=== PATIENT | female | born 1940 | race Caucasian/White ===

== ENCOUNTER 2023-02-10 10:35 | Inpatient (IN) | payer MEDICARE, OTHER, SELFPAY ==
[2023-02-10] VITALS (13 sets, daily range): BP systolic 94–139; BP diastolic 35–75; PULSE 82–112; RESP 18–24; TEMP 36.6–37.4; O2SAT 90–92; BMI 34.9
--- NOTE | ~2023-02-10 | CT_ITS ---
EXAMINATION: CT HEAD WITHOUT CONTRAST CLINICAL INFORMATION: Slurred speech. COMPARISON: None available. TECHNIQUE: Contiguous axial imaging was performed from the skull base to vertex without intravenous administration of contrast. This CT examination was performed using dose optimization techniques as appropriate, variously including the following: *Automated exposure control *Adjustment of mA and/or kV according to patient size (this includes techniques or standardized protocols for targeted exams where dose is matched to indication/reason for exam; i.e. extremities or head) *Use of iterative reconstruction technique DLP: 708 mGy-cm FINDINGS: There is cerebral volume loss with prominence of the lateral and the third ventricles. The cortical sulci are widened appropriately. The fourth ventricle and basal cisterns are normally outlined. There is mild to moderate bilateral periventricular and central white matter diminished attenuation. There is an old anterior left thalamic lacunar infarct. There is a hypodensity within the upper left estefania/cerebral peduncle without significant mass effect also suggesting a lacunar infarct. There is no definitive significant territorial defect, hemorrhage or midline shift. The extra-axial spaces are unremarkable. Calvarium: Intact. Maxillofacial sinuses and mastoids: Clear as visualized. CT/CT head/brain wo IV con IMPRESSION: Cerebral volume loss and [id number] bilateral periventricular and central white matter diminished attenuation which is nonspecific but likely to represent microvascular disease. Old lacunar infarcts of the left thalamus and upper left estefania/left cerebral peduncle. No definitive acute intracranial abnormality.
--- NOTE | ~2023-02-10 | XR_ITS ---
EXAMINATION: XR CHEST CLINICAL INFORMATION: Hypoxia COMPARISON: None available. TECHNIQUE: 2 views of the chest were obtained. FINDINGS: vascularity. LUNGS: Lungs are clear. No pneumothorax is seen. BONES: Bony skeleton is intact. XR/XR chest 2V IMPRESSION: Normal chest x-ray. Please note that chest x-ray has limited sensitivity for groundglass infiltrates.
--- NOTE | ~2023-02-10 | US_ITS ---
EXAMINATION: US RETROPERITONEAL LIMITED (RENAL ONLY) CLINICAL INFORMATION: Urinary tract infection. Sepsis. COMPARISON: None available. TECHNIQUE: Real-time imaging of the kidneys. Technically limited exam due to patient's altered level of awareness. FINDINGS: RIGHT KIDNEY: 10.5 x 5.3 x 5.3 cm (SAG x AP x TRV). The kidney is normal in size, contour, and echogenicity. Renal cortical thickness is normal. No calculi or focal parenchymal lesions. No hydronephrosis. LEFT KIDNEY: 11.0 x 5.9 x 5.5 cm (SAG x AP x TRV). The kidney is normal in size, contour, and echogenicity. Renal cortical thickness is normal. No calculi or focal parenchymal lesions. No hydronephrosis. US/US renal BI IMPRESSION: No acute abnormality.
--- NOTE | ~2023-02-10 | XR_ITS ---
EXAMINATION: XR CHEST CLINICAL INFORMATION: Hypoxia COMPARISON: 02/10/2023 TECHNIQUE: Frontal view of the chest was obtained. FINDINGS: Lung volumes remain low. There is no gross pneumothorax. Stable cardiomediastinal silhouette. Mild prominence of the interstitium may be related to low lung volumes or minimal edema. Left basilar streaky opacities may represent atelectasis, although pneumonia could also contribute to the appearance. XR/XR chest 1V IMPRESSION: Mild prominence of the interstitium may be related to low lung volumes or minimal edema. Left basilar streaky opacities may represent atelectasis, although pneumonia could also contribute to the appearance. This study was presented today 02/14/2023 at 12:47 PM for interpretation.
--- NOTE | 2023-02-10 10:53 | PC.NURSE ---
Patient reports feeling weak, tired, clammy, diaphoretic, and urinating a lot since last night. Denies headache or chest pain. 91% on 3 liters 02, not on home 02
--- NOTE | 2023-02-10 11:09 | ECG_ITS ---
Test Reason : STROKE ALERT Blood Pressure : / mmHG Vent. Rate : 090 BPM Atrial Rate : 090 BPM P-R Int : 164 ms QRS Dur : 098 ms QT Int : 450 ms P-R-T Axes : 032 -19 009 degrees QTc Int : 550 ms Normal sinus rhythm Moderate voltage criteria for LVH, may be normal variant ( R in aVL , [place] product ) Cannot rule out Anterior infarct , age undetermined Abnormal ECG When compared with ECG of 19-DEC-2019 12:39, Premature ventricular complexes are no longer Present Referred By: Chloe Hayden Electronically Signed By:SHAYY DERAS MD
--- NOTE | 2023-02-10 11:12 | ED_ITS ---
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 Patient reports this is very similar to how she felt with her last UTI 1 year ago. A majority of patient's history given by patient's daughter as patient is altered from baseline. Patient's assisted living staff told daughter that patient has been diaphoretic and light headed since Tuesday. Fever was recorded earlier in the week and patient had several episodes of N/V starting yesterday. Daughter reports that patient has a baseline weakness from her stroke but patient's weakness and confusion today is declined from baseline.Patient has a 70year history of smoking and has a baseline SpO2 of 90-92%, not on oxygen. Patient denies ZAPATA, chest pain, SOB, abdominal pain, urinary sxs. MD complaint: weakness, AMS Onset (ago): day(s) (3) Location: head Severity: moderate Treatments prior to arrival: none Related Data Home Medications Medication Instructions Recorded Confirmed albuterol sulfate 90 mcg/actuation 2 puff inhalation Q4-6H PRN sob or 02/10/23 aerosol inhaler Wheezing apixaban 5 mg tablet (Eliquis) 5 mg PO DAILY 02/10/23 atorvastatin 40 mg tablet 40 mg PO BEDTIME 02/10/23 cholecalciferol (vitamin D3) 25 25 mcg PO DAILY 02/10/23 mcg (1,000 unit) tablet docusate sodium 100 mg tablet 100 mg PO BID 02/10/23 fluticasone propionate 45 2 puff inhalation BID 02/10/23 mcg-salmeterol 21 mcg/actuation HFA inhaler (Advair HFA) meclizine 25 mg tablet 25 mg PO BID 02/10/23 montelukast 10 mg tablet 10 mg PO DAILY 02/10/23 ondansetron 4 mg disintegrating 4 mg PO Q6H PRN Nausea 02/10/23 tablet sertraline 100 mg tablet 100 mg PO BID 02/10/23 Allergies Allergy/AdvReac Type Severity Reaction Status Date / Time No Known Allergies Allergy Unverified 01/17/20 19:45 [No Known Allergies*] Review of Systems 2 Review of Systems: Yes all other systems are reviewed and are negative [facility] Social History Social History Alcohol intake: former Smoked in Last 30 Days: No Use of substances other than those prescribed or required for medical reasons: No Advance Directives: Yes Advance Directives on File: No Physical Exam ED Vital Signs: Vital Signs - 24 hr 02/10/23 10:50 02/10/23 10:55 02/10/23 14:42 Temperature 97.9 F Pulse Rate 95 98 82 Respiratory Rate 18 18 Blood Pressure 122/52 L 122/52 L Pulse Oximetry 90 L 92 92 Oxygen Delivery Method Nasal Cannula Nasal Cannula Nasal Cannula Oxygen Flow Rate 3 BMI result Body Mass Index 34.9 Appearance: lethargic elderly female. Oriented X3. No acute distress. +Fatigued. Head: normocephalic, atraumatic. Eyes: Pupils equal, round and reactive to light. ENT: Pharynx normal. No tonsillar swelling or exudate. Neck: Normal inspection. Neck supple. CVS: Normal heart rate and rhythm. Pulses normal. Respiratory: No respiratory distress. Breath sounds normal. Abdomen: Soft and nontender. +BS x4 Skin: Skin warm and dry. Normal skin color. Normal skin turgor. No rashes. Extremities: No lower extremity edema. No joint swelling. Bilateral UE/LE strength 3/5. Neuro/psych: Oriented x3. No sensory deficit. CN II-XII intact. +Slowed, weak speech. +decreased hand coordination. answers questions appropriately and follows commands External Female Exam: No normal external appearance (4cm firm, symmetric, mass on the right medial labia minora), normal appearance of the urethra, No erythema and No urethral discharge Medications Administered Discontinued Medications Generic Name Dose Route Start Last Admin Trade Name Freq PRN Reason Stop Dose Admin Sodium Chloride 1,000 mls @ 999 mls/hr 02/10/23 12:15 02/10/23 13:32 Ns IVCONT 02/10/23 13:15 Infused .Q1H1M ANGIE Infusion Ceftriaxone Sodium 1 gm/ 50 mls @ 100 mls/hr 02/10/23 12:47 02/10/23 14:44 Sodium Chloride IV 02/10/23 13:16 Infused ONCE ONE Infusion Potassium Chloride 40 meq 02/10/23 12:54 02/10/23 13:40 Potassium Chloride Packet 20 Meq Packet PO 02/10/23 12:55 40 meq ONCE ONE Administration Medical Decision Making Medical Decision Making [facility] Narrative: This is an 83yo female with a PMH of CVA on Eliquis and incontinence presenting by EMS called by assisted living staff due to progressively worsening lightheadedness and general weakness that started 3 days ago. History given by daughter as patient is altered from baseline. Vitals stable, baseline SpO2 92% on RA. heavy former smoker, on advair at home. No respiratory complaints, no SOB or cough. Patient's labs show WBC 21.1. BUN 22 and Cr 1.19 (increased from baseline of .74) indicating a mild CARYN most likely due to dehydration in which patient was given fluids. UA showed +nitrates and 4+ bacteria indicating UTI - patient was given IV ceftriaxone 1gm. Patient also received oral potassium chloride 40meq due to a Potassium 2.9mmol/L. Lactate and blood cultures ordered - lactic normal. CXR without PNA patient meeting sepsis criteria w/ HR >90, WBC 21K. + UTI. she is altered. Based on patients lab results and clinical presentation, patient is most likely suffering from acute metabolic encephalopathy secondary to UTI. will require admission. no evidence of severe sepsis or septic shock at this time Differential Diagnosis Differential Diagnoses: The differential diagnosis associated with the presentation includes Acute metabolic encephalopathy due to Urinary tract infection, Electrolyte abnormality, Covid, Influenza, Anemia. Less suspicion for CVA, meningitis. Admission/Observation Consideration of admission/observation: Escalation of care including admission/observation considered encephalopathic w/ infection Consult Healthcare Provider Management of the patient was discussed with: Hospitalist Lab Data [facility] Lab Attestation statement: I reviewed the patient's lab results. significant leukocytosis w/ bandemia 02/10/23 12:15 02/10/23 12:15 Labs: Lab Results 02/10/23 02/10/23 02/10/23 Range/Units 12:15 12:17 13:23 WBC 21.1 H (4.8-10.8) X10*3/uL RBC 3.98 L (4.20-5.50) X10*6/uL Hgb 12.4 (12.0-16.0) g/dl Hct 37.6 (37.0-47.0) % MCV 94.5 (80.0-98.0) fL MCH 31.2 (27.0-33.0) pg MCHC 33.0 (31.0-35.0) g/dl RDW 13.8 (11.0-16.0) % Plt Count 225 (160-400) X10*3/uL MPV 10.1 (9.4-12.3) fL Immature Gran % (Auto) Cancelled Neut % (Auto) Cancelled Lymph % (Auto) Cancelled [place] % (Auto) Cancelled Eos % (Auto) Cancelled Baso % (Auto) Cancelled Lymph # (Auto) Cancelled [place] # (Auto) Cancelled Eos # (Auto) Cancelled Baso # (Auto) Cancelled Abs Immat Gran (auto) Cancelled Absolute Neuts (auto) Cancelled Absolute Nucleated RBC 0.000 (0.0-0.012) X10*3/uL Nucleated RBC % (auto) 0.0 (0.0-0.2) /100WBC Neutrophils % (Manual) 78 H (45-73) % Band Neutrophils % 19 H (3-5) % Lymphocytes % (Manual) 1 L (20-40) % Monocytes % (Manual) 2 (2-11) % Abs Neuts (Manual) 20.5 H (2.0-8.3) X10*3/uL Lymphocytes # (Manual) 0.2 L (1.2-4.9) X10*3/uL Monocytes # (Manual) 0.4 (0.1-1.2) X10*3/uL Toxic Vacuolation PRESENT Platelet Estimate NORMAL (NORMAL) Plt Morphology Comment NORMAL RBC Morphology NORMAL VBG pH 7.38 (7.32-7.43) VBG pCO2 36 mmHg VBG pO2 59 mmHg VBG HCO3 21 L (22-26) mmol/L VBG O2 Saturation 81.0 % VBG Base Excess -2.5 mmol/L Sodium 142 (135-145) mmol/L Potassium 2.9 L (3.3-5.1) mmol/L Chloride 110 H (96-108) mmol/L Carbon Dioxide 21 L (22-29) mmol/L Anion Gap 14 (12-20) BUN 22 H (9-16) mg/dL Creatinine 1.19 (0.5-1.4) mg/dL Estim Creat Clear Calc 39.4 Estimated GFR 43 Random Glucose 199 H (60-115) mg/dL Lactic Acid 1.5 (0.5-2.0) mmol/L Calcium 9.3 (8.4-10.2) mg/dL Magnesium 1.8 (1.6-2.6) mg/dL Total Bilirubin 0.8 (0.0-1.0) mg/dL Direct Bilirubin 0.4 (0.0-0.5) mg/dL AST 33 H (5-31) U/L ALT 17 (0-31) U/L Alkaline Phosphatase 91 (39-117) U/L Ammonia 27 (13-55) umol/L Total Protein 7.1 (6.5-8.0) g/dL Albumin 3.8 (3.5-5.0) g/dL Urine Color Urine Appearance Urine pH (5.0-9.0) Ur Specific [place] (1.005-1.025) Urine Protein (Neg-Trace) mg/dL Urine Glucose (UA) (Negative) mg/dL Urine Ketones (Negative) mg/dL Urine Blood (Negative) Urine Nitrite (Negative) Ur Leukocyte Esterase (Negative) Urine RBC (0-2) /HPF Urine WBC (0-5) /HPF Ur Squamous Epith Cells (0-2) /HPF Urine Bacteria (None Seen) Hyaline Casts (0-2) /LPF Influenza Type A (PCR) NEGATIVE (Negative) Influenza Type B (PCR) NEGATIVE (Negative) RSV RNA Qual (PCR) NEGATIVE (Negative) SARS-CoV-2 RNA (RT-PCR) NEGATIVE (Negative) 02/10/23 Range/Units 13:35 WBC (4.8-10.8) X10*3/uL RBC (4.20-5.50) X10*6/uL Hgb (12.0-16.0) g/dl Hct (37.0-47.0) % MCV (80.0-98.0) fL MCH (27.0-33.0) pg MCHC (31.0-35.0) g/dl RDW (11.0-16.0) % Plt Count (160-400) X10*3/uL MPV (9.4-12.3) fL Immature Gran % (Auto) Neut % (Auto) Lymph % (Auto) [place] % (Auto) Eos % (Auto) Baso % (Auto) Lymph # (Auto) [place] # (Auto) Eos # (Auto) Baso # (Auto) Abs Immat Gran (auto) Absolute Neuts (auto) Absolute Nucleated RBC (0.0-0.012) X10*3/uL Nucleated RBC % (auto) (0.0-0.2) /100WBC Neutrophils % (Manual) (45-73) % Band Neutrophils % (3-5) % Lymphocytes % (Manual) (20-40) % Monocytes % (Manual) (2-11) % Abs Neuts (Manual) (2.0-8.3) X10*3/uL Lymphocytes # (Manual) (1.2-4.9) X10*3/uL Monocytes # (Manual) (0.1-1.2) X10*3/uL Toxic Vacuolation Platelet Estimate (NORMAL) Plt Morphology Comment RBC Morphology VBG pH (7.32-7.43) VBG pCO2 mmHg VBG pO2 mmHg VBG HCO3 (22-26) mmol/L VBG O2 Saturation % VBG Base Excess mmol/L Sodium (135-145) mmol/L Potassium (3.3-5.1) mmol/L Chloride (96-108) mmol/L Carbon Dioxide (22-29) mmol/L Anion Gap (12-20) BUN (9-16) mg/dL Creatinine (0.5-1.4) mg/dL Estim Creat Clear Calc Estimated GFR Random Glucose (60-115) mg/dL Lactic Acid (0.5-2.0) mmol/L Calcium (8.4-10.2) mg/dL Magnesium (1.6-2.6) mg/dL Total Bilirubin (0.0-1.0) mg/dL Direct Bilirubin (0.0-0.5) mg/dL AST (5-31) U/L ALT (0-31) U/L Alkaline Phosphatase (39-117) U/L Ammonia (13-55) umol/L Total Protein (6.5-8.0) g/dL Albumin (3.5-5.0) g/dL Urine Color Dark Yellow Urine Appearance Turbid Urine pH 7.5 (5.0-9.0) Ur Specific [place] 1.020 (1.005-1.025) Urine Protein 100 (2+) H (Neg-Trace) mg/dL Urine Glucose (UA) Negative (Negative) mg/dL Urine Ketones Trace (Negative) mg/dL Urine Blood Moderate (2+) H (Negative) Urine Nitrite Positive H (Negative) Ur Leukocyte Esterase Large (3+) H (Negative) Urine RBC >20 H (0-2) /HPF Urine WBC >50 H (0-5) /HPF Ur Squamous Epith Cells 11-20 (0-2) /HPF Urine Bacteria 4+ (None Seen) Hyaline Casts 6-10 (0-2) /LPF Influenza Type A (PCR) (Negative) Influenza Type B (PCR) (Negative) RSV RNA Qual (PCR) (Negative) SARS-CoV-2 RNA (RT-PCR) (Negative) Independent Interpretation I performed an independent interpretation of an: Plain X-Ray and CT Scan Interpretation: CT head without acute bleed or edema, volume loss noted, agree w/ radiology read CXR without focal infiltrate EKG w normal sinus rhythm, HR 90 bpm, artifact in lead V3. t-wave inversions in leads III and V1 only. no ST segment elevations or depressions Radiology Impression Discussion of test interpretation with radiology: I have reviewed the radiologist's reading. Radiologist Impression: CT/CT head/brain wo IV con IMPRESSION: Cerebral volume loss and [id number] bilateral periventricular and central white matter diminished attenuation which is nonspecific but likely to represent microvascular disease. Old lacunar infarcts of the left thalamus and upper left estefania/left cerebral peduncle. No definitive acute intracranial abnormality. Independent Historian Clinical information obtained from an independent historian. History obtained from or confirmed by: Other (adult daughter) External Record Review External record reviewed: Outpatient record and Prior outpatient labs Prescription Management I considered prescription management with: Antibiotic Chronic Conditions Patient?s care impacted by: Other (CVA) Critical Care Time Critical Care Time Critical Care Time: Yes Total Critical Care Time: 44 Attestation: I have personally provided critical care time exclusive of time spent on separately billable procedures. Time includes review of lab data, radiology results, discussion with consultants, and monitoring for potential decompensation. Intervention performed as documented. Discharge Plan Discharge Clinical Impression: Acute metabolic encephalopathy, Acute UTI Sepsis Qualifiers: Sepsis type: sepsis due to unspecified organism Sepsis acute organ dysfunction status: unspecified Qualified Code(s): A41.9 - Sepsis, unspecified organism Patient Disposition: Admitted As Inpatient
[2023-02-10] MEDS: 0.9 % Sodium Chloride 1,000 ML 999 ML IVCONT (12:10)
[2023-02-10 12:24] LABS: Hematocrit 37.6 % (37.0-47.0); Hemoglobin 12.4 g/dl (12.0-16.0); Mean Corpuscular Hemoglobin 31.2 pg (27.0-33.0); Mean Corpuscular Volume 94.5 fL (80.0-98.0); Mean Platelet Volume 10.1 fL (9.4-12.3); Platelet Count 225 X10*3/uL (160-400); Red Blood Count 3.98 X10*6/uL (4.20-5.50); Red Cell Distribution Width 13.8 % (11.0-16.0); White Blood Count 21.1 X10*3/uL (4.8-10.8)
[2023-02-10 12:27] LABS: Venous Blood Gas Refer to POC result
[2023-02-10 12:29] LABS: VBG Base Excess -2.5 mmol/L; VBG HCO3 21 mmol/L (22-26); VBG pCO2 36 mmHg; VBG pH 7.38 (7.32-7.43); VBG pO2 59 mmHg
[2023-02-10 12:32] LABS: Ammonia 27 umol/L (13-55)
[2023-02-10 12:38] LABS: Alanine Aminotransferase 17 U/L (0-31); Albumin Level 3.8 g/dL (3.5-5.0); Alkaline Phosphatase 91 U/L (39-117); Anion Gap 14 (12-20); Aspartate Amino Transferase 33 U/L (5-31); Bilirubin Direct 0.4 mg/dL (0.0-0.5); Bilirubin Total 0.8 mg/dL (0.0-1.0); Blood Urea Nitrogen 22 mg/dL (9-16); Calcium 9.3 mg/dL (8.4-10.2); Carbon Dioxide 21 mmol/L (22-29); Chloride 110 mmol/L (96-108); Creatinine Clr Calc Pharmacy 39.4; Estimated Glomerular Filt Rate 43; Glucose Random 199 mg/dL (60-115); Magnesium 1.8 mg/dL (1.6-2.6); Potassium 2.9 mmol/L (3.3-5.1); Sodium 142 mmol/L (135-145); Total Protein 7.1 g/dL (6.5-8.0)
[2023-02-10 12:54] LABS: Neutrophils Percent Manual 78 % (45-73)
[2023-02-10 12:56] LABS: Band Neutrophils Percent 19 % (3-5); Lymphocytes Absolute Manual 0.2 X10*3/uL (1.2-4.9); Lymphocytes Percent Manual 1 % (20-40); Monocytes Absolute Manual 0.4 X10*3/uL (0.1-1.2); Monocytes Percent Manual 2 % (2-11); Neutrophils Absolute Manual 20.5 X10*3/uL (2.0-8.3)
[2023-02-10 12:57] LABS: Platelet Estimate NORMAL (NORMAL); Platelet Morphology Comment NORMAL; RBC Morphology NORMAL; Toxic Vacuolation PRESENT
[2023-02-10 13:00] LABS: Influenza A PCR NEGATIVE (Negative); Influenza B PCR NEGATIVE (Negative); Resp Syncy Virus RNA Qual PCR NEGATIVE (Negative); SARS COV2 PCR INHOUSE NEGATIVE (Negative)
[2023-02-10] MEDS: cefTRIAXone sodium 1 GM in 0.9 % Sodium Chloride 50 ML IV (13:32)
[2023-02-10] MEDS: Potassium Chloride Packet 20 MEQ PACKET 40 MEQ PO (13:40)
[2023-02-10 13:42] LABS: Appearance Urine Turbid; Color Urine Dark Yellow; Glucose Urine UA Negative (Negative); Leukocyte Esterase Urine Large (3+) (Negative); Nitrite Urine Positive (Negative); PH 7.5 (5.0-9.0); UMIC TRIGGER UACC YES; Urine Blood Moderate (2+) (Negative); Urine Ketones Trace mg/dL (Negative); Urine Protein 100 (2+) mg/dL (Neg-Trace)
[2023-02-10 13:51] LABS: Lactic Acid 1.5 mmol/L (0.5-2.0)
[2023-02-10 13:56] LABS: Bacteria Urine 4+ (None Seen); RBC Urine >20 /HPF (0-2); UACC Culture Trigger YES; WBC Urine >50 /HPF (0-5)
--- NOTE | 2023-02-10 15:35 | PM.IMHP ---
History of Present Illness Date of Service: 02/10/23 Chief Complaint: weakness, lightheadedness History from the patient and her HCP/daughter Ariane Lockwood. 83yo F resident of [facility] living [facility], PMHx significant for CVA in 2014 complicated by aphasia/R hemiparesis requiring feeding tube but with recovery to the point where she now feeds herself, CARON intolerant of CPAP, COPD not on home oxygen. She comes in with 2-3 days of worsening lightheadedness and generalized weakness along with several episodes of vomiting. She has been urinating more frequently and complains of some discomfort with urination. [place] staff was concerned about her appearing dipahoretic and sent her in for evaluation. She has a history of a prior UTI with similar symptoms. She was found to be septic with 21.1k WBCs, 19% bands, and tachycardia in the 90s. She was mildly confused; CT head showed microvascular disease and old lacunar infarcts of the L thalamus and upper L estefania/cerebral peduncle. CXR was negative. She had nitrituria, pyuria, and bacteruria. Serum creatinine was slightly elevated to 1.19 compared to baseline of 0.8 in August 2022 at [facility]. Serum potassium was 2.9. BP was 122/52. Lactate was 1.5. She was given 1L of normal saline and 1g of IV ceftriaxone along with 40 mEq of KCl. Review of Systems Review of Systems: Yes all other systems are reviewed and are negative [facility] Medical History CARON (obstructive sleep apnea) COPD (chronic obstructive pulmonary disease) Anxiety disorder History of stroke Social History Alcohol intake: former Smoked in Last 30 Days: No Use of substances other than those prescribed or required for medical reasons: No Advance Directives: Yes Advance Directives on File: No Meds Allergies Allergy/AdvReac Type Severity Reaction Status Date / Time No Known Allergies Allergy Unverified 01/17/20 19:45 [No Known Allergies*] Active Medications: Current Medications Acetaminophen (Acetaminophen 325 Mg Tablet) 650 mg PO Q6H PRN PRN Reason: Pain, Mild (Pain Scale 1-3) Ceftriaxone Sodium 1 gm/ (Sodium Chloride) 50 mls @ 100 mls/hr IV Q24H [facility] Sodium Chloride (Ns) 1,000 mls @ 125 mls/hr IVCONT .Q8H ANGIE Potassium Chloride (Potassium Chloride/H20) 10 meq in 100 mls @ 100 mls/hr IV Q1H [facility] Stop: 02/10/23 17:29 Ondansetron HCl (Ondansetron Hcl 4 Mg/2 Ml Vial) 4 mg IVPUSH Q8H PRN PRN Reason: Nausea and Vomiting Sodium Chloride (0.9 % Sodium Chloride Flush 3 Ml Syringe) 3 ml IVFLUSH QSHIFT [facility] Home Medications Medication Instructions Recorded Confirmed Last Taken Type albuterol sulfate 90 mcg/actuation 2 puff inhalation Q4-6H PRN sob or 02/10/23 02/10/23 Unknown History aerosol inhaler Wheezing apixaban 5 mg tablet (Eliquis) 5 mg PO BID 02/10/23 02/10/23 Unknown History atorvastatin 40 mg tablet 40 mg PO BEDTIME 02/10/23 02/10/23 Unknown History cholecalciferol (vitamin D3) 25 25 mcg PO DAILY 02/10/23 02/10/23 Unknown History mcg (1,000 unit) tablet docusate sodium 100 mg tablet 100 mg PO BID 02/10/23 02/10/23 Unknown History fluticasone propionate 45 2 puff inhalation BID 02/10/23 02/10/23 Unknown History mcg-salmeterol 21 mcg/actuation HFA inhaler (Advair HFA) meclizine 25 mg tablet 25 mg PO BID 02/10/23 02/10/23 Unknown History montelukast 10 mg tablet 10 mg PO DAILY 02/10/23 02/10/23 Unknown History ondansetron 4 mg disintegrating 4 mg PO Q6H PRN Nausea 02/10/23 02/10/23 Unknown History tablet sertraline 100 mg tablet 100 mg PO BID 02/10/23 02/10/23 Unknown History Physical Exam Vital Signs and Narrative: Vital Signs: Last Vital Signs Temp 97.9 F 02/10/23 10:50 Pulse 82 02/10/23 14:42 Resp 18 02/10/23 14:42 BP 122/52 L 02/10/23 10:55 Pulse Ox 92 02/10/23 14:42 O2 Del Method Nasal Cannula 10/12/23 14:42 O2 Flow Rate 3 02/10/23 14:42 BMI result Body Mass Index 34.9 Gen: lethargic but arousable, ill-appearing HEENT: sclera anicteric, moist mucus membranes Neck: supple Lungs: clear to auscultation bilaterally Heart: regular rate and rhythm, no murmurs Abd: soft, non-tender, non-distended : 4cm firm, nontender mass on R medial labia Ext: no edema Skin: warm/well-perfused Neuro: alert and oriented to self and mm/dd/yy date but not place ( [facility] ), 4/5 strength in all extremities except 3/5 in RLE Psych: appropriate affect Results Labs 02/10/23 12:15 02/10/23 12:15 Labs: Laboratory Results - last 24 hr 02/10/23 02/10/23 02/10/23 12:15 12:17 13:23 MCV 94.5 MCH 31.2 MCHC 33.0 RDW 13.8 Plt Count 225 MPV 10.1 Immature Gran % (Auto) Cancelled Neut % (Auto) Cancelled Lymph % (Auto) Cancelled [place] % (Auto) Cancelled Eos % (Auto) Cancelled Baso % (Auto) Cancelled Lymph # (Auto) Cancelled [place] # (Auto) Cancelled Eos # (Auto) Cancelled Baso # (Auto) Cancelled Abs Immat Gran (auto) Cancelled Absolute Neuts (auto) Cancelled Absolute Nucleated RBC 0.000 Nucleated RBC % (auto) 0.0 Neutrophils % (Manual) 78 H Band Neutrophils % 19 H Lymphocytes % (Manual) 1 L Monocytes % (Manual) 2 Abs Neuts (Manual) 20.5 H Lymphocytes # (Manual) 0.2 L Monocytes # (Manual) 0.4 Toxic Vacuolation PRESENT Platelet Estimate NORMAL Plt Morphology Comment NORMAL RBC Morphology NORMAL VBG pH 7.38 VBG pCO2 36 VBG pO2 59 VBG HCO3 21 L VBG O2 Saturation 81.0 VBG Base Excess -2.5 Anion Gap 14 Estim Creat Clear Calc 39.4 Estimated GFR 43 Random Glucose 199 H Lactic Acid 1.5 Calcium 9.3 Magnesium 1.8 Total Bilirubin 0.8 Direct Bilirubin 0.4 AST 33 H ALT 17 Alkaline Phosphatase 91 Ammonia 27 Total Protein 7.1 Albumin 3.8 Urine Color Urine Appearance Urine pH Ur Specific [place] Urine Protein Urine Glucose (UA) Urine Ketones Urine Blood Urine Nitrite Ur Leukocyte Esterase Urine RBC Urine WBC Ur Squamous Epith Cells Urine Bacteria Hyaline Casts Influenza Type A (PCR) NEGATIVE Influenza Type B (PCR) NEGATIVE RSV RNA Qual (PCR) NEGATIVE SARS-CoV-2 RNA (RT-PCR) NEGATIVE 02/10/23 13:35 MCV MCH MCHC RDW Plt Count MPV Immature Gran % (Auto) Neut % (Auto) Lymph % (Auto) [place] % (Auto) Eos % (Auto) Baso % (Auto) Lymph # (Auto) [place] # (Auto) Eos # (Auto) Baso # (Auto) Abs Immat Gran (auto) Absolute Neuts (auto) Absolute Nucleated RBC Nucleated RBC % (auto) Neutrophils % (Manual) Band Neutrophils % Lymphocytes % (Manual) Monocytes % (Manual) Abs Neuts (Manual) Lymphocytes # (Manual) Monocytes # (Manual) Toxic Vacuolation Platelet Estimate Plt Morphology Comment RBC Morphology VBG pH VBG pCO2 VBG pO2 VBG HCO3 VBG O2 Saturation VBG Base Excess Anion Gap Estim Creat Clear Calc Estimated GFR Random Glucose Lactic Acid Calcium Magnesium Total Bilirubin Direct Bilirubin AST ALT Alkaline Phosphatase Ammonia Total Protein Albumin Urine Color Dark Yellow Urine Appearance Turbid Urine pH 7.5 Ur Specific [place] 1.020 Urine Protein 100 (2+) H Urine Glucose (UA) Negative Urine Ketones Trace Urine Blood Moderate (2+) H Urine Nitrite Positive H Ur Leukocyte Esterase Large (3+) H Urine RBC >20 H Urine WBC >50 H Ur Squamous Epith Cells 11-20 Urine Bacteria 4+ Hyaline Casts 6-10 Influenza Type A (PCR) Influenza Type B (PCR) RSV RNA Qual (PCR) SARS-CoV-2 RNA (RT-PCR) Imaging Radiologist's Impressions: Impressions Chest X-Ray 02/10/23 11:25 IMPRESSION: Normal chest x-ray. Please note that chest x-ray has limited sensitivity for groundglass infiltrates. Head CT 02/10/23 13:14 IMPRESSION: Cerebral volume loss and [id number] bilateral periventricular and central white matter diminished attenuation which is nonspecific but likely to represent microvascular disease. Old lacunar infarcts of the left thalamus and upper left estefania/left cerebral peduncle. No definitive acute intracranial abnormality. Assessment and Plan (1) Sepsis: Qualifiers: Sepsis acute organ dysfunction status: unspecified Sepsis type: sepsis due to unspecified organism Qualified Code(s): A41.9 - Sepsis, unspecified organism Status: Acute (2) Acute UTI: Status: Acute Plan 83yo F with hx CVA on apixaban, CARON not on CPAP, and COPD not on home oxygen presenting with 2-3d of lightheadedness, weakness, vomiting, and urinary discomfort found to be confused and septic due to UTI acute encephalopathy due to sepsis due to UTI - admit to telemetry, give IV fluids, IV ceftriaxone, follow blood + urine cultures, check renal US hypoK - replete IV/PO, recheck in AM COPD - continue prn albuterol, ICS/LABA hx CVA - continue apixaban, atorvastatin anxiety - continue sertraline VTE ppx - apixaban dispo - anticipate eventual return to [facility] code - DNR/DNI, confirmed with pt and daughter I anticipate that the patient will stay at least 2 midnights as an inpatient in the hospital due to the above reasons. It is neither reasonable nor safe to care for them in a less acute setting. Time Spent With Patient Time: Total time managing care of this patient today ____ minutes. Quality Stroke Does the patient have a stroke diagnosis?: No VTE Prior VTE?: No VTE Risk Level:: Medical - moderate - high VTE Device Contraindication: N/A - Device Ordered VTE Drug Contraindication: N/A - Med Ordered
--- NOTE | 2023-02-10 15:39 | PHA.MEDREC ---
Pharmacy Consult ? Medication Reconciliation Pharmacy has completed the medication reconciliation. List from the [facility] was with patient. It stated Eliquis once a day, called daughter Ariane to confirm if that was accurate. Patient is suppose to be taking eliquis BID. Reports patient is suppose to be getting a prescription for bupropion but they have not received it yet. Razia Santos, PharmD
--- NOTE | 2023-02-10 15:47 | P.CONOB_ITS ---
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 Upon inspection right vulvar swelling was identified. Patient does not give history of any fall or trauma at the perineum, no history of pain on the right vulvar area, no vaginal discharge cc:: CC: Thania Forrester MD [facility] Past Medical History Medical History CARON (obstructive sleep apnea) COPD (chronic obstructive pulmonary disease) Anxiety disorder History of stroke Social History Social History Alcohol intake: former Smoked in Last 30 Days: No Use of substances other than those prescribed or required for medical reasons: No Advance Directives: Yes Advance Directives on File: No Meds Allergies Allergy/AdvReac Type Severity Reaction Status Date / Time No Known Allergies Allergy Unverified 01/17/20 19:45 [No Known Allergies*] Active Medications: Current Medications Acetaminophen (Acetaminophen 325 Mg Tablet) 650 mg PO Q6H PRN PRN Reason: Pain, Mild (Pain Scale 1-3) Ceftriaxone Sodium 1 gm/ (Sodium Chloride) 50 mls @ 100 mls/hr IV Q24H ANGIE Sodium Chloride (Ns) 1,000 mls @ 125 mls/hr IVCONT .Q8H ANGIE Potassium Chloride (Potassium Chloride/H20) 10 meq in 100 mls @ 100 mls/hr IV Q1H ANGIE Stop: 02/10/23 17:29 Ondansetron HCl (Ondansetron Hcl 4 Mg/2 Ml Vial) 4 mg IVPUSH Q8H PRN PRN Reason: Nausea and Vomiting Sodium Chloride (0.9 % Sodium Chloride Flush 3 Ml Syringe) 3 ml IVFLUSH QSHIFT [facility] Home Medications Medication Instructions Recorded Confirmed Last Taken Type albuterol sulfate 90 mcg/actuation 2 puff inhalation Q4-6H PRN sob or 02/10/23 02/10/23 Unknown History aerosol inhaler Wheezing apixaban 5 mg tablet (Eliquis) 5 mg PO BID 02/10/23 02/10/23 Unknown History atorvastatin 40 mg tablet 40 mg PO BEDTIME 02/10/23 02/10/23 Unknown History cholecalciferol (vitamin D3) 25 25 mcg PO DAILY 02/10/23 02/10/23 Unknown History mcg (1,000 unit) tablet docusate sodium 100 mg tablet 100 mg PO BID 02/10/23 02/10/23 Unknown History fluticasone propionate 45 2 puff inhalation BID 02/10/23 02/10/23 Unknown History mcg-salmeterol 21 mcg/actuation HFA inhaler (Advair HFA) meclizine 25 mg tablet 25 mg PO BID 02/10/23 02/10/23 Unknown History montelukast 10 mg tablet 10 mg PO DAILY 02/10/23 02/10/23 Unknown History ondansetron 4 mg disintegrating 4 mg PO Q6H PRN Nausea 02/10/23 02/10/23 Unknown History tablet sertraline 100 mg tablet 100 mg PO BID 02/10/23 02/10/23 Unknown History 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 Physical Exam Vitals Vital signs: Temp Pulse Resp BP Pulse Ox O2 Del Method O2 Flow Rate 97.9 F 82 18 122/52 L 92 Nasal Cannula 3 02/10/23 10:50 02/10/23 14:42 02/10/23 14:42 02/10/23 10:55 02/10/23 14:42 02/10/23 14:42 02/10/23 14:42 BMI result Body Mass Index 34.9 Female Genitalia (Pelvic) Mass: Cyst (R labia majora 3 x 3 cm mass) Cervix: Grossly normal Uterus: Normal size Adnexa/Parametria: Adnexal Tenderness: None, Adnexal Mass: None and Parametrial Tenderness: None 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 - Results Labs 02/10/23 12:15 02/10/23 12:15 Labs: Short CBC 02/10/23 Range/Units 12:15 WBC 21.1 H (4.8-10.8) X10*3/uL Hgb 12.4 (12.0-16.0) g/dl Hct 37.6 (37.0-47.0) % Plt Count 225 (160-400) X10*3/uL BMP 02/10/23 12:15 Sodium 142 Potassium 2.9 L Chloride 110 H Carbon Dioxide 21 L BUN 22 H Creatinine 1.19 Calcium 9.3 Liver Function 02/10/23 Range/Units 12:15 Total Bilirubin 0.8 (0.0-1.0) mg/dL Direct Bilirubin 0.4 (0.0-0.5) mg/dL AST 33 H (5-31) U/L ALT 17 (0-31) U/L Alkaline Phosphatase 91 (39-117) U/L Albumin 3.8 (3.5-5.0) g/dL Urine 02/10/23 Range/Units 13:35 Urine Color Dark Yellow Urine Appearance Turbid Urine pH 7.5 (5.0-9.0) Ur Specific [place] 1.020 (1.005-1.025) Urine Protein 100 (2+) H (Neg-Trace) mg/dL Urine Glucose (UA) Negative (Negative) mg/dL Assessment and Plan (1) Hematoma of perineum in female: Status: Acute Discussed the finding on physical exam with the patient's daughter Fred Lockwood with her healthcare proxy, the differential diagnosis discussed included but not limited to: labia minora abscess versus hematoma. Since the patient has evidence of infection leukocytosis, I&D is recommended. Discussed with Fred Comfort the patient's healthcare proxy all the benefits , alternatives (to do nothing) and risks including bleeding, infection, scar tissue development, possible injury to urethra, bladder bowel, ureter, possible need for blood transfusion and others. A verbal consent for an I and D of the right labia minora was given on the phone. Conversation was witnessed by Nasra Martinez RN. I&D of right labia majora was done, see procedure note Time Spent With Patient Time: Total time managing care of this patient today ____ minutes. I&D Drain Details: Right labia minora hematoma I & D Indication: Right labia minora hematoma. Prep: the skin was cleaned with Betadine. Anesthesia: 3 cc of Xylocaine was used for anesthesia Guidance: palpation was used for guidance. Technique: a nicking incision was made in the skin, using an 11-blade to incise the hematoma . Yield: 30 cc of blood clot came out. Result: This substantially decompressed the swelling. Dressing: a clean dressing was placed. Tolerance: The patient tolerated the procedure well. Disposition: The patient was sent home in stable condition. Before the procedure was started d/w patient's healthcare proxy Mateus Martinez the procedure, alternatives (do nothing), & all the risks associated with the procedure (bleeding , infection, scar tissue development, injury to bladder, vessels, bowels, possible need for transfusion with all its risks) then a verbal consent was given, [place]. [id number] of Hematoma/Fluid All charges added?: Procedure code (CPT) selection complete
[2023-02-10] MEDS: 0.9 % Sodium Chloride 1,000 ML 125 ML IVCONT (16:11)
[2023-02-10] MEDS: Potassium Chloride/H20 10 MEQ/100 ML PIGGYBACK 100 MEQ IV ×2 (16:28→17:54)
[2023-02-10] MEDS: Silver Nitrate Applicator STICK..EA. 1 APPL TOPICAL (16:32)
--- NOTE | 2023-02-10 16:35 | PC.NURSE ---
Seen by dr julian, consent obtained via phone from for procedure. Hematoma to right labia drained by dr julian, pressure dressing applied
--- NOTE | 2023-02-10 17:40 | PC.NURSE ---
no additioanl bleeding noted from labia, transferred back to regular stretcher, denies pain or discomfort
--- NOTE | 2023-02-10 19:38 | PC.NURSE ---
this rn assumed care of pt. pt a&ox3. respirations even and unlabored, lung sounds clear bilaterally. pt on 4L nasal cannula, sating between 92-93%. pt reports no pain at this time.
--- NOTE | 2023-02-10 20:33 | PC.NURSE ---
report given to guillermo in [facility] – [place].
[2023-02-10] MEDS: ondansetron HCL 4 MG/2 ML VIAL IVPUSH (21:48)
[2023-02-11] VITALS (7 sets, daily range): BP systolic 92–116; BP diastolic 53–57; PULSE 77–83; RESP 16–20; TEMP 36.2–37; O2SAT 92–94
[2023-02-11] MEDS: 0.9 % Sodium Chloride 1,000 ML 125 ML IVCONT ×2 (00:18→08:40)
--- NOTE | 2023-02-11 06:25 | PC.NURSE ---
pt bladder scanned at 06:25, 74mLs.
[2023-02-11 06:57] LABS: Hematocrit 34.3 % (37.0-47.0); Mean Corpuscular HGB Conc 32.1 g/dl (31.0-35.0); Mean Corpuscular Hemoglobin 31.2 pg (27.0-33.0); Mean Corpuscular Volume 97.2 fL (80.0-98.0); Mean Platelet Volume 10.6 fL (9.4-12.3); Platelet Count 170 X10*3/uL (160-400); Red Blood Count 3.53 X10*6/uL (4.20-5.50); Red Cell Distribution Width 14.4 % (11.0-16.0)
[2023-02-11 07:33] LABS: Alanine Aminotransferase 18 U/L (0-31); Albumin Level 3.3 g/dL (3.5-5.0); Alkaline Phosphatase 85 U/L (39-117); Anion Gap 15 (12-20); Aspartate Amino Transferase 24 U/L (5-31); Bilirubin Total 0.5 mg/dL (0.0-1.0); Blood Urea Nitrogen 29 mg/dL (9-16); Calcium 8.5 mg/dL (8.4-10.2); Carbon Dioxide 21 mmol/L (22-29); Chloride 115 mmol/L (96-108); Creatinine Clr Calc Pharmacy 33.5; Estimated Glomerular Filt Rate 36; Glucose Random 125 mg/dL (60-115); Potassium 4.2 mmol/L (3.3-5.1); Sodium 147 mmol/L (135-145); Total Protein 6.3 g/dL (6.5-8.0)
[2023-02-11] MEDS: 0.9 % Sodium Chloride 1,000 ML 500 ML IVCONT (08:40)
[2023-02-11] MEDS: Cholecalciferol (Vitamin D3) 25 MCG TABLET PO (08:49)
[2023-02-11] MEDS: Docusate Sodium 100 MG CAPSULE PO ×2 (08:49→22:07)
[2023-02-11] MEDS: Sertraline HCL 100 MG TABLET PO ×2 (08:49→22:07)
[2023-02-11] MEDS: Meclizine HCl 25 MG TABLET PO ×2 (08:49→22:07)
[2023-02-11] MEDS: Montelukast Sodium 10 MG TABLET PO (08:49)
--- NOTE | 2023-02-11 09:50 | MHC.CM.PN ---
IMM 02/11/23 DELIVERED TO BEDSIDE, PT A&O AND REPORTS SHE LIVES AT [facility] NOT INDEP LIVING, PT REPORTS SHE IS IN W/C AT [facility]ELINE AND STANDS & PIVOTS TO TOILET/BED AND [facility] STAFF ASSIST W/ALL ADL'S/NEEDS, PT GIVES VERBAL PERMISSION FOR CM TO SPEAK W/HCP/DTR [facility], PT REPORTS SHE WILL NEED TRANSPORT BACK TO [facility]. PT VERIFIES STEPH PETER IS PCP, COVID VACC X2 AND NO BOOSTERS AND HCP IS DTR [facility] AND COPY OF HCP/MOLST/DNR SENT IN W/PT FROM [facility]. ANTIC D/C BACK TO [facility] W/BLS TRANSPORT
[2023-02-11] MEDS: Fluticasone/Vilanterol 100/25 BLST.W.DEV 1 PUFF INHALE (11:57)
--- NOTE | 2023-02-11 12:06 | P.PNIM_ITS ---
Subjective Subjective Date of Service: 02/11/23 Interval History: afebrile but still feels weak and complains of nausea Review of Systems Review of Systems: Yes all other systems are reviewed and are negative Physical Exam 2 Vital Signs: Vital Signs: Last Vital Signs Temp 97.8 F 02/11/23 11:58 Pulse 77 02/11/23 12:05 Resp 20 02/11/23 12:05 BP 96/53 L 02/11/23 11:58 Pulse Ox 93 02/11/23 11:58 O2 Del Method Nasal Cannula 02/11/23 11:58 O2 Flow Rate 4 02/11/23 11:58 BMI result Body Mass Index 34.9 Gen: ill-appearing, no respiratory distress HEENT: sclera anicteric, moist mucus membranes Neck: supple Lungs: clear to auscultation bilaterally Heart: regular rate and rhythm, no murmurs Abd: soft, non-tender, non-distended Ext: no edema Skin: warm/well-perfused Neuro: alert and oriented x3, 4/5 strength in all extremities except 3/5 in RLE Psych: appropriate affect Objective Data Active Medications Acetaminophen (Acetaminophen 325 Mg Tablet) 650 mg PO Q6H PRN PRN Reason: Pain, Mild (Pain Scale 1-3) Albuterol Sulfate (Albuterol Sulfate 90 Mcg 8 Gm Inhaler) 2 puff INHALE Q4H PRN PRN Reason: sob or Wheezing Atorvastatin Calcium (Atorvastatin Calcium 40 Mg Tablet) 40 mg PO BEDTIME [facility] Docusate Sodium (Docusate Sodium 100 Mg Capsule) 100 mg PO BID [facility] Last Admin: 02/11/23 08:49 Dose: 100 mg Documented By: TITI Fluticasone/Vilanterol (Fluticasone/Vilanterol 100/25 Blst.W.Dev) 1 puff INHALE RDAILY [facility] Last Admin: 02/11/23 11:57 Dose: 1 puff Documented By: STARR Ceftriaxone Sodium 2 gm/ (Sodium Chloride) 50 mls @ 100 mls/hr IV Q24H [facility] Lactated Ringer's (Lr) 1,000 mls @ 150 mls/hr IVCONT .Q6H40M [facility] Meclizine HCl (Meclizine Hcl 25 Mg Tablet) 25 mg PO BID [facility] Last Admin: 02/11/23 08:49 Dose: 25 mg Documented By: TITI Montelukast Sodium (Montelukast Sodium 10 Mg Tablet) 10 mg PO DAILY [facility] Last Admin: 02/11/23 08:49 Dose: 10 mg Documented By: TITI Ondansetron HCl (Ondansetron Hcl 4 Mg/2 Ml Vial) 4 mg IVPUSH Q8H PRN PRN Reason: Nausea and Vomiting Last Admin: 02/10/23 21:48 Dose: 4 mg Documented By: ANNA Sertraline HCl (Sertraline Hcl 100 Mg Tablet) 100 mg PO BID [facility] Last Admin: 02/11/23 08:49 Dose: 100 mg Documented By: TITI Sodium Chloride (0.9 % Sodium Chloride Flush 3 Ml Syringe) 3 ml IVFLUSH QSHIFT [facility] Last Admin: 02/11/23 07:28 Dose: Not Given Documented By: TITI Non-Admin Reason: IV Running Vitamin D (Cholecalciferol (Vitamin D3) 25 Mcg Tablet) 25 mcg PO DAILY [facility] Last Admin: 02/11/23 08:49 Dose: 25 mcg Documented By: TITI Labs 02/11/23 06:15 02/11/23 06:15 Labs: Laboratory Results - last 24 hr 02/10/23 02/10/23 02/10/23 12:15 12:17 13:23 MCV 94.5 MCH 31.2 MCHC 33.0 RDW 13.8 Plt Count 225 MPV 10.1 Immature Gran % (Auto) Cancelled Neut % (Auto) Cancelled Lymph % (Auto) Cancelled Robertson % (Auto) Cancelled Eos % (Auto) Cancelled Baso % (Auto) Cancelled Lymph # (Auto) Cancelled Robertson # (Auto) Cancelled Eos # (Auto) Cancelled Baso # (Auto) Cancelled Abs Immat Gran (auto) Cancelled Absolute Neuts (auto) Cancelled Absolute Nucleated RBC 0.000 Nucleated RBC % (auto) 0.0 Neutrophils % (Manual) 78 H Band Neutrophils % 19 H Lymphocytes % (Manual) 1 L Monocytes % (Manual) 2 Abs Neuts (Manual) 20.5 H Lymphocytes # (Manual) 0.2 L Monocytes # (Manual) 0.4 Toxic Vacuolation PRESENT Platelet Estimate NORMAL Plt Morphology Comment NORMAL RBC Morphology NORMAL Smear Path Review SEE NOTE VBG pH 7.38 VBG pCO2 36 VBG pO2 59 VBG HCO3 21 L VBG O2 Saturation 81.0 VBG Base Excess -2.5 Anion Gap 14 Estim Creat Clear Calc 39.4 Estimated GFR 43 Random Glucose 199 H Lactic Acid 1.5 Calcium 9.3 Magnesium 1.8 Total Bilirubin 0.8 Direct Bilirubin 0.4 AST 33 H ALT 17 Alkaline Phosphatase 91 Ammonia 27 Total Protein 7.1 Albumin 3.8 Urine Color Urine Appearance Urine pH Ur Specific [place] Urine Protein Urine Glucose (UA) Urine Ketones Urine Blood Urine Nitrite Ur Leukocyte Esterase Urine RBC Urine WBC Ur Squamous Epith Cells Urine Bacteria Hyaline Casts Influenza Type A (PCR) NEGATIVE Influenza Type B (PCR) NEGATIVE RSV RNA Qual (PCR) NEGATIVE SARS-CoV-2 RNA (RT-PCR) NEGATIVE 02/10/23 02/11/23 13:35 06:15 MCV 97.2 MCH 31.2 MCHC 32.1 RDW 14.4 Plt Count 170 MPV 10.6 Immature Gran % (Auto) Neut % (Auto) Lymph % (Auto) Robertson % (Auto) Eos % (Auto) Baso % (Auto) Lymph # (Auto) Robertson # (Auto) Eos # (Auto) Baso # (Auto) Abs Immat Gran (auto) Absolute Neuts (auto) Absolute Nucleated RBC 0.000 Nucleated RBC % (auto) 0.0 Neutrophils % (Manual) Band Neutrophils % Lymphocytes % (Manual) Monocytes % (Manual) Abs Neuts (Manual) Lymphocytes # (Manual) Monocytes # (Manual) Toxic Vacuolation Platelet Estimate Plt Morphology Comment RBC Morphology Smear Path Review VBG pH VBG pCO2 VBG pO2 VBG HCO3 VBG O2 Saturation VBG Base Excess Anion Gap 15 Estim Creat Clear Calc 33.5 Estimated GFR 36 Random Glucose 125 H Lactic Acid Calcium 8.5 D Magnesium Total Bilirubin 0.5 Direct Bilirubin AST 24 ALT 18 Alkaline Phosphatase 85 Ammonia Total Protein 6.3 L Albumin 3.3 L Urine Color Dark Yellow Urine Appearance Turbid Urine pH 7.5 Ur Specific [place] 1.020 Urine Protein 100 (2+) H Urine Glucose (UA) Negative Urine Ketones Trace Urine Blood Moderate (2+) H Urine Nitrite Positive H Ur Leukocyte Esterase Large (3+) H Urine RBC >20 H Urine WBC >50 H Ur Squamous Epith Cells 11-20 Urine Bacteria 4+ Hyaline Casts 6-10 Influenza Type A (PCR) Influenza Type B (PCR) RSV RNA Qual (PCR) SARS-CoV-2 RNA (RT-PCR) Microbiology Microbiology Results: Microbiology 02/10/23 13:22 Blood Culture - Preliminary Blood - Arterial Prelim: GNR Gram Stain only 02/10/23 13:23 Blood Culture - Preliminary Blood - Arterial Prelim: GNR Gram Stain only Assessment and Plan (1) Sepsis: Status: Acute Plan d2 83yo F with hx CVA on apixaban, CARON not on CPAP, and COPD not on home oxygen presenting with 2-3d of lightheadedness, weakness, vomiting, and urinary discomfort found to be confused and septic due to UTI, GNR bacteremia acute encephalopathy due to sepsis due to UTI and GNR bacteremia - continue IV ceftriaxone [increase to 2g q24h], follow blood + urine cultures CARYN, prerenal - give NS bolus and increase fluid rate, change to LR due to hyperchloremic acidosis hypoK - repleted COPD not in acute exacerbation - continue prn albuterol, ICS/LABA hx CVA - continue apixaban, atorvastatin anxiety - continue sertraline VTE ppx - apixaban dispo - anticipate eventual return to [facility] In my clinical judgment, the patient requires continued inpatient hospitalization for the following reasons: IV ABX, IV fluids Time Spent With Patient Time: Total time managing care of this patient today ___45_ minutes. Quality Stroke Does the patient have a stroke diagnosis?: No VTE Prior VTE?: No VTE Risk Level:: Medical - moderate - high VTE Device Contraindication: N/A - Device Ordered VTE Drug Contraindication: N/A - Med Ordered
[2023-02-11] MEDS: Lactated Ringers 1,000 ML 150 ML IVCONT ×2 (13:14→22:09)
[2023-02-11] MEDS: cefTRIAXone sodium 2 GM in 0.9 % Sodium Chloride 50 ML IV (13:21)
--- NOTE | 2023-02-11 15:31 | HO.WOUND ---
Wound Consult: Initial 83yr old female admitted to [facility] on 02/10/23 15:23 - See progress notes and H&P for detailed history. See Note / Report from Dr. Dean from 02/10/23 with I&D details. Right Labia Major Etiology: I&D Site for Hematoma Measurements: 0.5cm x 0.2cm Not probed for depth Wound Bed: Dry red stable clot observed Drainage / Odor: small amount of serosanguinous - no active oozing noted Edges: ?Well defined incision Iris wound: ?Intact moist pink tissue - Palpable induration at the site, warmth WNL noted, No observable erythema noted - pt reports mild discomfort when assessed Goals of Treatment: ?Protect from friction and trauma - do not use Purewick - Per Dr. Jimmy Dean no dressing needed as long as no active bleeding is occurring. No topical recommendations needed at this time. Defer to Dr. Jimmy Dean. Reconsult wound care team for wound deterioration or wound changes.
[2023-02-11] MEDS: Atorvastatin Calcium 40 MG TABLET PO (22:06)
[2023-02-11] MEDS: Acetaminophen 325 MG TABLET 650 MG PO (22:07)
[2023-02-12] VITALS (9 sets, daily range): BP systolic 98–156; BP diastolic 52–75; PULSE 65–149; RESP 18–20; TEMP 36.1–36.6; O2SAT 90–95
--- NOTE | 2023-02-12 | ECG_ITS ---
Test Reason : tachycardia Blood Pressure : / mmHG Vent. Rate : 136 BPM Atrial Rate : 000 BPM P-R Int : 000 ms QRS Dur : 096 ms QT Int : 308 ms P-R-T Axes : 000 -18 027 degrees QTc Int : 463 ms Atrial fibrillation with rapid ventricular response Minimal voltage criteria for LVH, may be normal variant ( R in aVL ) Abnormal ECG When compared with ECG of 10-FEB-2023 11:33, Atrial fibrillation has replaced Sinus rhythm Vent. rate has increased BY 46 BPM Referred By: Rich Brito Electronically Signed By:SHAYY DERAS MD
[2023-02-12] MEDS: Lactated Ringers 1,000 ML 150 ML IVCONT (05:06)
--- NOTE | 2023-02-12 05:19 | PM.EVENT ---
Event Note Date of Service: 02/12/23 Event Note: Nurse reported tachycardia. EKG revealed AFib with RVR, ?new onset. Noted patient on Eliquis at home which is being held due to the labial hematoma. Will obtain TSH and consult Cardiology. Administering IV diltiazem Time Spent With Patient Time: Total time managing care of this patient today ____ minutes.
[2023-02-12] MEDS: dilTIAZem HCL 50 MG/10 ML VIAL 15 MG IVPUSH (05:27)
--- NOTE | 2023-02-12 05:34 | PC.NURSE ---
Around 0500, patient heartrate sustaining in the 140s, touching into the 170s nonsustained. pt asymptomatic. vitals obtained, otherwise WNL, Dr. Brito notified. EKG obtained showing afib with RVR in the 130s. Pt already on Eliquis for h/o of CVA but on hold for hematoma of labia this admission. IVP cardizem 15mg ordered and administered. HR now 118-129 bpm. Additional dose of 20 mg IVP ordered per MD. cariology consult placed. labs ordered.
[2023-02-12] MEDS: dilTIAZem HCL 50 MG/10 ML VIAL 20 MG IVPUSH (05:45)
[2023-02-12] MEDS: Montelukast Sodium 10 MG TABLET PO (07:53)
[2023-02-12] MEDS: Sertraline HCL 100 MG TABLET PO ×2 (07:53→20:30)
[2023-02-12] MEDS: Meclizine HCl 25 MG TABLET PO ×2 (07:53→20:31)
[2023-02-12] MEDS: Docusate Sodium 100 MG CAPSULE PO ×2 (07:53→20:31)
[2023-02-12] MEDS: Cholecalciferol (Vitamin D3) 25 MCG TABLET PO (07:53)
[2023-02-12] MEDS: 0.9 % Sodium Chloride Flush 3 ML SYRINGE IVFLUSH ×2 (07:54→14:41)
[2023-02-12 08:15] LABS: Hematocrit 31.9 % (37.0-47.0); Hemoglobin 10.6 g/dl (12.0-16.0); Mean Corpuscular HGB Conc 33.2 g/dl (31.0-35.0); Mean Corpuscular Hemoglobin 31.7 pg (27.0-33.0); Mean Corpuscular Volume 95.5 fL (80.0-98.0); Platelet Count 162 X10*3/uL (160-400); Red Blood Count 3.34 X10*6/uL (4.20-5.50); Red Cell Distribution Width 14.6 % (11.0-16.0); White Blood Count 18.9 X10*3/uL (4.8-10.8)
[2023-02-12 08:44] LABS: Anion Gap 13 (12-20); Blood Urea Nitrogen 27 mg/dL (9-16); Calcium 8.9 mg/dL (8.4-10.2); Carbon Dioxide 20 mmol/L (22-29); Chloride 116 mmol/L (96-108); Creatinine Clr Calc Pharmacy 41.8; Estimated Glomerular Filt Rate 46; Glucose Random 92 mg/dL (60-115); Magnesium 1.9 mg/dL (1.6-2.6); Potassium 3.8 mmol/L (3.3-5.1); Sodium 145 mmol/L (135-145)
[2023-02-12] MEDS: Fluticasone/Vilanterol 100/25 BLST.W.DEV 1 PUFF INHALE (08:53)
[2023-02-12 08:55] LABS: Band Neutrophils Percent 7 % (3-5); Lymphocytes Absolute Manual 0.8 X10*3/uL (1.2-4.9); Lymphocytes Percent Manual 4 % (20-40); Neutrophils Absolute Manual 18.1 X10*3/uL (2.0-8.3); Neutrophils Percent Manual 89 % (45-73)
[2023-02-12 08:57] LABS: Acanthocytes 1+ (0-2) /OIF; Burr Cells 1+ (0-2) /OIF; Dohle Bodies PRESENT; Platelet Estimate NORMAL (NORMAL); Platelet Morphology Comment NORMAL; RBC Morphology NOTED
[2023-02-12 08:58] LABS: Thyroid Stimulating Hormone 1.43 uIU/mL (0.32-4.0)
[2023-02-12] MEDS: Apixaban 5 MG TABLET PO ×2 (09:45→20:31)
[2023-02-12] MEDS: Furosemide 20 MG/2 ML VIAL IVPUSH (11:00)
--- NOTE | 2023-02-12 12:20 | PM.CNCAR ---
History of Present Illness History of Present Illness Date of Service: 02/12/23 Requesting physician: Thania Forrester Chief complaint: sepsis due to UTI Narrative: [age] female who have been asked to see for atrial fibrillation. She is presenting with urinary tract infection. She has known history of atrial fibrillation and was on apixaban. Apparently a developed atrial fibrillation with rapid ventricular response and is back in sinus rhythm. She is complaining of some shortness of breath and wheezing. She does not have any significant lung issues by her report and does not wheeze usually. She was getting IV fluids. Clinically appears to be volume overloaded. [facility] Past Medical History Medical History CARON (obstructive sleep apnea) COPD (chronic obstructive pulmonary disease) Anxiety disorder History of stroke Social History Social History Alcohol intake: former Patient Tobacco Use Status: Former Tobacco user Advance Directives Date on File: 02/10/23 service: No Meds Allergies Allergy/AdvReac Type Severity Reaction Status Date / Time No Known Allergies Allergy Unverified 01/17/20 19:45 [No Known Allergies*] Active Medications: Current Medications Acetaminophen (Acetaminophen 325 Mg Tablet) 650 mg PO Q6H PRN PRN Reason: Pain, Mild (Pain Scale 1-3) Last Admin: 02/11/23 22:07 Dose: 650 mg Albuterol Sulfate (Albuterol Sulfate 90 Mcg 8 Gm Inhaler) 2 puff INHALE Q4H PRN PRN Reason: sob or Wheezing Apixaban (Apixaban 5 Mg Tablet) 5 mg PO BID [facility] Last Admin: 02/12/23 09:45 Dose: 5 mg Atorvastatin Calcium (Atorvastatin Calcium 40 Mg Tablet) 40 mg PO BEDTIME [facility] Last Admin: 02/11/23 22:06 Dose: 40 mg Docusate Sodium (Docusate Sodium 100 Mg Capsule) 100 mg PO BID [facility] Last Admin: 02/12/23 07:53 Dose: 100 mg Fluticasone/Vilanterol (Fluticasone/Vilanterol 100/25 Blst.W.Dev) 1 puff INHALE RDAILY [facility] Last Admin: 02/12/23 08:53 Dose: 1 puff Furosemide (Furosemide 20 Mg/2 Ml Vial) 20 mg IVPUSH DAILY [facility]; Protocol Last Admin: 02/12/23 11:00 Dose: 20 mg Ceftriaxone Sodium 2 gm/ (Sodium Chloride) 50 mls @ 100 mls/hr IV Q24H [facility] Last Infusion: 02/11/23 14:41 Dose: Infused Meclizine HCl (Meclizine Hcl 25 Mg Tablet) 25 mg PO BID [facility] Last Admin: 02/12/23 07:53 Dose: 25 mg Montelukast Sodium (Montelukast Sodium 10 Mg Tablet) 10 mg PO DAILY [facility] Last Admin: 02/12/23 07:53 Dose: 10 mg Ondansetron HCl (Ondansetron Hcl 4 Mg/2 Ml Vial) 4 mg IVPUSH Q8H PRN PRN Reason: Nausea and Vomiting Last Admin: 02/10/23 21:48 Dose: 4 mg Sertraline HCl (Sertraline Hcl 100 Mg Tablet) 100 mg PO BID [facility] Last Admin: 02/12/23 07:53 Dose: 100 mg Sodium Chloride (0.9 % Sodium Chloride Flush 3 Ml Syringe) 3 ml IVFLUSH QSHIFT [facility] Last Admin: 02/12/23 07:54 Dose: 3 ml Vitamin D (Cholecalciferol (Vitamin D3) 25 Mcg Tablet) 25 mcg PO DAILY [facility] Last Admin: 02/12/23 07:53 Dose: 25 mcg Home Medications Medication Instructions Recorded Confirmed Last Taken Type albuterol sulfate 90 mcg/actuation 2 puff inhalation Q4-6H PRN sob or 02/10/23 02/10/23 Unknown History aerosol inhaler Wheezing apixaban 5 mg tablet (Eliquis) 5 mg PO BID 02/10/23 02/10/23 Unknown History atorvastatin 40 mg tablet 40 mg PO BEDTIME 02/10/23 02/10/23 Unknown History cholecalciferol (vitamin D3) 25 25 mcg PO DAILY 02/10/23 02/10/23 Unknown History mcg (1,000 unit) tablet docusate sodium 100 mg tablet 100 mg PO BID 02/10/23 02/10/23 Unknown History fluticasone propionate 45 2 puff inhalation BID 02/10/23 02/10/23 Unknown History mcg-salmeterol 21 mcg/actuation HFA inhaler (Advair HFA) meclizine 25 mg tablet 25 mg PO BID 02/10/23 02/10/23 Unknown History montelukast 10 mg tablet 10 mg PO DAILY 02/10/23 02/10/23 Unknown History ondansetron 4 mg disintegrating 4 mg PO Q6H PRN Nausea 02/10/23 02/10/23 Unknown History tablet sertraline 100 mg tablet 100 mg PO BID 02/10/23 02/10/23 Unknown History Physical Exam Vital Signs: Vital Signs: Last Vital Signs Temp 97.0 F 02/12/23 11:02 Pulse 72 02/12/23 11:02 Resp 18 02/12/23 11:02 BP 120/59 L 02/12/23 11:02 Pulse Ox 95 02/12/23 11:02 O2 Del Method Nasal Cannula 02/12/23 11:02 O2 Flow Rate 3 02/12/23 11:02 BMI result Body Mass Index 34.9 GENERAL APPEARANCE: Dyspnea, wheezing. NECK: no carotid bruit, + jugular venous distention. SKIN: no suspicious lesions, warm and dry. HEART: no murmurs, regular rate and rhythm. LUNGS: Mild expiratory wheezes. ABDOMEN: soft, nontender. EXTREMITIES: no edema. PERIPHERAL PULSES: equal. NEUROLOGIC: No gross deficits, AAO X 3 Objective Labs and Meds 02/12/23 07:55 02/12/23 07:55 Lab results: Laboratory Results - last 24 hr 02/12/23 02/12/23 02/12/23 07:55 07:55 07:55 WBC 18.9 H RBC 3.34 L Hgb 10.6 L Hct 31.9 L MCV 95.5 MCH 31.7 MCHC 33.2 RDW 14.6 Plt Count 162 MPV 11.0 Immature Gran % (Auto) Cancelled Neut % (Auto) Cancelled Lymph % (Auto) Cancelled [place] % (Auto) Cancelled Eos % (Auto) Cancelled Baso % (Auto) Cancelled Lymph # (Auto) Cancelled [place] # (Auto) Cancelled Eos # (Auto) Cancelled Baso # (Auto) Cancelled Abs Immat Gran (auto) Cancelled Absolute Neuts (auto) Cancelled Absolute Nucleated RBC 0.000 Nucleated RBC % (auto) 0.0 Neutrophils % (Manual) 89 H Band Neutrophils % 7 H Lymphocytes % (Manual) 4 L Abs Neuts (Manual) 18.1 H Lymphocytes # (Manual) 0.8 L Dohle Bodies PRESENT Platelet Estimate NORMAL Plt Morphology Comment NORMAL RBC Morphology NOTED Alireza Cells 1+ (0-2) Acanthocytes (Spur) 1+ (0-2) Sodium Cancelled 145 Potassium Cancelled 3.8 Chloride Cancelled Carbon Dioxide Anion Gap BUN Creatinine Estim Creat Clear Calc Estimated GFR Random Glucose Calcium Magnesium TSH 02/12/23 02/12/23 02/12/23 07:55 07:55 07:55 WBC RBC Hgb Hct MCV MCH MCHC RDW Plt Count MPV Immature Gran % (Auto) Neut % (Auto) Lymph % (Auto) [place] % (Auto) Eos % (Auto) Baso % (Auto) Lymph # (Auto) [place] # (Auto) Eos # (Auto) Baso # (Auto) Abs Immat Gran (auto) Absolute Neuts (auto) Absolute Nucleated RBC Nucleated RBC % (auto) Neutrophils % (Manual) Band Neutrophils % Lymphocytes % (Manual) Abs Neuts (Manual) Lymphocytes # (Manual) Dohle Bodies Platelet Estimate Plt Morphology Comment RBC Morphology [place] Cells Acanthocytes (Spur) Sodium Potassium Chloride 116 H Carbon Dioxide Cancelled 20 L Anion Gap Cancelled 13 BUN Cancelled Creatinine Estim Creat Clear Calc Estimated GFR Random Glucose Calcium Magnesium TSH 02/12/23 02/12/23 02/12/23 07:55 07:55 07:55 WBC RBC Hgb Hct MCV MCH MCHC RDW Plt Count MPV Immature Gran % (Auto) Neut % (Auto) Lymph % (Auto) [place] % (Auto) Eos % (Auto) Baso % (Auto) Lymph # (Auto) [place] # (Auto) Eos # (Auto) Baso # (Auto) Abs Immat Gran (auto) Absolute Neuts (auto) Absolute Nucleated RBC Nucleated RBC % (auto) Neutrophils % (Manual) Band Neutrophils % Lymphocytes % (Manual) Abs Neuts (Manual) Lymphocytes # (Manual) Dohle Bodies Platelet Estimate Plt Morphology Comment RBC Morphology Alireza Cells Acanthocytes (Spur) Sodium Potassium Chloride Carbon Dioxide Anion Gap BUN 27 H Creatinine Cancelled 1.12 Estim Creat Clear Calc Cancelled 41.8 Estimated GFR Cancelled Random Glucose Calcium Magnesium TSH 02/12/23 02/12/23 02/12/23 07:55 07:55 07:55 WBC RBC Hgb Hct MCV MCH MCHC RDW Plt Count MPV Immature Gran % (Auto) Neut % (Auto) Lymph % (Auto) Luna % (Auto) Eos % (Auto) Baso % (Auto) Lymph # (Auto) Luna # (Auto) Eos # (Auto) Baso # (Auto) Abs Immat Gran (auto) Absolute Neuts (auto) Absolute Nucleated RBC Nucleated RBC % (auto) Neutrophils % (Manual) Band Neutrophils % Lymphocytes % (Manual) Abs Neuts (Manual) Lymphocytes # (Manual) Dohle Bodies Platelet Estimate Plt Morphology Comment RBC Morphology Alireza Cells Acanthocytes (Spur) Sodium Potassium Chloride Carbon Dioxide Anion Gap BUN Creatinine Estim Creat Clear Calc Estimated GFR 46 Random Glucose Cancelled 92 Calcium Cancelled 8.9 Magnesium 1.9 TSH Cancelled 02/12/23 07:55 WBC RBC Hgb Hct MCV MCH MCHC RDW Plt Count MPV Immature Gran % (Auto) Neut % (Auto) Lymph % (Auto) Luna % (Auto) Eos % (Auto) Baso % (Auto) Lymph # (Auto) Luna # (Auto) Eos # (Auto) Baso # (Auto) Abs Immat Gran (auto) Absolute Neuts (auto) Absolute Nucleated RBC Nucleated RBC % (auto) Neutrophils % (Manual) Band Neutrophils % Lymphocytes % (Manual) Abs Neuts (Manual) Lymphocytes # (Manual) Dohle Bodies Platelet Estimate Plt Morphology Comment RBC Morphology [place] Cells Acanthocytes (Spur) Sodium Potassium Chloride Carbon Dioxide Anion Gap BUN Creatinine Estim Creat Clear Calc Estimated GFR Random Glucose Calcium Magnesium TSH 1.43 Assessment and Plan (1) Sepsis: Qualifiers: Sepsis acute organ dysfunction status: unspecified Sepsis type: sepsis due to unspecified organism Qualified Code(s): A41.9 - Sepsis, unspecified organism Status: Acute (2) PAF (paroxysmal atrial fibrillation): Status: Acute (3) Congestive heart failure: Status: Acute Plan [age] year female here for sepsis due to UTI. She was for his stated and developed atrial fibrillation with rapid ventricular response. She is back in sinus rhythm. She is wheezing and appears to be short of breath. Clinically volume overloaded. Stop IV fluids. Give 20 mg IV Lasix. Currently apixaban is on hold due to perineal hematoma. She has history of stroke and Eliquis should be resumed as soon as it safely can be. Thank you for allowing me to participate in the care of your patient. Please feel free to contact me if you have any questions. Time Spent With Patient Time: Total time managing care of this patient today ____ minutes. Procedures Date of Service Date of Service: 02/12/23
[2023-02-12] MEDS: ondansetron HCL 4 MG/2 ML VIAL IVPUSH (12:22)
[2023-02-12] MEDS: cefTRIAXone sodium 2 GM in 0.9 % Sodium Chloride 50 ML IV (12:25)
--- NOTE | 2023-02-12 13:52 | HO.PM.IMPN ---
Subjective Subjective Date of Service: 02/12/23 Interval History: went in to AF/RVR this AM but then converted spontaneously no fever feels weak some dyspnea Review of Systems Review of Systems: Yes all other systems are reviewed and are negative Physical Exam Vital Signs: Vital Signs: Last Vital Signs Temp 97.0 F 02/12/23 11:02 Pulse 72 02/12/23 11:02 Resp 18 02/12/23 11:02 BP 120/59 L 02/12/23 11:02 Pulse Ox 95 02/12/23 11:02 O2 Del Method Nasal Cannula 02/12/23 11:02 O2 Flow Rate 3 02/12/23 11:02 BMI result Body Mass Index 34.9 Gen: ill-appearing, no respiratory distress HEENT: sclera anicteric, moist mucus membranes Neck: supple Lungs: diminished bilaterally Heart: regular rate and rhythm, no murmurs Abd: soft, non-tender, non-distended Ext: no edema Skin: warm/well-perfused Neuro: alert and oriented x3, 4/5 strength in all extremities except 3/5 in RLE Psych: appropriate affect Objective Data Active Medications Acetaminophen (Acetaminophen 325 Mg Tablet) 650 mg PO Q6H PRN PRN Reason: Pain, Mild (Pain Scale 1-3) Last Admin: 02/11/23 22:07 Dose: 650 mg Documented By: MK Albuterol Sulfate (Albuterol Sulfate 90 Mcg 8 Gm Inhaler) 2 puff INHALE Q4H PRN PRN Reason: sob or Wheezing Apixaban (Apixaban 5 Mg Tablet) 5 mg PO BID [facility] Last Admin: 02/12/23 09:45 Dose: 5 mg Documented By: ANA MARIA Atorvastatin Calcium (Atorvastatin Calcium 40 Mg Tablet) 40 mg PO BEDTIME [facility] Last Admin: 02/11/23 22:06 Dose: 40 mg Documented By: MK Docusate Sodium (Docusate Sodium 100 Mg Capsule) 100 mg PO BID [facility] Last Admin: 02/12/23 07:53 Dose: 100 mg Documented By: ANA MARIA Fluticasone/Vilanterol (Fluticasone/Vilanterol 100/25 Blst.W.Dev) 1 puff INHALE RDAILY [facility] Last Admin: 02/12/23 08:53 Dose: 1 puff Documented By: TERESA Furosemide (Furosemide 20 Mg/2 Ml Vial) 20 mg IVPUSH DAILY [facility]; Protocol Last Admin: 02/12/23 11:00 Dose: 20 mg Documented By: ANA MARIA Ceftriaxone Sodium 2 gm/ (Sodium Chloride) 50 mls @ 100 mls/hr IV Q24H [facility] Last Infusion: 02/12/23 13:02 Dose: Infused Documented By: ANA MARIA Meclizine HCl (Meclizine Hcl 25 Mg Tablet) 25 mg PO BID [facility] Last Admin: 02/12/23 07:53 Dose: 25 mg Documented By: ANA MARIA Montelukast Sodium (Montelukast Sodium 10 Mg Tablet) 10 mg PO DAILY [facility] Last Admin: 02/12/23 07:53 Dose: 10 mg Documented By: ANA MARIA Ondansetron HCl (Ondansetron Hcl 4 Mg/2 Ml Vial) 4 mg IVPUSH Q8H PRN PRN Reason: Nausea and Vomiting Last Admin: 02/12/23 12:22 Dose: 4 mg Documented By: ANA MARIA Sertraline HCl (Sertraline Hcl 100 Mg Tablet) 100 mg PO BID [facility] Last Admin: 02/12/23 07:53 Dose: 100 mg Documented By: ANA MARIA Sodium Chloride (0.9 % Sodium Chloride Flush 3 Ml Syringe) 3 ml IVFLUSH QSHIFT [facility] Last Admin: 02/12/23 07:54 Dose: 3 ml Documented By: ANA MARIA Vitamin D (Cholecalciferol (Vitamin D3) 25 Mcg Tablet) 25 mcg PO DAILY [facility] Last Admin: 02/12/23 07:53 Dose: 25 mcg Documented By: ANA MARIA Labs 02/12/23 07:55 02/12/23 07:55 Labs: Laboratory Results - last 24 hr 02/12/23 02/12/23 02/12/23 07:55 07:55 07:55 MCV 95.5 MCH 31.7 MCHC 33.2 RDW 14.6 Plt Count 162 MPV 11.0 Immature Gran % (Auto) Cancelled Neut % (Auto) Cancelled Lymph % (Auto) Cancelled [place] % (Auto) Cancelled Eos % (Auto) Cancelled Baso % (Auto) Cancelled Lymph # (Auto) Cancelled [place] # (Auto) Cancelled Eos # (Auto) Cancelled Baso # (Auto) Cancelled Abs Immat Gran (auto) Cancelled Absolute Neuts (auto) Cancelled Absolute Nucleated RBC 0.000 Nucleated RBC % (auto) 0.0 Neutrophils % (Manual) 89 H Band Neutrophils % 7 H Lymphocytes % (Manual) 4 L Abs Neuts (Manual) 18.1 H Lymphocytes # (Manual) 0.8 L Dohle Bodies PRESENT Platelet Estimate NORMAL Plt Morphology Comment NORMAL RBC Morphology NOTED Alireza Cells 1+ (0-2) Acanthocytes (Spur) 1+ (0-2) Anion Gap Cancelled 13 Estim Creat Clear Calc Cancelled 41.8 Estimated GFR Cancelled Random Glucose Calcium Magnesium TSH 02/12/23 02/12/23 02/12/23 07:55 07:55 07:55 MCV MCH MCHC RDW Plt Count MPV Immature Gran % (Auto) Neut % (Auto) Lymph % (Auto) [place] % (Auto) Eos % (Auto) Baso % (Auto) Lymph # (Auto) [place] # (Auto) Eos # (Auto) Baso # (Auto) Abs Immat Gran (auto) Absolute Neuts (auto) Absolute Nucleated RBC Nucleated RBC % (auto) Neutrophils % (Manual) Band Neutrophils % Lymphocytes % (Manual) Abs Neuts (Manual) Lymphocytes # (Manual) Dohle Bodies Platelet Estimate Plt Morphology Comment RBC Morphology [place] Cells Acanthocytes (Spur) Anion Gap Estim Creat Clear Calc Estimated GFR 46 Random Glucose Cancelled 92 Calcium Cancelled 8.9 Magnesium 1.9 TSH Cancelled 02/12/23 07:55 MCV MCH MCHC RDW Plt Count MPV Immature Gran % (Auto) Neut % (Auto) Lymph % (Auto) [place] % (Auto) Eos % (Auto) Baso % (Auto) Lymph # (Auto) [place] # (Auto) Eos # (Auto) Baso # (Auto) Abs Immat Gran (auto) Absolute Neuts (auto) Absolute Nucleated RBC Nucleated RBC % (auto) Neutrophils % (Manual) Band Neutrophils % Lymphocytes % (Manual) Abs Neuts (Manual) Lymphocytes # (Manual) Dohle Bodies Platelet Estimate Plt Morphology Comment RBC Morphology Alireza Cells Acanthocytes (Spur) Anion Gap Estim Creat Clear Calc Estimated GFR Random Glucose Calcium Magnesium TSH 1.43 Microbiology Microbiology Results: Microbiology 02/10/23 Unknown Urine Culture - Preliminary Urine clean catch - Urine lynch top Gram negative agustín Assessment and Plan (1) Sepsis: Status: Acute Plan d3 83yo F with hx CVA on apixaban, CARON not on CPAP, and COPD not on home oxygen presenting with 2-3d of lightheadedness, weakness, vomiting, and urinary discomfort found to be confused and septic due to UTI, GNR bacteremia acute encephalopathy due to sepsis due to UTI and GNR bacteremia - continue IV ceftriaxone [increased to 2g q24h] d3, follow speciation and susceptibilities CARYN, prerenal - resolving and now fluid-overloaded; stop IV fluids and give furosemide CHF exacerbation, unknown EF - furosemide diuresis, monitor lytes + I/O, TTE AF/RVR - now in NSR. on apixaban for anticoaglulation. TTE. hypoK - repleted COPD not in acute exacerbation - continue prn albuterol, ICS/LABA hx CVA - continue apixaban, atorvastatin anxiety - continue sertraline VTE ppx - apixaban dispo - anticipate eventual return to [facility] In my clinical judgment, the patient requires continued inpatient hospitalization for the following reasons: IV ABX Time Spent With Patient Time: Total time managing care of this patient today __35__ minutes. Quality Stroke Does the patient have a stroke diagnosis?: No VTE Prior VTE?: No VTE Risk Level:: Medical - moderate - high VTE Device Contraindication: N/A - Device Ordered VTE Drug Contraindication: N/A - Med Ordered
[2023-02-12] MEDS: Atorvastatin Calcium 40 MG TABLET PO (20:30)
[2023-02-13] VITALS (7 sets, daily range): BP systolic 113–149; BP diastolic 60–88; PULSE 64–158; RESP 16–22; TEMP 36.4–37.3; O2SAT 91–94
[2023-02-13] MEDS: 0.9 % Sodium Chloride Flush 3 ML SYRINGE IVFLUSH ×3 (00:09→16:45)
--- NOTE | 2023-02-13 07:28 | ECG_ITS ---
Test Reason : svt Blood Pressure : / mmHG Vent. Rate : 079 BPM Atrial Rate : 079 BPM P-R Int : 154 ms QRS Dur : 102 ms QT Int : 406 ms P-R-T Axes : 027 -24 -01 degrees QTc Int : 465 ms Normal sinus rhythm Minimal voltage criteria for LVH, may be normal variant ( R in aVL ) Borderline ECG Normal sinus rhythm has replaced Atrial fibrillation Referred By: Thania Forrester Electronically Signed By:SHAYY DERAS MD
[2023-02-13 07:55] LABS: Hematocrit 32.7 % (37.0-47.0); Hemoglobin 10.9 g/dl (12.0-16.0); Mean Corpuscular HGB Conc 33.3 g/dl (31.0-35.0); Mean Corpuscular Hemoglobin 31.7 pg (27.0-33.0); Mean Corpuscular Volume 95.1 fL (80.0-98.0); Mean Platelet Volume 11.5 fL (9.4-12.3); Platelet Count 172 X10*3/uL (160-400); Red Blood Count 3.44 X10*6/uL (4.20-5.50); Red Cell Distribution Width 14.3 % (11.0-16.0); White Blood Count 21.3 X10*3/uL (4.8-10.8)
[2023-02-13] MEDS: Metoprolol Tartrate 25 MG TABLET PO ×2 (07:58→20:44)
[2023-02-13] MEDS: Docusate Sodium 100 MG CAPSULE PO ×2 (08:08→20:44)
[2023-02-13] MEDS: Meclizine HCl 25 MG TABLET PO ×2 (08:08→20:44)
[2023-02-13] MEDS: Apixaban 5 MG TABLET PO ×2 (08:08→20:44)
[2023-02-13] MEDS: Cholecalciferol (Vitamin D3) 25 MCG TABLET PO (08:08)
[2023-02-13] MEDS: Sertraline HCL 100 MG TABLET PO ×2 (08:08→20:44)
[2023-02-13] MEDS: Montelukast Sodium 10 MG TABLET PO (08:08)
[2023-02-13 08:12] LABS: Anion Gap 13 (12-20); Blood Urea Nitrogen 23 mg/dL (9-16); Calcium 9.1 mg/dL (8.4-10.2); Carbon Dioxide 22 mmol/L (22-29); Chloride 112 mmol/L (96-108); Estimated Glomerular Filt Rate 52; Glucose Random 118 mg/dL (60-115); Magnesium 1.9 mg/dL (1.6-2.6); Potassium 3.4 mmol/L (3.3-5.1); Sodium 144 mmol/L (135-145)
[2023-02-13] MEDS: Furosemide 20 MG/2 ML VIAL IVPUSH (08:17)
[2023-02-13 08:34] LABS: B Type Natriuretic Peptide 457 pg/mL (<100)
--- NOTE | 2023-02-13 11:12 | HO.PM.IMPN ---
Subjective Subjective Date of Service: 02/13/23 Interval History: Had a few episodes of SVT this AM that terminated with self-vagal manuevers No fever but still quite weak UCx and BCx growing stevens-sensitive E coli Review of Systems Review of Systems: Yes all other systems are reviewed and are negative Physical Exam Vital Signs: Vital Signs: Last Vital Signs Temp 99.1 F 02/13/23 07:57 Pulse 158 H 02/13/23 07:57 Resp 17 02/13/23 07:57 BP 134/88 02/13/23 07:57 Pulse Ox 94 02/13/23 07:57 O2 Del Method Nasal Cannula 02/13/23 07:57 O2 Flow Rate 3 02/13/23 07:57 BMI result Body Mass Index 34.9 Gen: weak but no acute distress HEENT: sclera anicteric, moist mucus membranes Neck: supple Lungs: diminished bilaterally Heart: regular rate and rhythm, no murmurs Abd: soft, non-tender, non-distended Ext: no edema Skin: warm/well-perfused Neuro: alert and oriented x3, 4/5 strength in all extremities except 3/5 in RLE Psych: appropriate affect Objective Data Active Medications Acetaminophen (Acetaminophen 325 Mg Tablet) 650 mg PO Q6H PRN PRN Reason: Pain, Mild (Pain Scale 1-3) Last Admin: 02/11/23 22:07 Dose: 650 mg Documented By: MK Albuterol Sulfate (Albuterol Sulfate 90 Mcg 8 Gm Inhaler) 2 puff INHALE Q4H PRN PRN Reason: sob or Wheezing Apixaban (Apixaban 5 Mg Tablet) 5 mg PO BID [facility] Last Admin: 02/13/23 08:08 Dose: 5 mg Documented By: DARRIN Atorvastatin Calcium (Atorvastatin Calcium 40 Mg Tablet) 40 mg PO BEDTIME [facility] Last Admin: 02/12/23 20:30 Dose: 40 mg Documented By: HANY Docusate Sodium (Docusate Sodium 100 Mg Capsule) 100 mg PO BID [facility] Last Admin: 02/13/23 08:08 Dose: 100 mg Documented By: DARRIN Fluticasone/Vilanterol (Fluticasone/Vilanterol 100/25 Blst.W.Dev) 1 puff INHALE RDAILY [facility] Last Admin: 02/13/23 07:42 Dose: Not Given Documented By: STARR Non-Admin Reason: See Note Furosemide (Furosemide 20 Mg/2 Ml Vial) 20 mg IVPUSH DAILY [facility]; Protocol Last Admin: 02/13/23 08:17 Dose: 20 mg Documented By: DARRIN Ceftriaxone Sodium 2 gm/ (Sodium Chloride) 50 mls @ 100 mls/hr IV Q24H [facility] Last Infusion: 02/12/23 13:02 Dose: Infused Documented By: ANA MARIA Meclizine HCl (Meclizine Hcl 25 Mg Tablet) 25 mg PO BID [facility] Last Admin: 02/13/23 08:08 Dose: 25 mg Documented By: DARRIN Metoprolol Tartrate (Metoprolol Tartrate 25 Mg Tablet) 25 mg PO BID [facility]; Protocol Last Admin: 02/13/23 07:58 Dose: 25 mg Documented By: DARRIN Montelukast Sodium (Montelukast Sodium 10 Mg Tablet) 10 mg PO DAILY [facility] Last Admin: 02/13/23 08:08 Dose: 10 mg Documented By: DARRIN Ondansetron HCl (Ondansetron Hcl 4 Mg/2 Ml Vial) 4 mg IVPUSH Q8H PRN PRN Reason: Nausea and Vomiting Last Admin: 02/12/23 12:22 Dose: 4 mg Documented By: ANA MARIA Sertraline HCl (Sertraline Hcl 100 Mg Tablet) 100 mg PO BID [facility] Last Admin: 02/13/23 08:08 Dose: 100 mg Documented By: DARRIN Sodium Chloride (0.9 % Sodium Chloride Flush 3 Ml Syringe) [facility] Last Admin: 02/13/23 08:14 Dose: 3 ml Documented By: DARRIN Vitamin D (Cholecalciferol (Vitamin D3) 25 Mcg Tablet) 25 mcg PO DAILY [facility] Last Admin: 02/13/23 08:08 Dose: 25 mcg Documented By: DARRIN Labs 02/13/23 07:14 02/13/23 07:14 Labs: Laboratory Results - last 24 hr 02/13/23 07:14 MCV 95.1 MCH 31.7 MCHC 33.3 RDW 14.3 Plt Count 172 MPV 11.5 Absolute Nucleated RBC 0.000 Nucleated RBC % (auto) 0.0 Anion Gap 13 Estim Creat Clear Calc 46.0 Estimated GFR 52 Random Glucose 118 H Calcium 9.1 Magnesium 1.9 B-Natriuretic Peptide 457 H Microbiology 02/10/23 13:22 Blood - Arterial Blood Culture - Final Escherichia coli 02/10/23 13:23 Blood - Arterial Blood Culture - Final Escherichia coli 02/10/23 Unknown Urine clean catch - Urine lynch top Urine Culture - Final Escherichia coli Microbiology Microbiology Results: Microbiology 02/10/23 13:22 Blood Culture - Final Blood - Arterial Escherichia coli 02/10/23 13:23 Blood Culture - Final Blood - Arterial Escherichia coli 02/10/23 Unknown Urine Culture - Final Urine clean catch - Urine lynch top Escherichia coli Assessment and Plan (1) Sepsis: Status: Acute Plan d4 83yo F with hx CVA on apixaban, CARON not on CPAP, and COPD not on home oxygen presenting with 2-3d of lightheadedness, weakness, vomiting, and urinary discomfort found to be confused and septic due to UTI, E coli bacteremia acute encephalopathy due to sepsis due to E coli UTI and bacteremia - continue IV ceftriaxone [increased to 2g q24h] d4, will need total 14d but can be completed with oral cephalosporin upon eventual discharge SVT - metoprolol, cardiology consult, TTE. AF/RVR - now in NSR. on apixaban for anticoaglulation. started metoprolol for rate control. TTE. CHF exacerbation, unknown EF - furosemide diuresis, monitor lytes + I/O, TTE CARYN, prerenal - given IV fluids, resolved and then fluid-overloaded; diuresing now hypoK - repleted COPD not in acute exacerbation - continue prn albuterol, ICS/LABA hx CVA - continue apixaban, atorvastatin anxiety - continue sertraline VTE ppx - apixaban dispo - anticipate eventual return to [facility] In my clinical judgment, the patient requires continued inpatient hospitalization for the following reasons: IV ABX, cardiac workup Time Spent With Patient Time: Total time managing care of this patient today ___50_ minutes. Quality Stroke Does the patient have a stroke diagnosis?: No VTE Prior VTE?: No VTE Risk Level:: Medical - moderate - high VTE Device Contraindication: N/A - Device Ordered VTE Drug Contraindication: N/A - Med Ordered
--- NOTE | 2023-02-13 12:23 | PC.NURSE ---
noc technician notified patient heart rate 160's in SVT at approximately 0715 on tele monitor. Arrived at the room @0716 to assess patient. Patient Axo to self place and time. Patient showing no signs of distress, patient states not signs of chest pain. suggested to patient to blow through straw to stimulate vagus response. No decrease in hear rate. [place] texted Dr. Forrester at 0719 about patient heart rate 160's. No reply called Rapid response @ 0720. 0722. Provide Mitzy and Lala at bed side and rapid response team. Ekg ordered to complete. Patient vitals 129/80. 160, 97.7, spo2 95% on room air. During assessment patient converted to Normal sinus rhythm with out support of medication at approximately 0735 Dr Forrester order 25 mg of Metoprolol to be given po. Second set of vitals, 129/80, 84,97.7 , 95% on room air. Metoprolol given at 0758 see medication
--- NOTE | 2023-02-13 12:51 | PM.PNCARD ---
Subjective Subjective Date of Service: 02/13/23 Interval history: Seen examined at bedside. She has been getting runs of SVT. Physical Exam Vital Signs: Last Vital Signs Temp 97.6 F 02/13/23 11:15 Pulse 64 02/13/23 11:15 Resp 18 02/13/23 11:15 BP 113/60 02/13/23 11:15 Pulse Ox 91 L 02/13/23 11:15 O2 Del Method Room Air 02/13/23 11:15 O2 Flow Rate 3 02/13/23 07:57 BMI result Body Mass Index 34.9 GENERAL APPEARANCE: Comfortable. NECK: no carotid bruit, no significant JVD. SKIN: no suspicious lesions, warm and dry. HEART: no murmurs, regular rate and rhythm. LUNGS: Clear to auscultation. ABDOMEN: soft, nontender. EXTREMITIES: no edema. PERIPHERAL PULSES: equal. NEUROLOGIC: No gross deficits, AAO X 3 Objective Labs and Meds 02/13/23 07:14 02/13/23 07:14 Lab results: Laboratory Results - last 24 hr 02/13/23 07:14 WBC 21.3 H RBC 3.44 L Hgb 10.9 L Hct 32.7 L MCV 95.1 MCH 31.7 MCHC 33.3 RDW 14.3 Plt Count 172 MPV 11.5 Absolute Nucleated RBC 0.000 Nucleated RBC % (auto) 0.0 Sodium 144 Potassium 3.4 Chloride 112 H Carbon Dioxide 22 Anion Gap 13 BUN 23 H Creatinine 1.02 Estim Creat Clear Calc 46.0 Estimated GFR 52 Random Glucose 118 H Calcium 9.1 Magnesium 1.9 B-Natriuretic Peptide 457 H Progress Note: A&P Assessment and plan (1) Congestive heart failure: Status: Acute (2) PAF (paroxysmal atrial fibrillation): Status: Acute (3) SVT (supraventricular tachycardia): Status: Acute Plan 83-year-old female with sepsis due to urinary tract infection and paroxysmal atrial fibrillation. She has been in sinus rhythm but has been getting runs of supraventricular tachycardia. Has been started on metoprolol 25 mg twice a day. Clinically appears to be euvolemic at this stage. I think she can be changed to 20 mg p.o. Lasix from tomorrow. If she has recurrent runs of SVT despite beta blockade then other option will be to try verapamil instead of metoprolol. She was off apixaban because of labial hematoma. Resume when it is safe to start Eliquis. Thank you for allowing me to participate in the care of your patient. Please feel free to contact me if you have any questions. Time Spent With Patient Time: Total time managing care of this patient today ____ minutes. Progress Note: Quality Stroke Does the patient have a stroke diagnosis?: No Procedures Date of Service Date of Service: 02/13/23
[2023-02-13] MEDS: cefTRIAXone sodium 2 GM in 0.9 % Sodium Chloride 50 ML IV (13:14)
[2023-02-13] MEDS: Atorvastatin Calcium 40 MG TABLET PO (20:44)
[2023-02-13] MEDS: Acetaminophen 325 MG TABLET 650 MG PO (20:48)
[2023-02-14] VITALS (8 sets, daily range): BP systolic 112–145; BP diastolic 57–73; PULSE 54–80; RESP 18–20; TEMP 36.2–37.5; O2SAT 92–95
[2023-02-14] MEDS: 0.9 % Sodium Chloride Flush 3 ML SYRINGE IVFLUSH ×3 (00:08→16:00)
[2023-02-14] MEDS: Fluticasone/Vilanterol 100/25 BLST.W.DEV 1 PUFF INHALE (07:53)
[2023-02-14 08:07] LABS: Hematocrit 33.4 % (37.0-47.0); Mean Corpuscular HGB Conc 32.9 g/dl (31.0-35.0); Mean Corpuscular Hemoglobin 30.7 pg (27.0-33.0); Mean Corpuscular Volume 93.3 fL (80.0-98.0); Mean Platelet Volume 10.9 fL (9.4-12.3); Platelet Count 205 X10*3/uL (160-400); Red Blood Count 3.58 X10*6/uL (4.20-5.50); Red Cell Distribution Width 13.8 % (11.0-16.0); White Blood Count 18.2 X10*3/uL (4.8-10.8)
[2023-02-14 08:25] LABS: B Type Natriuretic Peptide 257 pg/mL (<100)
[2023-02-14 08:56] LABS: Anion Gap 12 (12-20); Blood Urea Nitrogen 20 mg/dL (9-16); Calcium 8.9 mg/dL (8.4-10.2); Carbon Dioxide 27 mmol/L (22-29); Chloride 107 mmol/L (96-108); Creatinine Clr Calc Pharmacy 44.2; Estimated Glomerular Filt Rate 49; Glucose Random 112 mg/dL (60-115); Potassium 3.4 mmol/L (3.3-5.1); Sodium 143 mmol/L (135-145)
[2023-02-14] MEDS: Docusate Sodium 100 MG CAPSULE PO ×2 (08:59→20:07)
[2023-02-14] MEDS: Meclizine HCl 25 MG TABLET PO ×2 (08:59→20:07)
[2023-02-14] MEDS: Montelukast Sodium 10 MG TABLET PO (08:59)
[2023-02-14] MEDS: Apixaban 5 MG TABLET PO ×2 (09:00→20:07)
[2023-02-14] MEDS: Sertraline HCL 100 MG TABLET PO ×2 (09:00→20:07)
[2023-02-14] MEDS: Cholecalciferol (Vitamin D3) 25 MCG TABLET PO (09:00)
[2023-02-14] MEDS: Furosemide 20 MG/2 ML VIAL IVPUSH (09:00)
[2023-02-14] MEDS: Metoprolol Tartrate 25 MG TABLET PO (09:00)
--- NOTE | 2023-02-14 09:53 | P.PNIM_ITS ---
Subjective Subjective Date of Service: 02/14/23 Interval History: Intermittent episodes of SVT, self-terminating Denies fever, dyspnea, palpitations, or chest pain Review of Systems Review of Systems: Yes all other systems are reviewed and are negative Physical Exam 2 Vital Signs: Vital Signs: Last Vital Signs Temp 97.7 F 02/14/23 08:00 Pulse 64 02/14/23 08:00 Resp 20 02/14/23 08:00 BP 145/67 H 02/14/23 08:00 Pulse Ox 92 02/14/23 08:00 O2 Del Method Nasal Cannula 02/14/23 08:00 O2 Flow Rate 2 02/14/23 08:00 BMI result Body Mass Index 34.9 Gen: weak but no acute distress HEENT: sclera anicteric, moist mucus membranes Neck: supple Lungs: clear bilaterally Heart: regular rate and rhythm, no murmurs Abd: soft, non-tender, non-distended Ext: no edema Skin: warm/well-perfused Neuro: alert and oriented x3, 4/5 strength in all extremities except 3/5 in RLE Psych: appropriate affect Objective Data Active Medications Acetaminophen (Acetaminophen 325 Mg Tablet) 650 mg PO Q6H PRN PRN Reason: Pain, Mild (Pain Scale 1-3) Last Admin: 02/13/23 20:48 Dose: 650 mg Documented By: DEYANIRA Albuterol Sulfate (Albuterol Sulfate 90 Mcg 8 Gm Inhaler) 2 puff INHALE Q4H PRN PRN Reason: sob or Wheezing Apixaban (Apixaban 5 Mg Tablet) 5 mg PO BID [facility] Last Admin: 02/14/23 09:00 Dose: 5 mg Documented By: JOHN Atorvastatin Calcium (Atorvastatin Calcium 40 Mg Tablet) 40 mg PO BEDTIME [facility] Last Admin: 02/13/23 20:44 Dose: 40 mg Documented By: DEYANIRA Docusate Sodium (Docusate Sodium 100 Mg Capsule) 100 mg PO BID [facility] Last Admin: 02/14/23 08:59 Dose: 100 mg Documented By: JOHN Fluticasone/Vilanterol (Fluticasone/Vilanterol 100/25 Blst.W.Dev) 1 puff INHALE RDAILY [facility] Last Admin: 02/14/23 07:53 Dose: 1 puff Documented By: ERICH Furosemide (Furosemide 20 Mg/2 Ml Vial) 20 mg IVPUSH DAILY [facility]; Protocol Last Admin: 02/14/23 09:00 Dose: 20 mg Documented By: JOHN Ceftriaxone Sodium 2 gm/ (Sodium Chloride) 50 mls @ 100 mls/hr IV Q24H [facility] Last Infusion: 02/13/23 14:05 Dose: Infused Documented By: DARRIN Meclizine HCl (Meclizine Hcl 25 Mg Tablet) 25 mg PO BID [facility] Last Admin: 02/14/23 08:59 Dose: 25 mg Documented By: JOHN Metoprolol Succinate (Metoprolol Succinate Er 25 Mg Tab.Er.24h) 25 mg PO BID [facility]; Protocol Montelukast Sodium (Montelukast Sodium 10 Mg Tablet) 10 mg PO DAILY [facility] Last Admin: 02/14/23 08:59 Dose: 10 mg Documented By: JOHN Ondansetron HCl (Ondansetron Hcl 4 Mg/2 Ml Vial) 4 mg IVPUSH Q8H PRN PRN Reason: Nausea and Vomiting Last Admin: 02/12/23 12:22 Dose: 4 mg Documented By: ANA MARIA Sertraline HCl (Sertraline Hcl 100 Mg Tablet) 100 mg PO BID [facility] Last Admin: 02/14/23 09:00 Dose: 100 mg Documented By: JOHN Sodium Chloride (0.9 % Sodium Chloride Flush 3 Ml Syringe) 3 ml IVFLUSH QSHIFT [facility] Last Admin: 02/14/23 09:00 Dose: 3 ml Documented By: JOHN Vitamin D (Cholecalciferol (Vitamin D3) 25 Mcg Tablet) 25 mcg PO DAILY [facility] Last Admin: 02/14/23 09:00 Dose: 25 mcg Documented By: JOHN Labs 02/14/23 07:36 02/14/23 07:36 Labs: Laboratory Results - last 24 hr 02/14/23 07:36 MCV 93.3 MCH 30.7 MCHC 32.9 RDW 13.8 Plt Count 205 MPV 10.9 Absolute Nucleated RBC 0.000 Nucleated RBC % (auto) 0.0 Anion Gap 12 Estim Creat Clear Calc 44.2 Estimated GFR 49 Random Glucose 112 Calcium 8.9 Magnesium 2.0 B-Natriuretic Peptide 257 H Microbiology Microbiology Results: Microbiology 02/10/23 13:22 Blood Culture - Final Blood - Arterial Escherichia coli 02/10/23 13:23 Blood Culture - Final Blood - Arterial Escherichia coli 02/10/23 Unknown Urine Culture - Final Urine clean catch - Urine lynch top Escherichia coli Assessment and Plan (1) Sepsis: Status: Acute Plan d5 83yo F with hx CVA on apixaban, CARON not on CPAP, and COPD not on home oxygen presenting with 2-3d of lightheadedness, weakness, vomiting, and urinary discomfort found to be confused and septic due to E coli bacteremia/UTI acute encephalopathy due to sepsis due to E coli bacteremia/UTI - continue IV ceftriaxone [increased to 2g q24h] d5; will need total 14d but can be completed with oral cefuroxime upon eventual discharge SVT - change to metoprolol succinate. Cardiology following. TTE today AF/RVR - now in NSR. on apixaban for anticoaglulation. metoprolol succinate for rate control. TTE as above CHF exacerbation, unknown EF - continue IV furosemide diuresis, monitor lytes + I/O, TTE as above CARYN, prerenal - given IV fluids, resolved and then fluid-overloaded; diuresing now hypoK - repleted COPD not in acute exacerbation - continue prn albuterol, ICS/LABA hx CVA - continue apixaban, atorvastatin anxiety - continue sertraline VTE ppx - apixaban dispo - PT evaluation In my clinical judgment, the patient requires continued inpatient hospitalization for the following reasons: IV ABX, cardiac workup Time Spent With Patient Time: Total time managing care of this patient today _40___ minutes. Quality Stroke Does the patient have a stroke diagnosis?: No VTE Prior VTE?: No VTE Risk Level:: Medical - moderate - high VTE Device Contraindication: N/A - Device Ordered VTE Drug Contraindication: N/A - Med Ordered
--- NOTE | 2023-02-14 10:51 | MHC.CM.PN ---
EMR REVIEWED, PER HOSPITALIST PLAN FOR CONTINUED DIURESING AND MED CHANGES, PT EVAL PENDING AND CM RECEIVED CALL FROM [facility] PT HAS STR DAYS AVAILABLE, CM WILL FOLLOW UP W/CLAY [phone] ONCE PT EVAL COMPLETED, CM WILL CONT TO FOLLOW D/C NEEDS.
[2023-02-14] MEDS: cefTRIAXone sodium 2 GM in 0.9 % Sodium Chloride 50 ML IV (13:28)
--- NOTE | 2023-02-14 18:22 | PC.NURSE ---
Pt went into SVT 160s, sustaining for about 5 minutes. VS obtained HR 165, BP 148/78, O2 92% on 2 L NC, RR 17. Pt reporting no dizziness, SOB, or chest pain. MD notified. Pt instructed to bear down with no effect. Pt instructed to blow into empty syringe; pt converted back to normal sinus rhythm. Pt remaining in normal sinus rhythm at this time.
[2023-02-14] MEDS: Acetaminophen 325 MG TABLET 650 MG PO (20:06)
[2023-02-14] MEDS: Metoprolol Succinate ER 25 MG TAB.ER.24H PO (20:07)
[2023-02-14] MEDS: Atorvastatin Calcium 40 MG TABLET PO (20:07)
[2023-02-15] VITALS (8 sets, daily range): BP systolic 105–132; BP diastolic 51–63; PULSE 59–65; RESP 18–20; TEMP 36.1–37.7; O2SAT 94–96
[2023-02-15] MEDS: 0.9 % Sodium Chloride Flush 3 ML SYRINGE IVFLUSH ×4 (00:25→19:47)
[2023-02-15 06:25] LABS: Hematocrit 33.7 % (37.0-47.0); Hemoglobin 11.3 g/dl (12.0-16.0); Mean Corpuscular HGB Conc 33.5 g/dl (31.0-35.0); Mean Corpuscular Hemoglobin 31.1 pg (27.0-33.0); Mean Corpuscular Volume 92.8 fL (80.0-98.0); Mean Platelet Volume 10.5 fL (9.4-12.3); Platelet Count 239 X10*3/uL (160-400); Red Blood Count 3.63 X10*6/uL (4.20-5.50); Red Cell Distribution Width 13.6 % (11.0-16.0); White Blood Count 16.4 X10*3/uL (4.8-10.8)
[2023-02-15 06:40] LABS: Anion Gap 14 (12-20); Blood Urea Nitrogen 17 mg/dL (9-16); Calcium 9.1 mg/dL (8.4-10.2); Carbon Dioxide 27 mmol/L (22-29); Chloride 106 mmol/L (96-108); Creatinine Clr Calc Pharmacy 43.8; Estimated Glomerular Filt Rate 49; Glucose Random 128 mg/dL (60-115); Magnesium 2.1 mg/dL (1.6-2.6); Potassium 3.5 mmol/L (3.3-5.1); Sodium 143 mmol/L (135-145)
[2023-02-15 06:46] LABS: B Type Natriuretic Peptide 184 pg/mL (<100)
--- NOTE | 2023-02-15 07:00 | CA_ITS ---
Transthoracic Echocardiogram Patient (Last, First, Middle): Patsy Frey, Gender: Female Date of : 1940 Age: 83 Procedure Date: 02/15/2023 Procedure Type: Transthoracic Echocardiogram Location: [facility] [place] Height: 165.1 cm Weight: 94.8 kg BSA: 2.02 m2 Heart Rate: bpm BP: 135 / 63 mmHg Single Needle Tufting Machine Operator: SB Referring MD: Thania Forrester MD Symptoms: new af Study Quality: Adequate with contrast ECG Rhythm: Sinus Conclusions: - The left ventricular systolic function is normal. The visually estimated ejection fraction is between 60-65%. - There is mild calcification of the aortic valve. - There is severe posterior mitral annular calcification. Findings Procedure Information Contrast agent, definity, is being given per protocol without apparent complications. Left Ventricle Normal left ventricular cavity size. The left ventricular systolic function is normal. The visually estimated ejection fraction is between 60-65%. Evidence suggests grade I (mild) diastolic dysfunction. There is mild septal asymmetric hypertrophy. Right Ventricle Mildly increased right ventricular cavity size. There is normal right ventricular systolic function. Atria Both atria are normal in size. Aortic Valve There is a normal trileaflet aortic valve. There is mild calcification of the aortic valve. There is no aortic valve stenosis. There is no aortic valve regurgitation. Mitral Valve There is severe posterior mitral annular calcification. There is no mitral valve regurgitation. There is no mitral valve stenosis. Pulmonic Valve The pulmonic valve is likely normal. Tricuspid Valve There is mild tricuspid valve regurgitation. There is no evidence of pulmonary hypertension. Great Vessels The asc aorta is normal in size. Venous The inferior vena cava is normal in size and collapses greater than 50% with inspiration. Pericardium/Pleural There is no evidence of pericardial effusion. Prior Study Comparison No prior study available for comparison. Measurements 2D Linear Measurements IVSd: 1.08 0.6-0.9/0.6-1.0 cm LVIDd: 4.53 3.9-5.3/4.2-5.9 cm LVIDd Index: 2.24 2.4-3.2/2.2-3.1 cm/m2 LVIDs: 2.62 2.0-3.6 cm LVPWd: 0.45 0.7-1.1 cm LA Diam: 3.60 2.7-3.8/3.0-4.0 cm LAIDs Index: 1.78 1.5-2.3 cm/m2 LV Mass: 134.43 67-162/88-224 g LV Mass Index: 66.55 43-95/49-115 g/m2 LVOT Diam: 1.90 3.0+(-)1.3 cm 2D Systolic Function EF 4C: 65.70 >55% EF 2C: 68.00 >55% EF BiP: 68.60 >55% Mitral Valve MV VTI: 0.41 MV Pk Erwin: 1.42 MV Mn Erwin: 0.69 MV Pk Grad: 8.00 MV Mn Grad: 3.00 MV Pk E: 0.82 MV PK A: 1.27 MV Decel Time: 190.00 E/A: 0.60 E'Lateral: 6.64 E'Medial: 5.33 E/E' Med: 15.30 E/E' Lat: 12.30 PHT: 56.00 MVA PHT: 3.93 MVA Continuity: 2.00 Decel [place]: 4.32 Aortic Valve AoV Pk Erwin: 1.86 AoV Mn Erwin: 1.23 AoV VTI: 0.39 AoV Pk Grad: 14.00 Aov Mn Grad: 7.00 ROSELIA Cont.VTI: 2.13 LVOT LVOT Pk Erwin: 1.29 LVOT Mn Erwin: 0.89 LVOT VTI: 0.29 LVOT Pk Grad: 7.00 LVOT Mn Grad: 4.00 LVOT Diam: 1.90 LVOT Area: 2.84 Diastolic Function MV Pk E: 0.82 MV Pk A: 1.27 E/A: 0.60 E'Medial: 5.33 E/E' Med: 15.30 E' Laterial: 6.64 E/E' Lat: 12.30 Right Ventricle TAPSE (mm): 24.40 TVS' Erwin: 15.30 Tricuspid Valve TR Pk Erwin: 2.44 TR Pk Grad: 24.00 Great Vessels Aorta Sinus of Valsalva: 3.30 2.0-3.5 cm Ao Asc: 3.50 2.1-3.4 cm Pulmonary Valve PV Pk Erwin: 1.08 Peak PV Grad: 5.00 Updated in Other Vendor System with Status of Final Lester Krishnamurthy MD electronically signed on 02/15/2023 11:21:11 AM with status of Final
[2023-02-15] MEDS: Fluticasone/Vilanterol 100/25 BLST.W.DEV 1 PUFF INHALE (08:47)
[2023-02-15] MEDS: Furosemide 20 MG/2 ML VIAL IVPUSH (09:51)
[2023-02-15] MEDS: Montelukast Sodium 10 MG TABLET PO (09:51)
[2023-02-15] MEDS: Apixaban 5 MG TABLET PO ×2 (09:51→19:47)
[2023-02-15] MEDS: Cholecalciferol (Vitamin D3) 25 MCG TABLET PO (09:51)
[2023-02-15] MEDS: Sertraline HCL 100 MG TABLET PO ×2 (09:51→19:47)
[2023-02-15] MEDS: Meclizine HCl 25 MG TABLET PO ×2 (09:51→19:47)
[2023-02-15] MEDS: Docusate Sodium 100 MG CAPSULE PO ×2 (09:51→19:47)
[2023-02-15] MEDS: Metoprolol Succinate ER 25 MG TAB.ER.24H PO ×2 (09:51→19:47)
[2023-02-15] MEDS: cefTRIAXone sodium 2 GM in 0.9 % Sodium Chloride 50 ML IV (12:00)
--- NOTE | 2023-02-15 13:11 | HO.PM.IMPN ---
Subjective Subjective Date of Service: 02/15/23 Interval History: SVT last evening at 18:00, terminated with Valsalva no SVT since then, remains in sinus rhythm feeling better Review of Systems Review of Systems: Yes all other systems are reviewed and are negative Physical Exam Vital Signs: Vital Signs: Last Vital Signs Temp 97.0 F 02/15/23 11:57 Pulse 61 02/15/23 11:57 Resp 20 02/15/23 11:57 BP 123/60 02/15/23 11:57 Pulse Ox 94 02/15/23 11:57 O2 Del Method Nasal Cannula 02/15/23 11:57 O2 Flow Rate 2 02/15/23 11:57 BMI result Body Mass Index 34.9 Gen: weak but no acute distress HEENT: sclera anicteric, moist mucus membranes Neck: supple Lungs: clear bilaterally Heart: regular rate and rhythm, no murmurs Abd: soft, non-tender, non-distended Ext: no edema Skin: warm/well-perfused Neuro: alert and oriented x3, 4/5 strength in all extremities except 3/5 in RLE Psych: appropriate affect Objective Data Active Medications Acetaminophen (Acetaminophen 325 Mg Tablet) 650 mg PO Q6H PRN PRN Reason: Pain, Mild (Pain Scale 1-3) Last Admin: 02/14/23 20:06 Dose: 650 mg Documented By: VALORIE Albuterol Sulfate (Albuterol Sulfate 90 Mcg 8 Gm Inhaler) 2 puff INHALE Q4H PRN PRN Reason: sob or Wheezing Apixaban (Apixaban 5 Mg Tablet) 5 mg PO BID [facility] Last Admin: 02/15/23 09:51 Dose: 5 mg Documented By: OG Atorvastatin Calcium (Atorvastatin Calcium 40 Mg Tablet) 40 mg PO BEDTIME [facility] Last Admin: 02/14/23 20:07 Dose: 40 mg Documented By: VALORIE Docusate Sodium (Docusate Sodium 100 Mg Capsule) 100 mg PO BID [facility] Last Admin: 02/15/23 09:51 Dose: 100 mg Documented By: OG Fluticasone/Vilanterol (Fluticasone/Vilanterol 100/25 Blst.W.Dev) 1 puff INHALE RDAILY [facility] Last Admin: 02/15/23 08:47 Dose: 1 puff Documented By: STARR Furosemide (Furosemide 20 Mg/2 Ml Vial) 20 mg IVPUSH DAILY [facility]; Protocol Last Admin: 02/15/23 09:51 Dose: 20 mg Documented By: OG Ceftriaxone Sodium 2 gm/ (Sodium Chloride) 50 mls @ 100 mls/hr IV Q24H [facility] Last Infusion: 02/15/23 12:30 Dose: Infused Documented By: OG Meclizine HCl (Meclizine Hcl 25 Mg Tablet) 25 mg PO BID [facility] Last Admin: 02/15/23 09:51 Dose: 25 mg Documented By: OG Metoprolol Succinate (Metoprolol Succinate Er 25 Mg Tab.Er.24h) 25 mg PO BID [facility]; Protocol Last Admin: 02/15/23 09:51 Dose: 25 mg Documented By: OG Montelukast Sodium (Montelukast Sodium 10 Mg Tablet) 10 mg PO DAILY [facility] Last Admin: 02/15/23 09:51 Dose: 10 mg Documented By: OG Ondansetron HCl (Ondansetron Hcl 4 Mg/2 Ml Vial) 4 mg IVPUSH Q8H PRN PRN Reason: Nausea and Vomiting Last Admin: 02/12/23 12:22 Dose: 4 mg Documented By: ANA MARIA Sertraline HCl (Sertraline Hcl 100 Mg Tablet) 100 mg PO BID [facility] Last Admin: 02/15/23 09:51 Dose: 100 mg Documented By: OG Sodium Chloride (0.9 % Sodium Chloride Flush 3 Ml Syringe) 3 ml IVFLUSH QSHIFT [facility] Last Admin: 02/15/23 09:51 Dose: 3 ml Documented By: OG Vitamin D (Cholecalciferol (Vitamin D3) 25 Mcg Tablet) 25 mcg PO DAILY [facility] Last Admin: 02/15/23 09:51 Dose: 25 mcg Documented By: OG Labs 02/15/23 05:52 02/15/23 05:52 Labs: Laboratory Results - last 24 hr 02/15/23 05:52 MCV 92.8 MCH 31.1 MCHC 33.5 RDW 13.6 Plt Count 239 MPV 10.5 Absolute Nucleated RBC 0.000 Nucleated RBC % (auto) 0.0 Anion Gap 14 Estim Creat Clear Calc 43.8 Estimated GFR 49 Random Glucose 128 H Calcium 9.1 Magnesium 2.1 B-Natriuretic Peptide 184 H Assessment and Plan (1) Sepsis: Status: Acute Plan d6 83yo F resident of assisted living facility with PMHx of CVA on apixaban, CARON not on CPAP, and COPD not on home oxygen presenting with 2-3d of lightheadedness, weakness, vomiting, and urinary discomfort found to be confused and septic due to E coli bacteremia/UTI acute encephalopathy due to sepsis due to E coli bacteremia/UTI - continue IV ceftriaxone [increased to 2g q24h] 02/11-02/25; will need total 14d but can be completed with oral cefuroxime upon eventual discharge SVT - continue metoprolol succinate. if recurs, switch to verapamil. Cardiology following. TTE today: - The left ventricular systolic function is normal. The visually estimated ejection fraction is between 60-65%. - There is mild calcification of the aortic valve. - There is severe posterior mitral annular calcification. labial hematoma - s/p I+D by Dr Dean on 02/10/23 AF/RVR - now in NSR. on apixaban for anticoagulation plus metoprolol succinate for rate control. TTE as above. acute HFpEF - continue IV furosemide, monitor lytes + I/O, TTE as above acute hypoxic resp failure - wean O2 as tolerated; provide IS CARYN, prerenal, resolved - given IV fluids, resolved and then fluid-overloaded; diuresing now hypoK - repleted COPD not in acute exacerbation - continue prn albuterol, ICS/LABA hx CVA - continue apixaban, atorvastatin anxiety - continue sertraline VTE ppx - apixaban dispo - PT evaluation done: plan STR- pt has bed at [facility]. If no SVT x24h may be ready tomorrow. I updated the pt's daughter Ariane by phone today, In my clinical judgment, the patient requires continued inpatient hospitalization for the following reasons: IV ABX, cardiac monitoring Time Spent With Patient Time: Total time managing care of this patient today __45__ minutes. Quality Stroke Does the patient have a stroke diagnosis?: No VTE Prior VTE?: No VTE Risk Level:: Medical - moderate - high VTE Device Contraindication: N/A - Device Ordered VTE Drug Contraindication: N/A - Med Ordered
[2023-02-15] MEDS: Atorvastatin Calcium 40 MG TABLET PO (19:47)
[2023-02-16 01:31] VITALS: BP 132/68; PULSE 62; RESP 18; TEMP 36.4; O2SAT 95
--- NOTE | 2023-02-16 01:46 | PC.NURSE ---
Assumed care of pt at 19:00 (02/15). At 01:27 this commercial insurance underwriter was notified by nuclear monitoring technician pt was in SVT HR 150's. Message Broker Developer responded immediately to bedside. HR noted 140's, Pt asymptomatic. Vitals obtained, spontaneous resolution observed with pt back to NSR HR 62 after approx. four minutes SVT. Covering Dr. Brito notified. See shift assessment for full details. Will continue to monitor for remainder of scheduled shift.
[2023-02-16 03:41] VITALS: BP 119/58; PULSE 63; RESP 18; TEMP 36.8; O2SAT 93
[2023-02-16 08:00] VITALS: BP 123/60; PULSE 59; RESP 19; TEMP 36.9; O2SAT 96
[2023-02-16] MEDS: Fluticasone/Vilanterol 100/25 BLST.W.DEV 1 PUFF INHALE (08:05)
[2023-02-16 08:07] VITALS: PULSE 59; RESP 18; O2SAT 96
[2023-02-16] MEDS: Metoprolol Succinate ER 25 MG TAB.ER.24H PO (09:54)
[2023-02-16] MEDS: Montelukast Sodium 10 MG TABLET PO (09:55)
[2023-02-16] MEDS: Meclizine HCl 25 MG TABLET PO (09:55)
[2023-02-16] MEDS: 0.9 % Sodium Chloride Flush 3 ML SYRINGE IVFLUSH ×2 (09:55→15:57)
[2023-02-16] MEDS: Docusate Sodium 100 MG CAPSULE PO (09:55)
[2023-02-16] MEDS: Apixaban 5 MG TABLET PO (09:55)
[2023-02-16] MEDS: Sertraline HCL 100 MG TABLET PO (09:55)
[2023-02-16] MEDS: Cholecalciferol (Vitamin D3) 25 MCG TABLET PO (09:55)
[2023-02-16] MEDS: Furosemide 20 MG/2 ML VIAL IVPUSH (09:55)
[2023-02-16 12:00] VITALS: BP 110/59; PULSE 63; RESP 20; TEMP 36.4; O2SAT 94
--- NOTE | 2023-02-16 12:15 | MHC.CM.PN ---
Addendum entered by Akua Amaya, RN 02/16/23 13:27: CM CONTACTED PT'S DTR AGUSTIN AT 1:20PM TO CONFIRM PLN, AGUSTIN REQUESTED CM EXPND SNF REFERRAL TO [facility] AND PT REPORTS SHE IS FRIEND S W/THE AUTHOR AGENT, CM HAS ALSO EXPANDED TO [facility] W/AGUSTIN'S PERMISSION. Original Note: CM RETURNED CALL FROM PTS DTR/HCP AGUSTIN [phone], AGUSTIN REPORTING THAT SHE WOULD LIKE TO TRY TO ARRANGE INCREASED CARE AT PT'S [facility], AND REPORTS SHE WAS HAVING DIFFICULTY GETTING A HOLD OF ANYONE FROM [facility], CM ATTEMPTED TO CONTACT [facility] AT MAIN NUMBER WHICH WENT DIRECTLY TO [employer], CM WAS GIVEN DIRECT LINE FOR MANAGEMENT [phone] AND WAS TRANSFERRED THEIR SERVER MANAGER, CM RECEIVED CALL BACK FROM CHARLES DASH NURSE PROCESS ENG WHO REPORTS PT IS A TWO ASSIST THEY WILL NOT BE ABLE TO ACCOMMODATE THAT AND FAMILY WOULD NEED TO PROVIDE 24HR CARE AT FACILITY, CHARLES REPORTS MEJIA THE INVESTMENT STRATEGIST IS CALLING FAMILY TO DISCUSS, CM WILL AWAIT RESULT OF THAT CONVERSATION.
[2023-02-16] MEDS: cefTRIAXone sodium 2 GM in 0.9 % Sodium Chloride 50 ML IV (12:44)
--- NOTE | 2023-02-16 13:28 | P.PNIM_ITS ---
Subjective Subjective Date of Service: 02/16/23 Interval History: SVT last evening, terminated with Valsalva no SVT since then, remains in sinus rhythm feeling better Review of Systems Review of Systems: Yes all other systems are reviewed and are negative Physical Exam 2 Vital Signs: Vital Signs: Last Vital Signs Temp 97.6 F 02/16/23 12:00 Pulse 63 02/16/23 12:00 Resp 20 02/16/23 12:00 BP 110/59 L 02/16/23 12:00 Pulse Ox 94 02/16/23 12:00 O2 Del Method Nasal Cannula 02/16/23 12:00 O2 Flow Rate 2 02/16/23 12:00 BMI result Body Mass Index 34.9 Constitutional - Awake and Alert, No apparent distress Eyes - PERRLA, EOMI Cardiovascular - S1S2, RRR, No edema Respiratory - Normal lung expansion, Normal respiratory effort, No respiratory distress, CTA bilaterally Extremities - no calf tenderness bilaterally, no swelling Skin - Warm/Dry Neurological - Alert & oriented x3 Psychological - Appropriate affect Objective Data Active Medications Acetaminophen (Acetaminophen 325 Mg Tablet) 650 mg PO Q6H PRN PRN Reason: Pain, Mild (Pain Scale 1-3) Last Admin: 02/14/23 20:06 Dose: 650 mg Documented By: VALORIE Albuterol Sulfate (Albuterol Sulfate 90 Mcg 8 Gm Inhaler) 2 puff INHALE Q4H PRN PRN Reason: sob or Wheezing Apixaban (Apixaban 5 Mg Tablet) 5 mg PO BID [facility] Last Admin: 02/16/23 09:55 Dose: 5 mg Documented By: JOHN Atorvastatin Calcium (Atorvastatin Calcium 40 Mg Tablet) 40 mg PO BEDTIME [facility] Last Admin: 02/15/23 19:47 Dose: 40 mg Documented By: JOSE Docusate Sodium (Docusate Sodium 100 Mg Capsule) 100 mg PO BID [facility] Last Admin: 02/16/23 09:55 Dose: 100 mg Documented By: JOHN Fluticasone/Vilanterol (Fluticasone/Vilanterol 100/25 Blst.W.Dev) 1 puff INHALE RDAILY [facility] Last Admin: 02/16/23 08:05 Dose: 1 puff Documented By: ERICH Furosemide (Furosemide 20 Mg/2 Ml Vial) 20 mg IVPUSH DAILY [facility]; Protocol Last Admin: 02/16/23 09:55 Dose: 20 mg Documented By: JOHN Ceftriaxone Sodium 2 gm/ (Sodium Chloride) 50 mls @ 100 mls/hr IV Q24H [facility] Last Infusion: 02/16/23 13:23 Dose: Infused Documented By: JOHN Meclizine HCl (Meclizine Hcl 25 Mg Tablet) 25 mg PO BID [facility] Last Admin: 02/16/23 09:55 Dose: 25 mg Documented By: JOHN Metoprolol Succinate (Metoprolol Succinate Er 25 Mg Tab.Er.24h) 25 mg PO BID [facility]; Protocol Last Admin: 02/16/23 09:54 Dose: 25 mg Documented By: JOHN Montelukast Sodium (Montelukast Sodium 10 Mg Tablet) 10 mg PO DAILY [facility] Last Admin: 02/16/23 09:55 Dose: 10 mg Documented By: JOHN Ondansetron HCl (Ondansetron Hcl 4 Mg/2 Ml Vial) 4 mg IVPUSH Q8H PRN PRN Reason: Nausea and Vomiting Last Admin: 02/12/23 12:22 Dose: 4 mg Documented By: ANA MARIA Sertraline HCl (Sertraline Hcl 100 Mg Tablet) 100 mg PO BID [facility] Last Admin: 02/16/23 09:55 Dose: 100 mg Documented By: JOHN Sodium Chloride (0.9 % Sodium Chloride Flush 3 Ml Syringe) 3 ml IVFLUSH QSHIFT [facility] Last Admin: 02/16/23 09:55 Dose: 3 ml Documented By: JOHN Vitamin D (Cholecalciferol (Vitamin D3) 25 Mcg Tablet) 25 mcg PO DAILY [facility] Last Admin: 02/16/23 09:55 Dose: 25 mcg Documented By: JOHN Labs 02/15/23 05:52 02/15/23 05:52 Assessment and Plan (1) Sepsis: Status: Acute Plan d7 83yo F resident of assisted living facility with PMHx of CVA on apixaban, CARON not on CPAP, and COPD not on home oxygen presenting with 2-3d of lightheadedness, weakness, vomiting, and urinary discomfort found to be confused and septic due to E coli bacteremia/UTI acute encephalopathy due to sepsis due to E coli bacteremia/UTI - continue IV ceftriaxone [increased to 2g q24h] 02/11-02/25; will need total 14d but can be completed with oral cefuroxime upon eventual discharge SVT - continue metoprolol succinate. if recurs, switch to verapamil. Cardiology following, 1 min SVT overnight, ok to continue metoprolol. TTE today: - The left ventricular systolic function is normal. The visually estimated ejection fraction is between 60-65%. - There is mild calcification of the aortic valve. - There is severe posterior mitral annular calcification. labial hematoma - s/p I+D by Dr Dean on 02/10/23 AF/RVR - now in NSR. on apixaban for anticoagulation plus metoprolol succinate for rate control. TTE as above. acute HFpEF - continue IV furosemide, monitor lytes + I/O, TTE as above acute hypoxic resp failure - wean O2 as tolerated; provide IS CARYN, prerenal, resolved - given IV fluids, resolved and then fluid-overloaded; diuresing now hypoK - repleted COPD not in acute exacerbation - continue prn albuterol, ICS/LABA hx CVA - continue apixaban, atorvastatin anxiety - continue sertraline VTE ppx - apixaban dispo - PT evaluation done: plan STR- pending bed availability. DC today or tomorrow depending on bed availability I updated the pt's daughter Ariane by phone today, In my clinical judgment, the patient requires continued inpatient hospitalization for the following reasons: IV ABX, cardiac monitoring Discussed with Dr. Thomas Time Spent With Patient Time: Total time managing care of this patient today ____ minutes. Quality Stroke Does the patient have a stroke diagnosis?: No VTE Prior VTE?: No VTE Risk Level:: Medical - moderate - high VTE Device Contraindication: N/A - Device Ordered VTE Drug Contraindication: N/A - Med Ordered
--- NOTE | 2023-02-16 13:35 | PM.DS ---
DS: Providers Provider Date of Service: 02/16/23 Date of admission: 02/10/23 15:23 Primary care physician: Yo Tang MD Consults: 02/10/23 15:34 Consult to Obstetrics / Gynecology Routine Consulting Provider: Harry Dean Reason for consultation: 4cm R labial mass- Bartholin cyst? 02/12/23 05:20 Consult to Cardiology Routine Consulting Provider: [facility] Reason for consultation: AFib with RVR Has provider been notified: Yes DS: Diagnosis Discharge Diagnosis (1) Sepsis: Status: Acute DS: Summary Hospital Course Hospital Course: HPI on admission by Dr. 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 She comes in with 2-3 days of worsening lightheadedness and generalized weakness along with several episodes of vomiting. She has been urinating more frequently and complains of some discomfort with urination. [facility] staff was concerned about her appearing dipahoretic and sent her in for evaluation. She has a history of a prior UTI with similar symptoms. She was found to be septic with 21.1k WBCs, 19% bands, and tachycardia in the 90s. She was mildly confused; CT head showed microvascular disease and old lacunar infarcts of the L thalamus and upper L estefania/cerebral peduncle. CXR was negative. She had nitrituria, pyuria, and bacteruria. Serum creatinine was slightly elevated to 1.19 compared to baseline of 0.8 in August 2022 at [facility] [place]. Serum potassium was 2.9. BP was 122/52. Lactate was 1.5. She was given 1L of normal saline and 1g of IV ceftriaxone along with 40 mEq of KCl. Hospital course: 83yo F resident of [facility] with PMHx of CVA on apixaban, CARON not on CPAP, and COPD not on home oxygen presenting with 2-3d of lightheadedness, weakness, vomiting, and urinary discomfort found to be confused and septic due to E coli bacteremia/UTI Hospital course complicated by SVT, started on metoprolol 25mg BID with improvement. Intermittent short runs (<60s) of SVT managed with vagal maneuvers. Also complicated by new onset atrial fibrillation, apixaban eventually initiated following labial hematoma I&D by transportation planning engineer. Converted to NSR. Followed by Cardiology Follow up with pcp and cardiology to be discharged to [facility] acute encephalopathy due to sepsis due to E coli bacteremia/UTI - continue IV ceftriaxone [increased to 2g q24h] 02/11-02/25; Complete 14 total days of antibiotics on po cefuroxime 500mg (x8 additional days) SVT - continue metoprolol succinate. Seen by cardiololgy. If recurrent switch to verapamil. TTE: - The left ventricular systolic function is normal. The visually estimated ejection fraction is between 60-65%. - There is mild calcification of the aortic valve. - There is severe posterior mitral annular calcification. labial hematoma - s/p I+D by Dr Dean on 02/10/23 AF/RVR- new onset - now in NSR. on apixaban for anticoagulation plus metoprolol succinate for rate control. TTE as above. acute HFpEF - continue IV furosemide, monitor lytes + I/O, TTE as above acute hypoxic resp failure - wean O2 as tolerated; provide IS CARYN, prerenal, resolved - given IV fluids, resolved and then fluid-overloaded; diuresed well hypoK - repleted COPD not in acute exacerbation - continue prn albuterol, ICS/LABA hx CVA - continue apixaban, atorvastatin anxiety - continue sertraline Status at Discharge Functional status at discharge: uses cane/walker Time Spent with Patient Time attestation: Total time managing care of this patient today ____ minutes. Discharge coordination time: Greater than 30 minutes Quality: Safe Use of Opioids Does Pt have an Active Cancer Diagnosis on the Problem List?: No Quality: Stroke Does the patient have a stroke diagnosis?: No Physical Exam Vital Signs: Vital Signs: Last Vital Signs Temp 97.6 F 02/16/23 12:00 Pulse 63 02/16/23 12:00 Resp 20 02/16/23 12:00 BP 110/59 L 02/16/23 12:00 Pulse Ox 94 02/16/23 12:00 O2 Del Method Nasal Cannula 02/16/23 12:00 O2 Flow Rate 2 02/16/23 12:00 BMI result Body Mass Index 34.9 Discharge Plan Discharge Anticipated Discharge Date/Time: 02/16/23 14:56 Patient Disposition: Xfer SNF Discharge Diagnosis: UTI, sepsis, Atrial fibrillation, SVT Referrals: Kurt Irwin [Outside] - 1 Day (SHORT TERM REHAB) Yo Tang MD [Primary Care Provider] - 1 Week Reza Cee MD [Physician] - 1 Week Discharge Medications: New cefuroxime axetil 500 mg tablet 500 mg PO Q12H Qty: 16 0RF metoprolol succinate 25 mg Tablet Extended Release 24 Hr 25 mg PO BID Qty: 60 1RF Protocol: Hold for SBP/HR < HOLD for SBP < : 90 HOLD for HR < : 60 furosemide 20 mg tablet 20 mg PO DAILY Qty: 30 1RF Continued atorvastatin 40 mg Tablet 40 mg PO BEDTIME sertraline 100 mg tablet 100 mg PO BID meclizine 25 mg tablet 25 mg PO BID montelukast 10 mg tablet 10 mg PO DAILY albuterol sulfate 90 mcg/actuation Hfa Aerosol Inhaler 2 puff INHALATION Q4-6H PRN (Reason: sob or Wheezing) ondansetron 4 mg Tablet,Disintegrating 4 mg PO Q6H PRN (Reason: Nausea) docusate sodium 100 mg Tablet 100 mg PO BID fluticasone propion-salmeterol [Advair HFA] 45-21 mcg/actuation Hfa Aerosol Inhaler 2 puff INHALATION BID cholecalciferol (vitamin D3) 25 mcg (1,000 unit) Tablet 25 mcg PO DAILY Eliquis 5 mg Tablet 5 mg PO BID Discharge Orders: Discharge Order (Routine); Ordered 02/16/23 Ordered By: Kacey Hoang Diet: Advance to usual diet Activity on Discharge: As tolerated Stand Alone Forms: Patient Portal Discharge page Care Plan Goals: see below Health Concerns: Atrial fibrillation Supraventricular tachycardia UTI with sepsis and bacteremia Congestive heart failure Labial hematoma Plan of Treatment: UTI with sepsis complicated by E coli bacteremia -treated with 2 g IV ceftriaxone x6 days -complete 14 day course with additional 8 days of cefuroxime 500 mg twice daily Atrial fibrillation-new onset -continue Eliquis 5 mg twice daily for anticoagulation to reduce risk of stroke -continue metoprolol 25 mg twice daily for rate control -follow-up with cardiology # congestive heart failure -continue Lasix 20 mg daily Labial hematoma -incision and drainage performed by transportation planning engineer -Katequis resumed, blood counts remain stable -monitor for recurrent symptoms SVT -started on metoprolol 25 mg twice daily -incidentally noted short runs of SVT lasting less than 1 minute noted on fast food restaurant manager. If symptomatic with lightheadedness, palpitations, shortness of breath, attempt vagal renew burs such as bearing down -follow up with cardiology Assessment: see above
== END 2023-02-16 17:08 | disposition skilled nursing facility (03) | DRG 871 ==
LOC: HO.ED 13:36 → HO.EDOVER 15:30 → HO.IMC 19:16
PROVIDERS: Physician Assistant; Admitting Provider Family Medicine; Emergency Provider Emergency Medicine; PCP Internal Medicine; Visit Provider Physician Assistant
DX: A41.51 Sepsis due to Escherichia coli [E. coli] (principal); G93.41 Metabolic encephalopathy; I50.31 Acute diastolic (congestive) heart failure; J96.01 Acute respiratory failure with hypoxia; I47.10 Supraventricular tachycardia, unspecified; N39.0 Urinary tract infection, site not specified; N17.9 Acute kidney failure, unspecified; E87.6 Hypokalemia; Z66 Do not resuscitate; N90.89 Other specified noninflammatory disorders of vulva and perineum; F41.9 Anxiety disorder, unspecified; N75.0 Cyst of Bartholin's gland; I48.0 Paroxysmal atrial fibrillation; G47.33 Obstructive sleep apnea (adult) (pediatric); Z20.822 Contact with and (suspected) exposure to COVID-19; Z87.891 Personal history of nicotine dependence; Z79.01 Long term (current) use of anticoagulants; Z79.51 Long term (current) use of inhaled steroids; Z79.899 Other long term (current) drug therapy
CPT/HCPCS: 0241U; 10140; 36415; 70450; 71045; 71046; 76775; 80048; 80053; 80076; 81001; 82140; 82803; 83605; 83735; 83880; 84443; 85007; 85027; 87040; 87077; 87086; 87088; 87186; 87205; 92950; 93005; 93306; 94640; 97161; 99285; J0696; J1940; J2405; Q9957

== ENCOUNTER 2023-02-10 15:23 | Outpatient (BNV) | payer MEDICARE, OTHER, SELFPAY | END 2023-02-15 07:00 | PROVIDERS: Admitting Provider Family Medicine; Emergency Provider Emergency Medicine; PCP Internal Medicine; Visit Provider Internal Medicine | DX: I34.81 Nonrheumatic mitral (valve) annulus calcification (principal); I35.8 Other nonrheumatic aortic valve disorders | CPT/HCPCS: 93306 ==

== ENCOUNTER → 2023-02-10 15:23 | Outpatient (BNV) | payer MEDICARE, OTHER, SELFPAY | PROVIDERS: Admitting Provider Family Medicine; Emergency Provider Emergency Medicine; PCP Internal Medicine; Visit Provider Internal Medicine Cardiovascular Disease | DX: A41.9 Sepsis, unspecified organism (principal); I48.0 Paroxysmal atrial fibrillation; I50.9 Heart failure, unspecified | CPT/HCPCS: 99222; 99232 ==

== ENCOUNTER → 2023-02-10 15:23 | Outpatient (BNV) | payer MEDICARE, OTHER, SELFPAY | PROVIDERS: Admitting Provider Family Medicine; Emergency Provider Emergency Medicine; PCP Internal Medicine; Visit Provider Obstetrics & Gynecology | DX: S30.23XA Contusion of vagina and vulva, initial encounter (principal) | CPT/HCPCS: 56405; 99222 ==

== ENCOUNTER → 2023-02-10 15:23 | Outpatient (BNV) | payer MEDICARE, OTHER, SELFPAY | PROVIDERS: Admitting Provider Family Medicine; Emergency Provider Emergency Medicine; PCP Internal Medicine; Visit Provider Family Medicine | DX: A41.9 Sepsis, unspecified organism (principal) | CPT/HCPCS: 99223; 99232; 99239 ==

== ENCOUNTER 2023-03-12 19:56 | Emergency (ER) | payer MEDICARE, OTHER, SELFPAY ==
[2023-03-12 20:06] VITALS: BP 114/60; PULSE 58; O2SAT 92
[2023-03-12 20:14] VITALS: BP 115/53; PULSE 58; RESP 15; O2SAT 90; BMI 35.5
[2023-03-12 20:18] VITALS: TEMP 36.6
[2023-03-12 20:58] LABS: MANUAL DIFF FLAG NO
--- NOTE | 2023-03-12 20:58 | PC.NURSE ---
iv established/labs drawn. awaiting primary eval by ed provider.
[2023-03-12 21:00] LABS: Basophils Absolute Auto 0.1 X10*3/uL (0.0-0.2); Basophils Percent Auto 0.4 % (0-2); Eosinophils Absolute Auto 0.2 X10*3/uL (0.0-0.4); Eosinophils Percent Auto 1.1 % (0-4); Hematocrit 31.7 % (37.0-47.0); Hemoglobin 10.2 g/dl (12.0-16.0); Imm Gran Pct Auto 2.5 % (0.0-0.4); Lymphocytes Absolute Auto 1.9 X10*3/uL (1.2-4.9); Lymphocytes Percent Auto 9.5 % (20-40); Mean Corpuscular HGB Conc 32.2 g/dl (31.0-35.0); Mean Corpuscular Hemoglobin 29.9 pg (27.0-33.0); Mean Platelet Volume 8.6 fL (9.4-12.3); Monocytes Absolute Auto 1.4 X10*3/uL (0.1-1.2); Monocytes Percent Auto 7.1 % (2-11); Neutrophils Absolute Auto 15.9 x10*3/uL (2.0-8.3); Neutrophils Percent Auto 79.4 % (45-73); Platelet Count 659 X10*3/uL (160-400); Red Blood Count 3.41 X10*6/uL (4.20-5.50); Red Cell Distribution Width 14.2 % (11.0-16.0)
[2023-03-12 21:10] LABS: Lactic Acid 0.9 mmol/L (0.5-2.0)
[2023-03-12 21:17] LABS: Alanine Aminotransferase 32 U/L (0-31); Alkaline Phosphatase 90 U/L (39-117); Anion Gap 17 (12-20); Aspartate Amino Transferase 38 U/L (5-31); Bilirubin Total 0.3 mg/dL (0.0-1.0); Blood Urea Nitrogen 27 mg/dL (9-16); Carbon Dioxide 26 mmol/L (22-29); Chloride 102 mmol/L (96-108); Creatinine Clr Calc Pharmacy 29.8; Estimated Glomerular Filt Rate 37; Glucose Random 119 mg/dL (60-115); Potassium 4.5 mmol/L (3.3-5.1); Sodium 140 mmol/L (135-145); Total Protein 9.1 g/dL (6.5-8.0)
[2023-03-12 22:00] VITALS: BP 126/64; PULSE 60; RESP 19; O2SAT 90
[2023-03-12 23:45] VITALS: BP 115/57; PULSE 66; RESP 18; O2SAT 90
--- NOTE | 2023-03-13 00:13 | ED_ITS ---
HPI - Weakness General Chief complaint: Weakness Stated complaint: GENERALIZED WEAKNESS Time Seen by Provider: 03/12/23 23:43 Source: patient, EMS and old records reviewed Mode of arrival: EMS Limitations: no limitations History of Present Illness HPI Narrative: 83-year-old female who is a resident of [facility] patient with insignificant past medical history of CVA 2015 complicated by aphasia and right hemiparesis, COPD no supplemental oxygen. Patient is complaining of generalized weakness which is typically happen when has UTI. Related Data Home Medications Medication Instructions Recorded Confirmed albuterol sulfate 90 mcg/actuation 2 puff inhalation Q4-6H PRN sob or 02/10/23 02/10/23 aerosol inhaler Wheezing apixaban 5 mg tablet (Eliquis) 5 mg PO BID 02/10/23 02/10/23 atorvastatin 40 mg tablet 40 mg PO BEDTIME 02/10/23 02/10/23 cholecalciferol (vitamin D3) 25 25 mcg PO DAILY 02/10/23 02/10/23 mcg (1,000 unit) tablet docusate sodium 100 mg tablet 100 mg PO BID 02/10/23 02/10/23 fluticasone propionate 45 2 puff inhalation BID 02/10/23 02/10/23 mcg-salmeterol 21 mcg/actuation HFA inhaler (Advair HFA) meclizine 25 mg tablet 25 mg PO BID 02/10/23 02/10/23 montelukast 10 mg tablet 10 mg PO DAILY 02/10/23 02/10/23 ondansetron 4 mg disintegrating 4 mg PO Q6H PRN Nausea 02/10/23 02/10/23 tablet sertraline 100 mg tablet 100 mg PO BID 02/10/23 02/10/23 Previous Rx's Medication Instructions Recorded cefuroxime axetil 500 mg tablet 500 mg PO Q12H #16 tabs 02/16/23 furosemide 20 mg tablet 20 mg PO DAILY #30 tabs 02/16/23 metoprolol succinate 25 mg 25 mg PO BID #60 tabs 02/16/23 tablet,extended release 24 hr cefuroxime axetil 500 mg tablet 500 mg PO Q12H #14 tabs 03/13/23 Allergies Allergy/AdvReac Type Severity Reaction Status Date / Time No Known Allergies Allergy Unverified 09/17/20 19:45 [No Known Allergies*] Review of Systems 2 Review of Systems: all other systems are reviewed and are negative Constitutional: Reports as per HPI and Reports no additional constitutional complaints Eyes: Reports as per HPI and Reports no additional eye complaints Reports system reviewed and no additional complaints, except as documented Cardiovascular: Reports as per HPI and Reports no additional cardiovascular complaints Respiratory: Reports as per HPI and Reports no additional respiratory complaints Gastrointestinal: Reports as per HPI and Reports no additional gastrointestinal complaints Genitourinary: Reports no additional female genitourinary complaints Musculoskeletal: Reports no additional musculoskeletal complaints Skin/Breast: Reports system reviewed and no additional complaints, except as docu Psychiatric: Reports no additional psychiatric complaints Endocrine: Reports no additional endocrine complaints Hematologic/Lymphatic: Reports no additional hematologic/lymphatic complaints Allergic/Immunologic: Reports no additional allergic/immunologic complaints Reports system reviewed and no additional complaints, except as documented and Reports Abnormal speech present [facility] Past Medical History Medical History CARON (obstructive sleep apnea) COPD (chronic obstructive pulmonary disease) Anxiety disorder History of stroke Social History Social History Alcohol intake: former Patient Tobacco Use Status: Former Tobacco user Advance Directives: Yes Advance Directives on File: Yes Advance Directives Date on File: 02/10/23 service: No Physical Exam 2 Vital Signs: Vital Signs: Last Vital Signs Temp 98.5 F 03/13/23 01:30 Pulse 61 03/13/23 01:30 Resp 20 03/13/23 01:30 BP 127/56 L 03/13/23 01:30 Pulse Ox 90 L 03/13/23 01:30 O2 Del Method Room Air 03/13/23 01:27 BMI result Body Mass Index 35.5 Vital signs have been reviewed and appear to be correct. Blood pressure elevated. Heart rate normal. Respiratory rate normal. Temperature normal. Oxygen saturation normal. Appearance: Alert. Oriented to person and place. No acute distress. Head: Normal external exam. Normocephalic. Atraumatic. No Grace signs noted. No raccoon eyes noted Eyes: PERRLA. EOMI. Conjunctiva and sclera normal. Eyelids normal. ENT: TM's Normal. Pharynx normal. Uvula midline. Moist mucous membranes. No trismus noted. No drooling noted. No muffled voice noted. Neck: Normal inspection. Neck supple. FROM. No adenopathy. Thyroid Normal. No meningeal signs. No neck mass noted. CVS: Normal heart rate and rhythm. Heart sound normal. No murmurs noted. Pulses normal throughout. Respiratory: No respiratory distress. Painless inspiration. Breath sounds normal. No wheezes/rales/rhonchi noted. Chest nontender. No accessory muscle usage noted or decreased air movement noted. Abdomen: Soft and nontender. Bowel sounds normal in all 4 quadrants. No distention noted. No organomegaly noted. No visible injury noted. Back: No CVA tenderness. Full range of motion noted. Skin: Skin warm and dry. Normal skin color. Normal skin turgor. No rashes/lesions/lacerations noted. Extremities: No lower extremity edema. Extremities exhibit normal range of motion. Extremities nontender. Neuro: Cranial nerve exam: II-XII are grossly intact No motor deficit. No sensory deficit. Reflexes normal. Course Reevaluation(s) Reevaluation #1: simple UTI with generalized weakness with leukocytosis patient do not meet criteria for severe sepsis or septic shock.History of leukocytosis in the past, will start the patient on cefuroxime. O2 sat is 90% patient with history of COPD do not use supplemental oxygen at home. Patient is stable can be discharged home. Time: 06:13 Medications Administered Discontinued Medications Generic Name Dose Route Start Last Admin Trade Name Freq PRN Reason Stop Dose Admin Cefuroxime Axetil 500 mg 03/13/23 02:38 03/13/23 03:39 Cefuroxime Axetil 500 Mg Tablet PO 03/13/23 02:39 500 mg ONCE ONE Administration Medical Decision Making Differential Diagnosis Differential Diagnoses: The differential diagnosis associated with the presentation includes ( UTI, severe anemia, electrolyte abnormality, dehydration.) Admission/Observation Consideration of admission/observation: Escalation of care including admission/observation considered Lab Data MDM Lab Attestation statement: I reviewed the patient's lab results. 03/12/23 20:53 03/12/23 20:53 Labs: Lab Results 03/12/23 03/13/23 Range/Units 20:53 02:05 WBC 20.0 H (4.8-10.8) X10*3/uL RBC 3.41 L (4.20-5.50) X10*6/uL Hgb 10.2 L (12.0-16.0) g/dl Hct 31.7 L (37.0-47.0) % MCV 93.0 (80.0-98.0) fL MCH 29.9 (27.0-33.0) pg MCHC 32.2 (31.0-35.0) g/dl RDW 14.2 (11.0-16.0) % Plt Count 659 H D (160-400) X10*3/uL MPV 8.6 L (9.4-12.3) fL Immature Gran % (Auto) 2.5 H (0.0-0.4) % Neut % (Auto) 79.4 H (45-73) % Lymph % (Auto) 9.5 L (20-40) % [place] % (Auto) 7.1 (2-11) % Eos % (Auto) 1.1 (0-4) % Baso % (Auto) 0.4 (0-2) % Lymph # (Auto) 1.9 (1.2-4.9) X10*3/uL [place] # (Auto) 1.4 H (0.1-1.2) X10*3/uL Eos # (Auto) 0.2 (0.0-0.4) X10*3/uL Baso # (Auto) 0.1 (0.0-0.2) X10*3/uL Abs Immat Gran (auto) 0.50 H (0.00-0.03) X10*3/uL Absolute Neuts (auto) 15.9 H (2.0-8.3) x10*3/uL Absolute Nucleated RBC 0.000 (0.0-0.012) X10*3/uL Nucleated RBC % (auto) 0.0 (0.0-0.2) /100WBC Sodium 140 (135-145) mmol/L Potassium 4.5 D (3.3-5.1) mmol/L Chloride 102 (96-108) mmol/L Carbon Dioxide 26 (22-29) mmol/L Anion Gap 17 (12-20) BUN 27 H (9-16) mg/dL Creatinine 1.37 (0.5-1.4) mg/dL Estim Creat Clear Calc 29.8 Estimated GFR 37 Random Glucose 119 H (60-115) mg/dL Lactic Acid 0.9 (0.5-2.0) mmol/L Calcium 10.0 D (8.4-10.2) mg/dL Total Bilirubin 0.3 (0.0-1.0) mg/dL AST 38 H (5-31) U/L ALT 32 H (0-31) U/L Alkaline Phosphatase 90 (39-117) U/L Total Protein 9.1 H (6.5-8.0) g/dL Albumin 3.0 L (3.5-5.0) g/dL Urine Color Dark Yellow Urine Appearance Turbid Urine pH 6.5 (5.0-9.0) Ur Specific [place] 1.020 (1.005-1.025) Urine Protein 100 (2+) H (Neg-Trace) mg/dL Urine Glucose (UA) Negative (Negative) mg/dL Urine Ketones Trace (Negative) mg/dL Urine Blood Negative (Negative) Urine Nitrite Positive H (Negative) Ur Leukocyte Esterase Moderate (2+) H (Negative) Urine RBC 3-5 H (0-2) /HPF Urine WBC >50 H (0-5) /HPF Urine WBC Clumps Present Ur Squamous Epith Cells 6-10 (0-2) /HPF Urine Bacteria 4+ (None Seen) Hyaline Casts 11-20 (0-2) /LPF Discharge Plan Discharge Clinical Impression: Acute UTI, Leukocytosis Patient Disposition: Home, Self-Care Instructions: Urinary Tract Infection in Older Adults (ED) Additional Instructions: follow-up PCP in 1 week. Prescriptions: New cefuroxime axetil 500 mg tablet 500 mg PO Q12H Qty: 14 0RF No Action atorvastatin 40 mg Tablet 40 mg PO BEDTIME sertraline 100 mg tablet 100 mg PO BID meclizine 25 mg tablet 25 mg PO BID montelukast 10 mg tablet 10 mg PO DAILY albuterol sulfate 90 mcg/actuation Hfa Aerosol Inhaler 2 puff INHALATION Q4-6H PRN (Reason: sob or Wheezing) ondansetron 4 mg Tablet,Disintegrating 4 mg PO Q6H PRN (Reason: Nausea) docusate sodium 100 mg Tablet 100 mg PO BID fluticasone propion-salmeterol [Advair HFA] 45-21 mcg/actuation Hfa Aerosol Inhaler 2 puff INHALATION BID cholecalciferol (vitamin D3) 25 mcg (1,000 unit) Tablet 25 mcg PO DAILY Eliquis 5 mg Tablet 5 mg PO BID cefuroxime axetil 500 mg tablet 500 mg PO Q12H Qty: 16 0RF metoprolol succinate 25 mg Tablet Extended Release 24 Hr 25 mg PO BID Qty: 60 1RF Protocol: Hold for SBP/HR < HOLD for SBP < : 90 HOLD for HR < : 60 furosemide 20 mg tablet 20 mg PO DAILY Qty: 30 1RF
[2023-03-13 01:27] VITALS: BP 116/54; PULSE 64; RESP 19; O2SAT 90
[2023-03-13 01:30] VITALS: BP 127/56; PULSE 61; RESP 20; TEMP 36.9; O2SAT 90
--- NOTE | 2023-03-13 02:07 | PC.NURSE ---
pt tolerated straight cath well 130 mL urine UA sent to lab. pt repositioned in bed warm blanket given. skin intact. rectal temp 98.5F.
[2023-03-13 02:17] LABS: Appearance Urine Turbid; Color Urine Dark Yellow; Glucose Urine UA Negative (Negative); Leukocyte Esterase Urine Moderate (2+) (Negative); Nitrite Urine Positive (Negative); PH 6.5 (5.0-9.0); UMIC TRIGGER UACC YES; Urine Blood Negative (Negative); Urine Ketones Trace mg/dL (Negative); Urine Protein 100 (2+) mg/dL (Neg-Trace)
[2023-03-13 02:28] LABS: Bacteria Urine 4+ (None Seen); UACC Culture Trigger YES; WBC Clumps Urine Present; WBC Urine >50 /HPF (0-5)
--- NOTE | 2023-03-13 03:38 | PC.NURSE ---
care assumed of patent at this time; pt is resting in stretcher comfortable. no apparent distress. resps are even and unlabored. bed is in lowest position. side rails are up, brakes are on.
[2023-03-13] MEDS: cefuroxime axetiL 500 MG TABLET PO (03:39)
[2023-03-13 06:45] VITALS: BP 113/58; PULSE 60; RESP 22; O2SAT 98
--- NOTE | 2023-03-13 07:01 | MHC.EDTECH ---
CALL OUT TO [facility] AT [phone] TO BOOK TRANSPORT FOR PT BACK HOME, ESTIMATED ETA GIVEN WAS [id number]
== END 2023-03-13 07:40 | disposition home or self-care (01) ==
PROVIDERS: Student in an Organized Health Care Education/Training Program; Emergency Provider Emergency Medicine
DX: N39.0 Urinary tract infection, site not specified (principal); D72.829 Elevated white blood cell count, unspecified; R53.1 Weakness; I69.351 Hemiplegia and hemiparesis following cerebral infarction affecting right dominant side; I69.320 Aphasia following cerebral infarction; I48.0 Paroxysmal atrial fibrillation; J44.9 Chronic obstructive pulmonary disease, unspecified; Z79.01 Long term (current) use of anticoagulants; Z79.899 Other long term (current) drug therapy
CPT/HCPCS: 36415; 51701; 80053; 81001; 83605; 85025; 87086; 99284; 99285

== ENCOUNTER 2023-04-29 13:24 | Outpatient (AMB) | payer MEDICARE, OTHER, SELFPAY ==
[2023-04-29 13:41] VITALS: BP 110/62; PULSE 64
--- NOTE | 2023-04-29 13:41 | A.OFFVIS_ITS ---
Intake Vital Signs 04/29/23 13:41 Height 5 ft 1 in BP 110/62 Blood Pressure Location Lt brachial Position Sitting Pulse 64 Pulse Source Pulse Oximeter Intake Visit Reasons[place] [facility] [place] () Assistant Teacher Required: No Events Intern: Events Intern Present Accompanied by: Daughter Allergies No Known Allergies [No Known Allergies*] Allergy (Verified 04/29/23 13:45) Medication List - Last Reconciled 04/29/23 by TORSTEN Pan albuterol sulfate 90 mcg/actuation 2 puffs inhalation Q4-6H PRN apixaban (Eliquis) 5 mg PO BID atorvastatin 40 mg PO BEDTIME cholecalciferol (vitamin D3) 25 mcg PO DAILY docusate sodium 100 mg PO BID fluticasone propion-salmeterol 45-21 mcg/actuation (Advair HFA) 2 puffs inhalation BID furosemide 20 mg PO DAILY meclizine 25 mg PO BID metoprolol succinate ER 25 mg See Protocol PO BID montelukast 10 mg PO DAILY ondansetron 4 mg PO Q6H PRN sertraline 100 mg PO BID HPI [facility] [place] () HPI Details Patsy is an 83-year-old female with past medical history CVA 2014, obstructive sleep apnea untreated, who was not recently admitted to [facility] with acute UTI, metabolic encephalopathy, sepsis. She was found to have paroxysmal atrial fibrillation which was treated for heart rate control and converted back to sinus rhythm. She then had episodes of SVT and was started on metoprolol. She had been on Eliquis which was initially held due to labial hematoma, then restarted. She is now in [facility] for rehab and she presents here for follow-up. Today she reports that she has been doing generally well. She denies having any heart palpitations or known elevated heart rates. She denies any chest discomfort at rest or with activity. No concerning shortness of breath, presyncope, syncope, falls. No PND, orthopnea. She has chronic lower leg edema which she says is recently unchanged. She uses a wheelchair most of the time and tells me she is only walking short distances with walker and assistance. She has residual weakness from her prior CVA. She hopes to go back to [place] upon the completion of rehab. Her daughter is present. [facility] Medical History (Updated 04/29/23 @ 15:29 by TORSTEN Pan) CARON (obstructive sleep apnea) COPD (chronic obstructive pulmonary disease) Anxiety disorder History of stroke Social History Alcohol intake: former Patient Tobacco Use Status: Former Tobacco user Advance Directives Date on File: 02/10/23 service: No Review of Systems Const All systems reviewed & are unremarkable except as noted in HPI and below ENT Denies dizziness Card Denies chest pain, Denies chest pain at rest, Denies chest pain with activity, Denies rapid heart rate, Denies pedal edema, Denies edema, Denies leg edema, Denies lightheadedness, Denies palpitations, Denies dyspnea, Denies dyspnea on exertion and Denies orthopnea Resp Denies cough, Denies dyspnea and Denies dyspnea on exertion GI Denies hematochezia and Denies change in stool character Musc Reports abnormal gait, Reports limited range of motion, Denies muscle cramps, De nies muscle weakness, Denies numbness, Denies radiating pain into limb, Denies stiffness and Denies tingling Neuro Reports abnormal gait, Denies dizziness, Denies numbness and Denies tingling Endo Denies palpitations Physical Exam Vital Signs: Last Vital Signs Pulse 64 04/29/23 13:41 BP 110/62 04/29/23 13:41 Const Other: sitting in wheelchair General: cooperative, comfortable and no acute distress Orientation/consciousness: patient oriented x3 Neck Neck: Yes normal visual inspection Resp Effort & Inspection: normal respiratory effort Auscultation: clear to auscultation bilaterally, no crackles, no rales, no rhonchi and no wheezes Cardio Jugular venous distension: no JVD Rate: regular rate Rhythm: regular rhythm Heart sounds: S1 normal heart sound present, S2 normal heart sound present, no murmurs and no rubs Neuro General: patient oriented x3 Extrem General: Yes normal to inspection and No no pedal edema Psych Appearance: grossly normal Mental Status: mental status grossly normal Speech and movement: Normal speech and movement present Assessment & Plan Assessment & Plan (1) PAF (paroxysmal atrial fibrillation): Code(s): I48.0 - Paroxysmal atrial fibrillation Plan: New finding of atrial fibrillation during hospital admission for UTI, sepsis and metabolic encephalopathy. She was treated for heart rate control and converted back to sinus rhythm. During her admission she did have episodes of SVT as well. All asymptomatic. Echocardiogram done 02/15/2023 showed EF 60-65%, mildly calcified aortic valve, severe posterior mitral annular calcification, grade 1 diastolic dysfunction. She was put on metoprolol XL 50 mg daily. She had already been on Eliquis for anticoagulation due to prior CVA. Her Eliquis was initially held due to labial hematoma then restarted prior to discharge. Today she reports she has been doing well since her hospital discharge. She denies having any heart palpitations or elevated heart rates. Pulse is very regular on examination today, pulse rate 64. She does not recall feeling elevated heart rates when she was hospitalized. Diagnosis of atrial fibrillation and stroke risk with AFib reviewed with her. Will have her continue on current med management with metoprolol and Eliquis. Eliquis dose of 5 mg b.i.d. is appropriate for her weight and creatinine. Recommend by annual labs including kidney function and CBC. Cardiology follow-up in 6 months, sooner if needed (2) SVT (supraventricular tachycardia): Code(s): I47.10 - Supraventricular tachycardia, unspecified Plan: As above (3) Congestive heart failure: Code(s): I50.9 - Heart failure, unspecified Plan: Mild Congestive heart failure during last hospital admission. Echocardiogram does show grade 1 diastolic dysfunction. On exam today she does not appear fluid overloaded. She continues on low-dose Lasix. Signs and symptoms of heart failure reviewed. (4) CARON (obstructive sleep apnea): Code(s): G47.33 - Obstructive sleep apnea (adult) (pediatric) Plan: Patient states she had a CPAP mask in the past but she would pull it off so they ended taking it away. She is not currently being treated for sleep apnea. Plan Time spent on chart review, documentation, interview and assessment Coding Level of Care Code Est Pt Level 4 (91825) Diagnoses PAF (paroxysmal atrial fibrillation) I48.0 SVT (supraventricular tachycardia) I47.10 Congestive heart failure I50.9 CARON (obstructive sleep apnea) G47.33 Time Spent (min) 30
== END 2023-04-29 14:27 | disposition home or self-care (01) ==
PROVIDERS: Visit Provider Nurse Practitioner Family
DX: I48.0 Paroxysmal atrial fibrillation (principal); I47.10 Supraventricular tachycardia, unspecified; I50.9 Heart failure, unspecified; G47.33 Obstructive sleep apnea (adult) (pediatric)
CPT/HCPCS: 99214

== ENCOUNTER → 2023-04-29 13:24 | Outpatient (BNVA) | payer MEDICARE, OTHER, SELFPAY | PROVIDERS: Visit Provider Nurse Practitioner Family | DX: I48.0 Paroxysmal atrial fibrillation (principal); I47.10 Supraventricular tachycardia, unspecified; I50.9 Heart failure, unspecified; G47.33 Obstructive sleep apnea (adult) (pediatric); Z86.73 Personal history of transient ischemic attack (TIA), and cerebral infarction without residual deficits; Z79.01 Long term (current) use of anticoagulants; Z79.899 Other long term (current) drug therapy | CPT/HCPCS: 99212 ==

== ENCOUNTER 2023-10-10 12:59 | Outpatient (AMB) | payer MEDICARE, OTHER, SELFPAY ==
--- NOTE | 2023-10-10 13:00 | MHC.OFFVIS ---
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 Accompanied by: Employee Allergies No Known Allergies [No Known Allergies*] Allergy (Verified 04/29/23 13:45) Medication List - Last Reconciled 10/10/23 by Reza Cee MD albuterol sulfate 90 mcg/actuation 2 puffs inhalation Q4-6H PRN apixaban (Eliquis) 5 mg PO BID atorvastatin 40 mg PO BEDTIME cholecalciferol (vitamin D3) 25 mcg PO DAILY docusate sodium 100 mg PO BID fluticasone propion-salmeterol 45-21 mcg/actuation (Advair HFA) 2 puffs inhalation BID furosemide 20 mg PO DAILY meclizine 25 mg PO BID metoprolol succinate ER 25 mg See Protocol PO BID montelukast 10 mg PO DAILY ondansetron 4 mg PO Q6H PRN sertraline 100 mg PO BID HPI Comments Details: Pleasant 83 year female who is here for follow-up. She was seen in the hospital in 02/18/2023 when she presented withinary tract infection and developed paroxysmal atrial she was treated with beta-kenzie and later was noticed to have runs of supraventricular tachycardia. Was off apixaban at that time due to labial hematoma. 10/10/2023: She returns for follow-up today. She is in sinus rhythm by EKG. No palpitations. She has cough and is seeing her PCP today. Taking meds regularly. [facility] Medical History (Updated 04/29/23 @ 15:29 by TORSTEN Pan) CARON (obstructive sleep apnea) COPD (chronic obstructive pulmonary disease) Anxiety disorder History of stroke Social History Alcohol intake: former Patient Tobacco Use Status: Former Tobacco user Advance Directives Date on File: 02/10/23 service: No Review of Systems Const Denies chills, Denies fatigue, Denies fever(s), Denies frequent falls, Denies weakness, Denies weight gain and Denies weight loss ENT Denies dizziness Card Denies chest pain, Denies leg edema, Denies lightheadedness, Denies palpitations, Denies dyspnea and Denies dyspnea on exertion Resp Denies cough, Denies dyspnea and Denies dyspnea on exertion GI Denies hematochezia Musc Denies abnormal gait, Denies muscle weakness, Denies numbness, Denies radiating pain into limb and Denies tingling Neuro Denies abnormal gait, Denies dizziness, Denies frequent falls, Denies numbness, Denies tingling and Denies weakness Endo Denies fatigue and Denies palpitations Physical Exam Vital Signs: Last Vital Signs Pulse 57 10/10/23 13:02 BP 110/60 10/10/23 13:02 BMI result Body Mass Index 37.4 GENERAL APPEARANCE: Comfortable. NECK: no carotid bruit, no significant JVD. SKIN: no suspicious lesions, warm and dry. HEART: no murmurs, regular rate and rhythm. LUNGS: Clear to auscultation. ABDOMEN: soft, nontender. EXTREMITIES: no edema. PERIPHERAL PULSES: equal. NEUROLOGIC: No gross deficits, AAO X 3 Office Procedures EKG Details: Sinusradycardia 57 beats per minute, left axis deviation, left ventricular hypertrophy, nonspecific ST-T changes. QRS duration 92 milliseconds QTC 443 milliseconds. [id number], Complete Assessment & Plan Assessment & Plan (1) PAF (paroxysmal atrial fibrillation): Code(s): I48.0 - Paroxysmal atrial fibrillation Category: Medical Plan Pleasant 83 female with PAF. She had PAF and SVT while she was inpatient at [facility] [place] [facility] for Urosepsis. Clinically stable, denying any palpitations. ECG-sinus rhythm continue same medications. f/u 6 months. Coding Level of Care Code Est Pt Level 4 (76066) Diagnoses PAF (paroxysmal atrial fibrillation) I48.0 CPT Codes EKG - CPT: 84097-[id number], Complete ([id number])
[2023-10-10 13:02] VITALS: BP 110/60; PULSE 57; BMI 37.4
== END 2023-10-10 13:35 | disposition home or self-care (01) ==
PROVIDERS: Visit Provider Internal Medicine Cardiovascular Disease
DX: I48.0 Paroxysmal atrial fibrillation (principal)
CPT/HCPCS: 93010; 99214

== ENCOUNTER → 2023-10-10 12:59 | Outpatient (BNVA) | payer MEDICARE, OTHER, SELFPAY | PROVIDERS: Visit Provider Internal Medicine Cardiovascular Disease | DX: I48.0 Paroxysmal atrial fibrillation (principal) | CPT/HCPCS: 93005; 99212 ==

== ENCOUNTER 2024-06-21 14:33 | Outpatient (AMB) | payer MEDICARE, OTHER, SELFPAY ==
[2024-06-21 14:35] VITALS: BP 114/62; PULSE 62
--- NOTE | 2024-06-21 14:35 | A.OFFVIS_ITS ---
Vital Signs 06/21/24 14:35 Height 5 ft 1 in BP 114/62 Blood Pressure Location Lt brachial Position Sitting Pulse 62 Pulse Source Pulse Oximeter Intake Visit Reasons: 6 mth f/up Handle Finisher Required: No Custodial Services Manager: Custodial Services Manager Present Allergies No Known Allergies [No Known Allergies*] Allergy (Verified 06/21/24 14:38) Medication List - Last Reconciled 06/21/24 by TORSTEN Pan albuterol sulfate 90 mcg/actuation 2 puffs inhalation Q4-6H PRN apixaban (Eliquis) 5 mg PO BID atorvastatin 40 mg PO BEDTIME cholecalciferol (vitamin D3) 25 mcg PO DAILY docusate sodium 100 mg PO BID fluticasone propion-salmeterol 45-21 mcg/actuation (Advair HFA) 2 puffs inhalation BID furosemide 20 mg PO DAILY meclizine 25 mg PO BID metoprolol succinate ER 25 mg See Protocol PO BID montelukast 10 mg PO DAILY ondansetron 4 mg PO Q6H PRN sertraline 100 mg PO BID HPI HPI 6 mth f/up: Details: Patsy is an 84-year-old female with past medical history CVA 2014, obstructive sleep apnea untreated, who was admitted [facility] 01/2023 with acute UTI, metabolic encephalopathy, sepsis. She was found to have paroxysmal atrial fibrillation which was treated for heart rate control and converted back to sinus rhythm. She then had episodes of SVT and was started on metoprolol. She had been on Eliquis which was initially held due to labial hematoma, then restarted. She has had no known recurrent AFib since that time. She now presents here for follow-up. Today she reports that she has been doing generally well since her last visit in September. She has felt brief heart palpitations lasting seconds. No sustained rapid or irregular rates. She is mostly sedentary and uses a wheelchair. She says she only ambulates a few steps with assistance. She denies any chest discomfort at rest or with activity. No concerning shortness of breath, presyncope, syncope, falls. No PND, orthopnea. She has chronic lower leg edema which she says is recently unchanged. She has residual weakness from her prior CVA. [facility] Medical History CARON (obstructive sleep apnea) COPD (chronic obstructive pulmonary disease) Anxiety disorder History of stroke Social History Alcohol intake: former Patient Tobacco Use Status: Former Tobacco user Advance Directives Date on File: 02/10/23 service: No Review of Systems Const All systems reviewed & are unremarkable except as noted in HPI and below ENT Denies dizziness Card Denies chest pain, Denies chest pain at rest, Denies chest pain with activity, Reports rapid heart rate (has felt a few times - lasting seconds), Denies pedal edema, Denies edema, Denies leg edema, Denies lightheadedness, Denies palpitations, Denies dyspnea, Denies dyspnea on exertion and Denies orthopnea Resp Denies cough, Denies dyspnea and Denies dyspnea on exertion GI Denies hematochezia and Denies change in stool character Musc Reports abnormal gait (in wheelchair), Denies limited range of motion, Denies muscle cramps, Reports muscle weakness, Denies numbness, Denies radiating pain into limb, Denies stiffness and Denies tingling Neuro Reports abnormal gait (in wheelchair), Denies dizziness, Denies numbness and Denies tingling Endo Denies palpitations Physical Exam Vital Signs: Last Vital Signs Pulse 62 06/21/24 14:35 BP 114/62 06/21/24 14:35 Const Other: in wheelchair General: cooperative, healthy appearing, comfortable and no acute distress Orientation/consciousness: patient oriented x3 Resp Effort & Inspection: normal respiratory effort Auscultation: clear to auscultation bilaterally, no rales, no rhonchi and no wheezes Cardio Rate: regular rate Rhythm: regular rhythm Heart sounds: S1 normal heart sound present, S2 normal heart sound present, no gallops, no murmurs and no rubs Neuro General: patient oriented x3 Extrem Other: soft swelling and discoloration to skin of lower extremeties General: No calf tenderness Psych Appearance: grossly normal Mental Status: mental status grossly normal Speech and movement: Normal speech and movement present Office Procedures EKG Details: Today, read by me Sinus bradycardia, with sinus arrythmia, mod voltage criteria for LVH, rate 59, QTc 449ms [id number], Complete Assessment & Plan Assessment & Plan (1) PAF (paroxysmal atrial fibrillation): Code(s): I48.0 - Paroxysmal atrial fibrillation Category: Medical Plan: New finding of atrial fibrillation during hospital admission 01/2023 for UTI, sepsis and metabolic encephalopathy. She was treated for heart rate control and converted back to sinus rhythm. During her admission she did have episodes of SVT as well. All asymptomatic. Echocardiogram done 02/15/2023 showed EF 60- 65%, mildly calcified aortic valve, severe posterior mitral annular calcification, grade 1 diastolic dysfunction. She was put on metoprolol XL 50 mg daily. She had already been on Eliquis for anticoagulation due to prior CVA. She has had no known documented recurrent AFib or SVT since that time. Today she reports that she will feel a rare rapid heartbeat, lasting seconds. She has had no sustained rapid or irregular rates causing concern. EKG done today is showing sinus bradycardia with sinus arrhythmia, rate 59. Blood pressure 114/62. Will continue metoprolol at current dose. She is currently on metoprolol succinate 25 mg b.i.d.. No bleeding issues reported. No recent labs for review, will check with her PCP. Continue Eliquis at current dose. Cardiology follow-up 6 months, sooner if needed (2) SVT (supraventricular tachycardia): Code(s): I47.10 - Supraventricular tachycardia, unspecified Category: Medical Plan: As above (3) Congestive heart failure: Code(s): I50.9 - Heart failure, unspecified Category: Medical Plan: Mild Congestive heart failure during last hospital admission. Echocardiogram does show grade 1 diastolic dysfunction. On exam today she does not appear fluid overloaded. She continues on low-dose Lasix. Signs and symptoms of heart failure reviewed. (4) CARON (obstructive sleep apnea): Code(s): G47.33 - Obstructive sleep apnea (adult) (pediatric) Category: Medical Plan: Patient states she had a CPAP mask in the past but she would pull it off so they ended taking it away. She is not currently being treated for sleep apnea. Plan Time spent on chart review, documentation, interview and assessment Coding Level of Care Code Est Pt Level 3 (52018) Complex EM visit Add On G2211 Diagnoses PAF (paroxysmal atrial fibrillation) I48.0 SVT (supraventricular tachycardia) I47.10 Congestive heart failure I50.9 CARON (obstructive sleep apnea) G47.33 CPT Codes EKG - CPT: 98238-[id number], Complete ([id number]) Time Spent (min) 24
--- OUTSIDE RECORDS SUMMARY | 2024-06-21 15:44 | XMS_ITS | Data Portability ---
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 [email or web address] Not available 11/28/2015 10:10:36 05/08/2017 05/08/2017 pt to discharge to [facility] next week. [email or web address] Not available 05/08/2017 15:07:04 Plan of Treatment Reminders Order Date Submit Date Provider Last Modified By Organization Details Last Modified Time Details Appointments None record ed. Lab None record ed. Referral None record ed. Procedures None record ed. Surgeries None record ed. Imaging None record ed. Medication Orders None record ed. Patient TargetsNo targets recorded. Patient InstructionsNo instructions recorded. Reason for Referral None Reported. Problems Name Problem SNOMED Code Status Onset Date Resolution Date Notes Provider Name and Address Organization Details Recorded Time Disorder of vitamin B12 [id number] MELI Gustafson [address], [address], [place], [address], [facility] [employer] [facility] 6 11:07:29 Hyperlipid emia [id number] South Holm MD [address], [address], [place], [address], [facility] 6 15:34:18 Dysphagia [id number] South Holm MD [address] [facility] [address], [address], [place], [address], [facility] 6 15:34:18 Anxiety 62982768 MELI Gustafson [address] [facility], [address], [place], [address], [facility] 6 11:07:29 Depressive disorder 90014933 Active Eduardo Holm MD [address] [facility], [address], [place], [address], [facility] 6 15:34:18 Constipati on 13527116 Active MELI Mendenhall [address], [address], [place], [address], [facility] 6 11:07:29 Cerebrovas cular accident 747723238 Active hemiparesi s Eduardo Holm MD [address] [facility], [address], [place], [address], [facility] 6 15:34:18 Kidney stone 52864066 Active 2017 Shama Ramirez MD [address] [facility], [address], [place], [address], [facility] 8 15:00:36 Hydronephr osis 48321964 Active 2017 Shama Ramirez MD [address] [facility], [address], [place], [address], [facility] 8 15:01:40 Chronic obstructiv e pulmonary disease 25670960 Active 2017 Shama Ramirez MD [address] [facility], [address], [place], [address], [facility] 8 15:10:14 Vertigo 937640946 Active 2017 Shama Ramirez MD [address] [facility], [address], [place], [address], [facility] 8 15:10:58 Muscle weakness 25000514 Active 2017 Shama Ramirez MD [address] [facility], [address], [place], [address], [facility] 8 15:34:57 Problem Notes None recorded. Procedures Surgical History Date Name Laterality Status Provider Name and Address Organization Details Recorded Time Ureter endoscopy & treatment completed MELI Tinsley [address], [address], [place], [address], [employer] [facility] 06/07/2017 11:01:09 Pyelotomy w/removal calculus completed Mary Anne MorrisMELI [address] [facility], [address], [place], [address], [facility] 06/07/2017 11:01:34 Imaging Results None recorded. Procedure Notes None recorded. Medical Equipment None Reported. Allergies No known drug allergies Vitals Date Recorded Heart rate Respiratory rate Body temperature Oxygen saturation Oxygen saturation in Arterial blood by Pulse oximetry Systolic blood pressure Diastolic blood pressure Provider Name and Address Organization Details Last Updated DateTime 8 72 /min 16 /min 98.8 [degF] 92 % 92 % 116 mm[Hg] 62 mm[Hg] Shama Ramirez MD [address], [address], [place], [address], [facility] 8 14:46:58 Social History Question Answer Notes LastModified by Organizat ion Details LastModified Time Tobacco Smoking Status Former Smoker Not Available [facility] 02/26/2020 03:13:02 Do You Have An Advance Directive? Yes [id number] Information not available 02/26/2020 What Is Your Level Of Alcohol Consumption? None [id number] Information not available 02/26/2020 How Much Tobacco Do You Chew? None [id number] Information not available 02/26/2020 How Many Days In The Past Year Have You Had A Heavy Drinking Consumption (4+ Female, 5+ Male)? 0 [email or web address] Information not available 05/08/2017 Do You Have A Medical Power Of Director Manufacturing Engineering? No [id number] Information not available 02/26/2020 What Was The Date Of Your Most Recent Tobacco Screening? 06/07/2017 [id number] Information not available 02/26/2020 At What Age Did You Start Smoking Tobacco? 16 [id number] Information not available 02/26/2020 Has Tobacco Cessation Counseling Been Provided? No [id number] Information not available 02/26/2020 How Many Years Have You Smoked Tobacco? 40 Smoked 1 Ppd [id number] Information not available 02/26/2020 Sex: Unknown Functional Status None recorded. Mental Status None recorded. Family History Nothing Reported. Medical History Condition Response Anxiety Disorder Y Stroke Y Depression Y Difficulty Swallowing Y High Cholesterol Y Gynecological HistoryNo gynecological history recorded. Obstetrics History GPAL:G 0 P 0 0 0 0 Past Encounters Encounter ID Performer Location Encounter Start Date Encounter Closed Date Diagnosis/Indication Diagnosis SNOMED-CT Code Diagnosis ICD10 Code Diagnosis Note [id number] [place] [address] 02/13/2015 09:43:35 03/14/2015 03:51:04 Hyperlipidemia 40649677 E78.5 on Lipitor, will order lipids, LFTs for 02/14 Disorder o f vitamin B12 241145099 D51.1 on supplement Depressive disorder 3548 9007 F32.9 will continue to monitor mood, can re-eval in 2 weeks for possible increase in Zoloft dose. Dysphagia 96673425 R13.1 0 ground diet. Constipation 46442592 K5 9.00 on Colace and senna. monitor bowels. Cerebrovas cular accident 597447069 I63.9 supportive care. Anxiety 18352774 F41.9 on lorazepam. [id number] Eduardo Holm MD [address] [place] [address] 04/10/2015 14:46:21 04/15/2015 03:48:21 Cerebrovascular accident 985495823 I63.9 speech difficulty at baseline total care pt most likely at new baseline stable on Xarelto mood more stable repeat psych eval prn Dysphagia 41396446 R13.1 0 monitor and adjust diet as needed Hyperlipidemia 10224206 E78.5 LDL=77 good control on statin Anxiety 76060149 F41.9 stable on Xanax prn continue Zoloft 50 mg po qd 3727 MELI Mendenhall [address] [place] [address] 05/12/2015 10:53:51 05/14/2015 03:48:49 Cerebrovascular accident 863235174 I63.9 supportive care. speech difficulty at baseline total care pt most likely at new baseline stable on Xarelto mood more stable repeat psych eval prn 05/12 - as per dtr and pts wishes we will switch her back to coumadin once the xarelto runs out in 10 days. will bridge with lovenox and check daily INRs till >2 then will dc lovenox. Anxiety 09188599 F41.9 on lorazepam. stable on Xanax prn continue Zoloft 50 mg po qd Dysphagia 85376444 R13.1 0 monitor and adjust diet as needed Hyperlipidemia 54606614 E78.5 LDL=77 good control on statin [id number] M[address] [place] [address] 06/11/2015 10:53:21 06/13/2015 03:49:12 Hyperlipidemia 10982200 E78.5 LDL=77 good control on statin Disorder o f vitamin B12 723156686 D51.1 on supplement Depressive disorder 3548 9007 F32.9 continue current dose of zoloft Dysphagia 95641744 R13.1 0 monitor and adjust diet as needed Constipation 73291297 K5 9.00 on Colace and senna. monitor bowels. Cerebrovas cular accident 331460049 I63.9 supportive care. speech difficulty at baseline total care pt most likely at new baseline stable on Xarelto mood more stable repeat psych eval prn 05/12 - as per dtr and pts wishes we will switch her back to coumadin once the xarelto runs out in 10 days. will bridge with lovenox and check daily INRs till >2 then will dc lovenox. Anxiety 57290799 F41.9 on lorazepam. stable on Xanax prn continue Zoloft 50 mg po qd [id number] Eduardo Holm MD [address] [place] [address] 08/05/2015 15:29:12 08/09/2015 03:48:37 Cerebrovascular accident 839608350 I63.9 speech difficulty at baseline has improved with therapy mood more stable repeat psych eval prn on Coumadin monitor and titrate dose Hyperlipidemia 98049446 E78.5 good control on statin repeat lipids at annual Dysphagia 64375332 R13.1 0 monitor and adjust diet as needed Depressive disorder 3548 9007 F32.9 significan tly improved patient states she is adjusting to her new reality [id number] [place] [address] 08/22/2015 08:19:28 08/27/2015 03:49:40 Cerebrovascular accident 887522677 I63.9 hemiparesi s, supportive care, cont pt/ot for now. pt is on coumadin, monitor INR. added cbc, cmp and lipids to lab on 08/24. Depressive disorder 3548 9007 F32.9 cont zoloft, monitor mood Disorder o f vitamin B12 701811822 D51.1 on b 12 injections for life Anxiety 52937187 F41.9 onxanax sched and prn, mood stable Hyperlipidemia 46792891 E78.5 on statin Dysphagia 01424184 R13.1 0 no problem with po intake, on regular diet. [id number] MELI [address] [place] [address] 10/03/2015 09:13:03 10/08/2015 03:47:54 Cerebrovascular accident 062834634 I63.9 supportive care, is on coumadin, monitor INR. cont with any pt/ot she is able to get. Depressive disorder 3548 9007 F32.9 cont zoloft, ,monitor mood. Disorder o f vitamin B12 796376735 D51.1 on B 12 injections monthly Anxiety 68554702 F41.9 has sched and prn xanax though isn't using the prn at this point. Hyperlipidemia 47622529 E78.5 cont statin. [id number] M[address] [place] [address] 11/10/2015 09:07:23 11/12/2015 03:48:05 Cerebrovascular accident 775563838 I63.9 pt cannot ambulate due to right hemiparesi s and balance issues and so needs a wheelchair for mobility. Shoulder pain 30332493 M 25.512 I talked with OT and they will use ultrasound in her left upper trapezius muscles. if this doesn't help then she will be referred to ortho as this is her dominant arm. [id number] M[address] [place] [address] 11/28/2015 09:57:18 12/02/2015 03:48:18 Cerebrovascular accident 060505734 I63.9 pt cannot ambulate due to right hemiparesi s and balance issues and so needs a wheelchair for mobility. pt also needs a hospital bed with bed side rails to help her with bed mobility to self position and raise and lower head of bed to avoid bed sores. Depressive disorder 3548 9007 F32.9 cont zoloft, ,monitor mood. Disorder o f vitamin B12 585947786 D51.1 on B 12 injections monthly Anxiety 29488348 F41.9 has sched and prn xanax though isn't using the prn at this point. Hyperlipidemia 05018158 E78.5 cont statin. [id number] Shama Ramirez MD [address] [place] [address] 05/08/2017 14:28:10 05/11/2017 11:53:09 Kidney stone 58689357 N20.0 S/P removal of left renal stone that had been causing obstructio n and hydronephr osis. Now resolved. To f/u with Dr. Mahmood for stent removal in 1-2 weeks. Was on prophylact ic abx for 24 hrs. after procedure. Monitor for any signs of infection or reccurent stones. Hydronephrosis 79961979 N13.2 Obstructio n resolved, will have repeat u/s to ensure resolution of hydronephr osis, at f/u with Dr. Mahmood. Hemiplegia and/or hemiparesis following stroke 0558342275 9107 I69.351 Function has much improved with continued private PT services since d/c from here in 12/15. Still with right inattentio n. Needs assist of 1 for transfers and ambulation . Depressive disorder 3548 9007 F32.9 Mood stable on sertraline on 50 mg. qd. NEG consult prn. Disorder o f vitamin B12 052736765 D51.1 Continue B 12 injections monthly Anxiety 57669145 F41.1 As above, no longer on lorazepam. May need prn while here [facility] t. Monitor. Hyperlipidemia 98502381 E78.5 Continue atorvastat in 40 mg qd. Lipid profile with PCP. Chronic ob structive pulmonary disease 41693075 J43.1 Possible mild COPD with long smoking hx. Continue albuterol prn. Follow Vertigo 403205718 R42 Chronic since CVA. This is most bothersome sx to her. Continue meclizine 25 mg TID Muscle weakness 71518100 M62.81 Deconditio arilne with regression to needing 2 assist. Needs PT/OT for strengthen ing and function to allow return to assisted living. Dysphagia 77769259 I69.3 91 Continue adapted diet and SCIENTIST ENGINEER as needed. [id number] Eduardo Holm MD [address] [facility] [place] [address] 05/13/2017 12:51:45 05/16/2017 14:59:37 Vertigo 241065128 R42 states dizziness with all movementup set that it has not improvedad ded ativan 0.5 mg bid and hold for sedationad ded ativan 0.5 mg qd prn breakthrou gh anxietywas on ativan prior and it was found to help with the dizzinessm onitor vertigo and for improvemen t Cerebrovas cular accident 758641720 I63.8 still working with PT/[place] coreas to go back [facility] next week per patientups et that she is dizzy when trying to do therapyati van addedmonit or agree with eval and a/p [id number] Mary Anne Morris, [place] [address] [place] [address] 06/07/2017 10:16:58 06/09/2017 10:58:30 Kidney stone 19075757 N20.0 s/p removal and stent removal. . Follow up with urologist. Muscle weakness 67246437 M62.81 hemiparesi s right dominant side s/p CVA Continue PT and OT after discharge. Continue coumadin daily. Monitor INR and adjust accordingl y. Vertigo 599404577 R42 chronic s/p CVA Meclizine 25 mg TID. Depressive disorder 3548 9007 F33.1 stable on sertraline 50 mg daily. Follow up with PCP after discharge. Chronic ob structive pulmonary disease 07346958 J44.9 J41.8 Continue albuterol HFA inhaler 2 puffs q 4 hrs prn F/u with PCP after discharge. Dysphagia 09510028 I69.9 91 Continue adapted diet. Hyperlipidemia 26405954 E78.2 Continue atorvastat in 40 mg daily. Follow up with PCP after d/c Anxiety 01284834 F41.1 lorazepam 0.5 mg daily prn. Follow up with PCP after discharge. Constipation 93245957 K5 9.01 Colace 100 mg BID Follow up with PCP after discharge. [id number] MELI Tinsley [address] [place] [address] 06/09/2017 09:59:26 06/13/2017 14:01:25 Kidney stone 17103038 N20.0 s/p removal and stent removal. . Follow up with urologist. Muscle weakness 24387294 M62.81 hemiparesi s right dominant side s/p CVA Continue PT and OT after discharge. Continue coumadin daily. Monitor INR and adjust accordingl y.. coumadin 6 mg daily and recheck INR 06/13/16 Follow up with PCP and neurologis t. Hyperlipidemia 33135552 E78.2 Continue atorvastat in 40 mg daily. Follow up with PCP after d/c Anxiety 70208466 F41.1 lorazepam 0.5 mg daily prn. Follow up with PCP after discharge. Depressive disorder 3548 9007 F33.1 stable on sertraline 50 mg daily. Follow up with PCP after discharge. Chronic ob structive pulmonary disease 05834097 J44.9 J41.8 Continue albuterol HFA inhaler 2 puffs q 4 hrs prn F/u with PCP after discharge. Constipation 38331001 K5 9.01 Colace 100 mg BID Follow up with PCP after discharge. consider adding miralax if not improving. Vertigo 753857163 R42 chronic s/p CVA Meclizine 25 mg TID. Dysphagia 95211795 I69.9 91 Continue adapted diet. Health Concerns Section Related Observation LastModified by Organization Detai ls LastModified Time None Recorded Concern Status LastModified by Organization Details LastModified Time None Recorded Advance Directives Directive Y: Payers Encounter Date Sequence Insurance Name Policy Number Policy Vásquez Covered Member ID Vásquez Member ID Guarantor Name 11/28/2015 2 [facility] - [employer] [id number] Patsy Frey [id number] Ariane Comfort 11/28/2015 1 [place]: [employer] Patsy Frey [id number] Ariane Comfort 05/08/2017 2 [facility] - UNICN[employer] [id number] Patsy Fortuneann [id number] Ariane Comfort 05/08/2017 1 [place] [facility] Patsy Frey [id number] Ariane Comfort 05/13/2017 2 [facility] [id number] Patsy Frey [id number] Ariane Comfort 05/13/2017 1 [place] [facility] Patsy Frey [id number] Ariane Comfort 06/07/2017 2 [facility] - UNICARE [id number] Patsy Frey [id number] Ariane Comfort 06/07/2017 1 [place] [facility] Patsy Frey [id number] Ariane Comfort 06/09/2017 2 [facility] - UNICARE [id number] Patsy Frey [id number] Ariane Comfort 06/09/2017 1 [place] [facility] Patsy Frey [id number] Ariane Comfort Notes Date Note Type Note Provider Name and Address Organization Details Recorded Time 11/28/2015 text/html pt to be dischar ged to [facility] on 12/02 to assisted living with help. pt will need a hospital bed for mobility. pt is a one person transfer from wheelchair to bed. pt has made steady progress since she was admitted here in july 2014. she remains with dizziness pretty much constantly, takes antivert TID. says she continues to have difficulty reading. goes to vision therapy weekly. Judie Su, FURNACE CHECKER [address], [address], [place], [address], [facility] 11/28/2015 12:31:33 05/08/2017 text/html This is a 77 yo woman who is known to us from previous admission in 2014-. She was here custodial for CVA recovery and then improved enough to be transferred to [facility]. She is now here s/p ureteroscopy/pyelos copy with ureteroscopic stone removal for left renal stone. She was kept overnight due to high risk for sepsis because of chronic bacteriuria. Daughter requested rehab stay prior to return to assisted living, because of deconditioning, now requiring 2 assist, where previously she only needed 1 assist. Her PMH includes s/p CVA in 2015, HLD, dysphagia, depression/anxiety and vertigo. She reports she might have had a little pneumonia in the hospital and that's when they started the albuterol. But she hasn't needed it. No notes about this in d/c summary. Shama Ramirez MD [address], [address], [place], [address], [facility] [employer] [facility] 05/08/2017 15:36:27 05/13/2017 text/html A 77 year old female being seen for an acute rounding visit. Physical therapy requesting patient receive ativan to assist with dizziness. She was taking it prior with good effect per previous physician notes. Medical history: vertigo, anxiety, hyperlipidemia, CVA, COPD and kidney stone. Eduardo Holm MD [address], [address], [place], [address], [facility] 05/14/2017 15:28:52 06/07/2017 text/html A 77 year old female being seen for routine rounding visit. Past Medical history: vertigo, anxiety, hyperlipidemia, CVA, COPD and kidney stone. She was previously residing at [facility] but came here after her ureteroscopy/ pyeloscopy with ureteroscopic stone removal left renal stone. She progressed well through PT and OT to increase her strength after deconditioning. She is going back to [facility] on 06/09 and wiil get services from [facility]. She will be transported by [facility]. She is not having pain and is moving her bowels ok. MELI Tinsley [address] [facility], [address], [place], [address], [facility] 06/07/2017 11:02:12 06/09/2017 text/html A 77 year old female being seen for discharge today. Past Medical history: vertigo, anxiety, hyperlipidemia, CVA, COPD and kidney stone. She was previously residing at [facility] but came here after her ureteroscopy/ pyeloscopy with ureteroscopic stone removal left renal stone. She progressed well through PT and OT to increase her strength after deconditioning. She is going back to [facility] today and will get services from [facility]. She will be transported by [facility]. She is not having pain and is moving her bowels ok. MELI Tinsley [address] [facility], [address], [place], [address], [facility] 06/09/2017 10:25:35 OBGyn Episode No OBEpisode recorded.
== END 2024-06-21 15:14 | disposition home or self-care (01) ==
PROVIDERS: Visit Provider Nurse Practitioner Family
DX: I48.0 Paroxysmal atrial fibrillation (principal); I47.10 Supraventricular tachycardia, unspecified; I50.9 Heart failure, unspecified; G47.33 Obstructive sleep apnea (adult) (pediatric)
CPT/HCPCS: 93010; 99213; G2211

== ENCOUNTER → 2024-06-21 14:33 | Outpatient (BNVA) | payer MEDICARE, OTHER, SELFPAY | PROVIDERS: Visit Provider Nurse Practitioner Family | DX: I48.0 Paroxysmal atrial fibrillation (principal); I47.10 Supraventricular tachycardia, unspecified; I50.9 Heart failure, unspecified; G47.33 Obstructive sleep apnea (adult) (pediatric); R00.1 Bradycardia, unspecified | CPT/HCPCS: 93005; 99212 ==

== ENCOUNTER 2024-12-03 13:01 | Outpatient (AMB) | payer MEDICARE, OTHER, SELFPAY ==
[2024-12-03 13:05] VITALS: BP 108/62; PULSE 56
--- NOTE | 2024-12-03 13:05 | A.OFFVIS_ITS ---
Vital Signs 12/03/24 13:05 Height 5 ft 1 in BP 108/62 Blood Pressure Location Lt brachial Position Sitting Pulse 56 Pulse Source Pulse Oximeter Intake Visit Reasons: 6m follow up Inspector Of Dredging Required: No Imaging Engineer: Imaging Engineer Present Allergies No Known Allergies (No Known Allergies*) Allergy (Verified 12/03/24 13:07) Medication List - Last Reconciled 12/03/24 by Mindy Pemberton, SOLDERING MACHINE OPERATOR HELPER-C apixaban (Eliquis) 5 mg PO BID atorvastatin 80 mg PO BEDTIME bupropion HCl XL 100 mg PO BID docusate sodium 100 mg PO BID fluticasone propion-salmeterol 45-21 mcg/actuation (Advair HFA) 2 puffs inhalation BID meclizine 12.5 mg PO BID methenamine hippurate 1 g PO Q12H metoprolol succinate ER 50 mg See Protocol PO ONCE montelukast 10 mg PO DAILY risperidone 0.25 mg PO DAILY sertraline 200 mg PO ONCE HPI HPI 6m follow up: Details: Patsy is an 84-year-old female with past medical history CVA 2014, obstructive sleep apnea untreated, who was admitted to [facility] 01/2023 with acute UTI, metabolic encephalopathy, sepsis. During that admission she did have paroxysmal atrial fibrillation followed by episodes of SVT. She was treated for heart rate control and put on metoprolol. She was already on Eliquis due to prior CVA. She has not had known recurrent AFib since that time. Today she reports that she has been doing well since her last visit in September. She is not noticing any heart palpitations. She is mostly sedentary and uses a wheelchair. She says she only ambulates a few steps with assistance. She denies any chest discomfort at rest or with activity. No concerning shortness of breath, presyncope, syncope, falls. No PND, orthopnea. She has chronic lower leg edema which she says is recently unchanged. 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 [facility]. Family member present. [facility] Medical History CARON (obstructive sleep apnea) COPD (chronic obstructive pulmonary disease) Anxiety disorder History of stroke Social History Alcohol intake: former Patient Tobacco Use Status: Former Tobacco user Advance Directives Date on File: 02/10/23 service: No Review of Systems Const All systems reviewed & are unremarkable except as noted in HPI and below ENT Denies dizziness Card Denies chest pain, Denies chest pain at rest, Denies chest pain with activity, Denies rapid heart rate, Denies pedal edema, Denies edema, Denies leg edema, Denies lightheadedness, Denies palpitations, Denies dyspnea, Denies dyspnea on exertion and Denies orthopnea Resp Denies cough, Denies dyspnea and Denies dyspnea on exertion GI Denies hematochezia and Denies change in stool character Musc Denies abnormal gait, Denies limited range of motion, Denies muscle cramps, Denies muscle weakness, Denies numbness, Denies radiating pain into limb, Denies stiffness and Denies tingling Neuro Denies abnormal gait, Denies dizziness, Denies numbness and Denies tingling Endo Denies palpitations Physical Exam Vital Signs: Last Vital Signs Pulse 56 12/03/24 13:05 BP 108/62 12/03/24 13:05 Const General: cooperative, healthy appearing, comfortable and no acute distress Orientation/consciousness: patient oriented x3 Neck Neck: Yes normal visual inspection Resp Effort & Inspection: normal respiratory effort Auscultation: clear to auscultation bilaterally, no rales, no rhonchi and no wheezes Cardio Rate: regular rate Rhythm: regular rhythm Heart sounds: S1 normal heart sound present, S2 normal heart sound present, no gallops, no murmurs and no rubs GI Inspection: Yes normal to inspection Skin General skin exam: no rashes or lesions noted Neuro General: patient oriented x3 Extrem Other: sitting in wheelchair, not ambulatory General: Yes normal to inspection Psych Appearance: grossly normal Mental Status: mental status grossly normal Speech and movement: Normal speech and movement present Assessment & Plan Assessment & Plan (1) PAF (paroxysmal atrial fibrillation): Code(s): I48.0 - Paroxysmal atrial fibrillation Category: Medical Plan: Episode of paroxysmal atrial fibrillation during acute illness 01/2023. No known recurrent atrial fibrillation since that time. Echocardiogram done 02/15/2023 showed EF 60-65%, mildly calcified aortic valve, severe posterior mitral annular calcification, grade 1 diastolic dysfunction. Pulse regular on examination today. No reports of heart palpitations. Continue metoprolol XL 50 mg daily. Continue Eliquis for anticoagulation. Caffeine reduction reviewed. Cardiology follow-up 9 months, sooner if needed. (2) SVT (supraventricular tachycardia): Code(s): I47.10 - Supraventricular tachycardia, unspecified Category: Medical Plan: Episodes of SVT, as well as the PAF, noted during hospitalization 01/2023, asymptomatic. No known or documented SVT since that time. Continue metoprolol. (3) Congestive heart failure: Code(s): I50.9 - Heart failure, unspecified Category: Medical Plan: Mild Congestive heart failure during prior hospital admission. Echocardiogram does show grade 1 diastolic dysfunction. On exam today she does not appear fluid overloaded. She continues on low-dose Lasix. Signs and symptoms of heart failure reviewed. (4) CARON (obstructive sleep apnea): Code(s): G47.33 - Obstructive sleep apnea (adult) (pediatric) Category: Medical Plan: Patient states she had a CPAP mask in the past but she would pull it off so they ended taking it away. She is not currently being treated for sleep apnea. Plan Time spent on chart review, documentation, interview and assessment Medications: Changed From metoprolol succinate ER 25 mg See Protocol PO BID 60 tabs 1RF To metoprolol succinate ER 50 mg See Protocol PO ONCE Coding Level of Care Code Est Pt Level 3 (29137) Complex EM visit Add On G2211 Diagnoses PAF (paroxysmal atrial fibrillation) I48.0 SVT (supraventricular tachycardia) I47.10 Congestive heart failure I50.9 CARON (obstructive sleep apnea) G47.33 Time Spent (min) 24
--- OUTSIDE RECORDS SUMMARY | 2024-12-03 13:21 | XMS_ITS | Encounter Summary ---
Author Organization [facility] Address [address] [address] Phone Care Team Providers Care Psychologist Military Personnel Name Role Phone Malia Hernandez NP Primary Care Provider [phone] Yo Tang MD Primary Care Provider [phone] Encounter Details Date Type Department Care Team (Late st Contact Info) Description 06/09/2017 Transcribe Orders [facility] Specimen Processing [address] [place] [address] Eduardo Holm MD [address] [facility] [address], [address] [place] [address] [email or web address] Urinary tract infection without hematuria, site unspecified (Primary Dx) Social History Tobacco Use Types Packs/Day Years Used Date Smoking Tobacco: Never Assessed Comments Unknown Sex and Gender Information Value Date Recorded Sex Assigned at Not on file Legal Sex Female 8:16 AM EDT Gender Identity Not on file Sexual Orientation Not on file documented as of this encounter Plan of Treatment Not on file documented as of this encounter Results * (ABNORMAL) Urinalysis with sediment (06/07/2017 6:45 AM EST) WBC 21-49(A) NONE SEEN /hpf [facility] RBC 11-20(A) NONE SEEN /hpf [facility] URINE EPITHELIAL 21-49(A) NONE SEEN [facility] MUCUS NONE SEEN NONE SEEN /hpf [facility] BACTERIA 3+(A) NONE SEEN [facility] COLOR STRAW(A) Yellow [facility] CLARITY CLOUDY [facility] GLUCOSE Negative Negative [facility] BILI Negative Negative [facility] KETONES Negative Negative [facility] SPECIFIC GRAVITY 1.015 1.005 - 1.030 [facility] BLOOD Trace(A) Negative [facility] PH 6.0 5.0 - 8.0 [facility] Protein-UA Negative Negative [facility] NITRITE Negative Negative [facility] Leukocyte esterase, ur 2+(A) Negative [facility] Urine (Urine) 06/07/2017 6:4 5 AM EST 06/09/2017 6:59 AM EST us Eduardo Holm MD URINE ORDERABLES Final Result Performing Organization Address City/State/[facility] Co de Phone Number [facility] [address] [place] [address] documented in this encounter Visit Diagnoses Diagnosis Urinary tract infection without hematuria, site unspecified- Primary documented in this encounter Care Teams Psychologist Military Personnel Relationship Specialty Start Date End Date Malia Hernandez, [employer]OUNTAIN OPERATOR [address] [place] [address] PCP - General Nurse Practitioner 03/01/17 11/04/21 Yo Tang MD [address] [place] [id number] PCP - General Internal Medicine 11/05/21 documented as of this encounter Additional Source Comments The information contained in this document represents components of the legal health record. It is not the complete legal health record.[facility]
== END 2024-12-03 13:35 | disposition home or self-care (01) ==
LOC: HO.HCS 13:01
PROVIDERS: PCP Internal Medicine; Visit Provider Nurse Practitioner Family
DX: I48.0 Paroxysmal atrial fibrillation (principal); I47.10 Supraventricular tachycardia, unspecified; I50.9 Heart failure, unspecified; G47.33 Obstructive sleep apnea (adult) (pediatric)
CPT/HCPCS: 99213; G2211

== ENCOUNTER → 2024-12-03 13:01 | Outpatient (BNVA) | payer MEDICARE, OTHER, SELFPAY | PROVIDERS: PCP Internal Medicine; Visit Provider Nurse Practitioner Family | DX: I48.0 Paroxysmal atrial fibrillation (principal); I47.10 Supraventricular tachycardia, unspecified; I50.9 Heart failure, unspecified; G47.33 Obstructive sleep apnea (adult) (pediatric) | CPT/HCPCS: 99212 ==